=== PATIENT | male | born 1950 | race Caucasian/White ===

== ENCOUNTER 2018-08-03 10:10 | Outpatient (REF) | payer MEDICARE, BC, SELFPAY ==
[2018-08-03 20:44] LABS: Abs Immature Grans 0.01 k/cumm (0.0-0.09); Absolute Basophil Count 0.02 k/cumm (0.0-0.2); Absolute Eosinophil Count 0.08 k/cumm (0.0-0.7); Absolute Lymphocyte Count 1.01 k/cumm (1.2-3.4); Absolute Monocyte Count 0.48 k/cumm (0.11-0.7); Absolute Neutrophil Count 3.02 k/cumm (1.2-6.7); Basophils % 0.4; Eosinophils % 1.7; HCT 44.9 % (40.0-50.0); Immature Grans % 0.2; Lymphocytes % 21.9; Mean Corp. HGB Concentration 33.4 g/dL (32.0-36.0); Mean Corpuscular Hemoglobin 32.8 pg (27.0-33.0); Mean Platelet Volume 10.5 fL (8.0-11.0); Monocytes % 10.4; Neutrophils % 65.4; Platelet Count 160 x1000/uL (130-400); RBC 4.58 m/cumm (4.50-6.00); RBC Distribution Width 12.3 % (11.8-14.1); White Blood Cell Count 4.62 k/cumm (4.4-10.8)
[2018-08-03 21:10] LABS: Anion Gap 11.4 mmol/L (3-11); BUN 18 mg/dL (7-18); CO2 25.6 mmol/L (21.0-32.0); CREATININE 0.93 mg/dL (0.70-1.30); Calculated LDL 139; Chloride 103 mmol/L (98-107); Cholesterol 218 mg/dL (50-200); Glucose 82 mg/dL (70-100); HDL Cholesterol 62 mg/dL (40-60); Potassium 4.4 mmol/L (3.5-5.1); Sodium 140 mmol/L (136-145); TSH (W/Ref FT4) 1.84 uIU/mL (0.358-3.74); Triglyceride 88 mg/dL (30-150)
[2018-08-05 10:19] LABS: PSA, Screening 0.9 ng/ml (0-4.5)
== END 2018-08-03 10:30 ==
LOC: NCHCN 10:10
PROVIDERS: PCP Nurse Practitioner Family; Visit Provider Family Medicine
DX: I10 Essential (primary) hypertension (principal); N28.9 Disorder of kidney and ureter, unspecified; Z00.00 Encounter for general adult medical examination without abnormal findings; Z80.42 Family history of malignant neoplasm of prostate; Z80.8 Family history of malignant neoplasm of other organs or systems
CPT/HCPCS: 80048; 80061; 83721; 84153; 84443; 85025

== ENCOUNTER 2019-01-08 13:08 | Outpatient (REF) | payer MEDICARE, BC, SELFPAY ==
[2019-01-08 19:20] LABS: ALT 31 U/L (16-63); AST 23 U/L (15-37); Albumin 3.9 g/dL (3.4-5.0); Alkaline Phosphatase 61 U/L (46-116); Bilirubin, Total 0.8 mg/dL (0.2-1.0); Calculated LDL 105 mg/dL; Cholesterol 177 mg/dL (50-200); HDL Cholesterol 54 mg/dL (40-60); Triglyceride 90 mg/dL (30-150)
[2019-01-08 19:29] LABS: Bilirubin, Direct 0.22 mg/dL (0.00-0.20)
== END 2019-01-08 13:28 ==
LOC: NCHCN 13:08
PROVIDERS: PCP Family Medicine; Visit Provider Family Medicine
DX: E78.2 Mixed hyperlipidemia (principal)
CPT/HCPCS: 80061; 80076

== ENCOUNTER 2019-08-30 10:44 | Outpatient (REF) | payer MEDICARE, BC, SELFPAY ==
[2019-08-30 21:15] LABS: HCT 44.6 % (40.0-50.0); HGB 14.8 g/dL (13.5-17.5); Mean Corp. HGB Concentration 33.2 g/dL (32.0-36.0); Mean Corpuscular Hemoglobin 32.5 pg (27.0-33.0); Mean Corpuscular Volume 97.8 fL (80-95); Mean Platelet Volume 10.2 fL (8.0-11.0); Platelet Count 202 x1000/uL (130-400); RBC 4.56 m/cumm (4.50-6.00); RBC Distribution Width 12.4 % (11.8-14.1); White Blood Cell Count 4.08 k/cumm (4.4-10.8)
[2019-08-30 21:26] LABS: Calculated LDL 107 mg/dL (<100); Cholesterol 199 mg/dL (<200); HDL Cholesterol 57 mg/dL (40-60); Triglyceride 178 mg/dL (<150)
== END 2019-08-30 11:04 ==
LOC: NCHCN 10:44
PROVIDERS: PCP Family Medicine; Visit Provider Nurse Practitioner Community Health
DX: E78.2 Mixed hyperlipidemia (principal); Z91.89 Other specified personal risk factors, not elsewhere classified; J02.9 Acute pharyngitis, unspecified; K21.9 Gastro-esophageal reflux disease without esophagitis
CPT/HCPCS: 80061; 85027

== ENCOUNTER 2019-12-06 14:10 | Outpatient (REF) | payer MEDICARE, BC, SELFPAY ==
[2019-12-06 22:04] LABS: Abs Immature Grans 0.02 10^3/uL (0.0-0.06); Absolute Basophil Count 0.01 10^3/uL (0.0-0.2); Absolute Eosinophil Count 0.03 10^3/uL (0.0-0.7); Absolute Lymphocyte Count 0.91 10^3/uL (1.2-3.4); Absolute Monocyte Count 0.42 10^3/uL (0.1-0.8); Absolute Neutrophil Count 3.54 10^3/uL (1.2-6.7); Basophils % 0.2; Eosinophils % 0.6; HCT 43.6 % (40.0-50.0); HGB 14.5 g/dL (13.5-17.5); Immature Grans % 0.4; Lymphocytes % 18.5; MCHC 33.3 % (32.0-36.0); MCV 96.2 fL (80-95); MPV 10.3 fL (8.0-11.0); Monocytes % 8.5; Neutrophils % 71.8; Nucleated RBC 0 %; Platelet Count 225 10^3/uL (130-400); RBC 4.53 10^6/uL (4.36-5.78); RDW 12.2 % (11.8-14.1); RDW-SD 43.7 fL; WBC 4.93 10^3/uL (4.4-10.8)
[2019-12-06 22:37] LABS: ALT 31 U/L (16-63); AST 28 U/L (15-37); Albumin 3.8 g/dL (3.4-5.0); Alkaline Phosphatase 64 U/L (46-116); Anion Gap 7.6 mmol/L (3-11); BUN 14 mg/dL (7-18); Bilirubin, Total 0.7 mg/dL (0.2-1.0); CO2 30.4 mmol/L (21.0-32.0); CREATININE 1.08 mg/dL (0.70-1.30); Calcium 9.2 mg/dL (8.5-10.1); Chloride 103 mmol/L (98-107); Glucose 93 mg/dL (74-106); Potassium 4.2 mmol/L (3.5-5.1); Sodium 141 mmol/L (136-145); Total Protein 6.9 g/dL (6.4-8.2)
[2019-12-06 22:41] LABS: ESR 9 mm/hr (1-20)
[2019-12-08 10:06] LABS: Lyme Ab w Rflx to Lyme Confirm Negative (Negative)
[2019-12-09 23:47] LABS: Anaplasma phagocytophilum Negative (Negative); B. miyamotoi PCR Negative (Negative); Babesia divergens/MO-1 Negative (Negative); Babesia duncani Negative (Negative); Babesia microti Negative (Negative); Ehrlichia chaffeensis Negative (Negative); Ehrlichia ewingii/canis Negative (Negative); Ehrlichia muris eauclairensis Negative (Negative)
== END 2019-12-06 14:30 ==
LOC: NCHCN 14:10
PROVIDERS: PCP Family Medicine; Visit Provider Nurse Practitioner Community Health
DX: D72.819 Decreased white blood cell count, unspecified (principal); M79.10 Myalgia, unspecified site
CPT/HCPCS: 80053; 85652; 87798; 85025; 86618

== ENCOUNTER 2020-09-05 11:49 | Outpatient (REF) | payer MEDICARE, BC, SELFPAY ==
[2020-09-04 22:42] LABS: Hemoglobin A1C 5.1 % (<5.7)
[2020-09-04 23:10] LABS: ALT 23 U/L (16-63); AST 53 U/L (15-37); Alkaline Phosphatase 76 U/L (46-116); Anion Gap 9.3 mmol/L (3-11); BUN 12 mg/dL (7-18); Bilirubin, Total 0.6 mg/dL (0.2-1.0); CO2 30.7 mmol/L (21.0-32.0); CREATININE 1.3 mg/dL (0.70-1.30); Calculated LDL 93 mg/dL (<100); Chloride 102 mmol/L (98-107); Cholesterol 189 mg/dL (<200); Glucose 99 mg/dL (74-106); HDL Cholesterol 71 mg/dL (40-60); Magnesium 1.8 mg/dL (1.8-2.4); Potassium 4.2 mmol/L (3.5-5.1); Sodium 142 mmol/L (136-145); Triglyceride 128 mg/dL (<150); Vitamin B12 413 pg/mL (193-986)
== END 2020-09-05 11:50 | disposition home or self-care (01) ==
LOC: NCHCN 11:49
PROVIDERS: PCP Family Medicine; Visit Provider Nurse Practitioner Family
DX: Z00.00 Encounter for general adult medical examination without abnormal findings; Z51.81 Encounter for therapeutic drug level monitoring; K21.9 Gastro-esophageal reflux disease without esophagitis; E78.2 Mixed hyperlipidemia; R03.0 Elevated blood-pressure reading, without diagnosis of hypertension; N28.9 Disorder of kidney and ureter, unspecified
CPT/HCPCS: 80053; 80061; 82607; 83036; 83735

== ENCOUNTER 2021-08-07 16:13 | Outpatient (REF) | payer MEDICARE, BC, SELFPAY ==
[2021-08-07 21:05] LABS: ALT 33 U/L (16-63); AST 34 U/L (15-37); Alkaline Phosphatase 70 U/L (46-116); Anion Gap 9.4 mmol/L (3-11); BUN 18 mg/dL (7-18); Bilirubin, Total 0.5 mg/dL (0.2-1.0); CO2 27.6 mmol/L (21.0-32.0); CREATININE 1.1 mg/dL (0.70-1.30); Calcium 8.7 mg/dL (8.5-10.1); Calculated LDL 109 mg/dL (<100); Chloride 105 mmol/L (98-107); Cholesterol 202 mg/dL (<200); Glucose 84 mg/dL (74-106); HDL Cholesterol 72 mg/dL (40-60); Magnesium 1.9 mg/dL (1.8-2.4); Sodium 142 mmol/L (136-145); Triglyceride 105 mg/dL (<150)
== END 2021-08-07 16:14 | disposition home or self-care (01) ==
LOC: NCHCN 16:13
PROVIDERS: PCP Family Medicine; Visit Provider Nurse Practitioner Family
DX: I10 Essential (primary) hypertension (principal); E78.5 Hyperlipidemia, unspecified; K21.9 Gastro-esophageal reflux disease without esophagitis; Z51.81 Encounter for therapeutic drug level monitoring
CPT/HCPCS: 80053; 80061; 83735

== ENCOUNTER 2021-12-17 12:09 | Outpatient (REF) | payer MEDICARE, BC, SELFPAY ==
[2021-12-17 14:19] LABS: Abs Immature Grans 0.01 10^3/uL (0.0-0.06); Absolute Basophil Count 0.02 10^3/uL (0.0-0.2); Absolute Eosinophil Count 0.05 10^3/uL (0.0-0.7); Absolute Lymphocyte Count 1.01 10^3/uL (1.2-3.4); Absolute Monocyte Count 0.49 10^3/uL (0.1-0.8); Absolute Neutrophil Count 2.98 10^3/uL (1.2-6.7); Basophils % 0.4; Eosinophils % 1.1; HCT 42.1 % (40.0-50.0); HGB 14.3 g/dL (13.5-17.5); Immature Grans % 0.2; Lymphocytes % 22.1; MCH 32.4 pg (27.0-33.0); MCV 95 fL (80-95); MPV 9.8 fL (8.0-11.0); Monocytes % 10.7; Neutrophils % 65.5; Platelet Count 198 10^3/uL (130-400); RBC 4.42 10^6/uL (4.36-5.78); RDW 11.8 % (11.8-14.1); RDW-SD 41.5 fL; WBC 4.56 10^3/uL (4.4-10.8)
== END 2021-12-17 12:10 | disposition home or self-care (01) ==
LOC: NCHCN 12:09
PROVIDERS: PCP Family Medicine; Visit Provider Nurse Practitioner Family
DX: D72.819 Decreased white blood cell count, unspecified (principal)
CPT/HCPCS: 85025

== ENCOUNTER 2022-01-07 15:11 | Outpatient (REF) | payer MEDICARE, BC, SELFPAY ==
[2022-01-07 15:18] LABS: ESR 5 mm/hr (0-20)
[2022-01-07 15:50] LABS: ALT 27 U/L (16-63); AST 29 U/L (15-37); Albumin 3.9 g/dL (3.4-5.0); Alkaline Phosphatase 64 U/L (46-116); Anion Gap 6.2 mmol/L (3-11); BUN 14 mg/dL (7-18); Bilirubin, Total 0.6 mg/dL (0.2-1.0); CO2 29.8 mmol/L (21.0-32.0); Calcium 9.3 mg/dL (8.5-10.1); Calculated LDL 92 mg/dL (<100); Chloride 104 mmol/L (98-107); Cholesterol 195 mg/dL (<200); Estimated GFR 81.47 (mL/min/1.73m2); Glucose 93 mg/dL (74-106); HDL Cholesterol 72 mg/dL (40-60); Potassium 4.2 mmol/L (3.5-5.1); Sodium 140 mmol/L (136-145); Total Protein 7.5 g/dL (6.4-8.2); Triglyceride 156 mg/dL (<150)
[2022-01-07 21:44] LABS: CRP, High Sensitivity <0.34 mg/L (See Note)
[2022-01-08 10:27] LABS: Lyme Ab w Rflx to Lyme Confirm Negative (Negative)
[2022-01-09 20:27] LABS: Anaplasma phagocytophilum Negative (Negative); B. miyamotoi PCR Negative (Negative); Babesia divergens/MO-1 Negative (Negative); Babesia duncani Negative (Negative); Babesia microti Negative (Negative); Ehrlichia chaffeensis Negative (Negative); Ehrlichia ewingii/canis Negative (Negative); Ehrlichia muris eauclairensis Negative (Negative)
== END 2022-01-07 15:12 | disposition home or self-care (01) ==
LOC: NCHCN 15:11
PROVIDERS: PCP Family Medicine; Visit Provider Nurse Practitioner Family
DX: E78.2 Mixed hyperlipidemia (principal); M25.50 Pain in unspecified joint; Z11.8 Encounter for screening for other infectious and parasitic diseases
CPT/HCPCS: 80053; 80061; 85652; 86141; 87798; 86618

== ENCOUNTER 2022-01-31 11:31 | Outpatient (REF) | payer MEDICARE, BC, SELFPAY ==
[2022-01-31 15:27] LABS: Hemoglobin A1C 5.3 % (<5.7)
[2022-01-31 15:51] LABS: TSH (W/Ref FT4) 2.59 uIU/mL (0.36-3.74); Vitamin B12 358 pg/mL (193-986)
[2022-01-31 15:54] LABS: Folate > 20.0 ng/mL (8.6-20.0)
== END 2022-01-31 11:32 | disposition home or self-care (01) ==
LOC: NCHCN 11:31
PROVIDERS: PCP Family Medicine; Visit Provider Nurse Practitioner Family
DX: G62.9 Polyneuropathy, unspecified (principal); I10 Essential (primary) hypertension; E78.2 Mixed hyperlipidemia; R68.89 Other general symptoms and signs; R79.89 Other specified abnormal findings of blood chemistry
CPT/HCPCS: 82607; 82746; 83036; 84443

== ENCOUNTER 2022-02-28 08:55 | Outpatient (REF) | payer MEDICARE, BC, SELFPAY ==
--- OUTSIDE RECORDS SUMMARY | 2022-02-28 08:56 | XMS_ITS | CCD ---
:1950 Author Care Team Providers Name Role Phone REKHA MULTANI Attending Physician Unavailable Vital Signs Unknown or Not Available. Allergies Allergy Code Allergy Type Reaction Status SULFA (SULFONAMIDE ANTIBIOTICS) {Clinical 0 Drug allergy ABDOMINAL PAIN Active monitoring unavailable} Procedures Unknown or Not Available. History of Immunizations Unknown or Not Available. Problems Unknown or Not Available. Results Unknown or Not Available. Active Medications Medication Code Dose Units Frequency Route Modification Start Date/Time Xarelto 20MG [id number] 1 TABLET DAILY ORAL 01/18/2022 Oral Tablet 06:27 Prescription Detail TAKE 1 TABLET ORAL DAILY Xarelto 15MG Oral Tablet [id number] 1 TABLET TWICE A DAY ORAL 01/18/2022 06:26 Prescription Detail TAKE 1 TABLET ORAL TWICE A D AY Medications Administered During Visit Unknown or Not Available. Encounters Encounter Diagnosis Diagnosis Code Start Date Cough, unspecified R059 12/18/2021 Social History Smoking Status Code Start Date End Date Never smoker [id number] Patient Decision Aids Unknown or Not Available. Discharge Instructions You were admitted to [place] [facility] on 12/18/2021 08:21 with a principal diagnosis of Cough, unspecified You were discharged from [facility] on 12/18/2021 08:21 Should you have any questions prior to d ischarge, please contact a member of your healthcare team. If you have left the ho spital and have any questions, please contact your primary care physician. Chief Complaint and Reason For Visit Chief Complaint Date of Onset URI Function Status Unknown or Not Available. Plan of Care Unknown or Not Available. Referral/Transition of Care Unknown or Not Available.
--- OUTSIDE RECORDS SUMMARY | 2022-02-28 08:57 | XMS_ITS | CCD ---
[...] Frequency Route Modification Start Date/Time Xarelto 20MG 7385743 1 TABLET DAILY ORAL 01/18/2022 Oral Tablet 06:27 Prescription Detail TAKE 1 TABLET ORAL DAILY Xarelto 15MG Oral Tablet [id number] 1 TABLET TWICE A DAY ORAL 01/18/2022 06:26 Prescription Detail TAKE 1 TABLET ORAL TWICE A D AY Medications Administered During Visit Unknown or Not Available. Encounters Encounter Diagnosis Diagnosis Code Start Date Right upper quadrant pain R1011 02/07/2022 Social History Smoking Status Code Start Date End Date Never smoker [id number] Patient Decision Aids Unknown or Not Available. Discharge Instructions You were admitted to [facility] on 02/07/2022 09:11 with a principal diagnosis of Right upper quadrant pain You were discharged from [facility] on 02/07/2022 09:11 Should you have any questions prior to d ischarge, please contact a member of your healthcare team. If you have left the spital and have any questions, please contact your primary care physician. Chief Complaint and Reason For Visit Chief Complaint Date of Onset RUQ PAIN Function Status Unknown or Not Available. Plan of Care Unknown or Not Available. Referral/Transition of Care Unknown or Not Available.
--- OUTSIDE RECORDS SUMMARY | 2022-02-28 08:57 | XMS_ITS | CCD ---
[...] Frequency Route Modification Start Date/Time Xarelto 20MG [id number] 1 TABLET DAILY ORAL 01/18/2022 Oral Tablet 06:27 Prescription Detail TAKE 1 TABLET ORAL DAILY Xarelto 15MG Oral Tablet 4266783 1 TABLET TWICE A DAY ORAL 01/18/2022 06:26 Prescription Detail TAKE 1 TABLET ORAL TWICE A D AY Medications Administered During Visit Unknown or Not Available. Encounters Encounter Diagnosis Diagnosis Code Start Date Other pulmonary embolism without acute cor pulmonale I2699 01/25/2022 Social History Smoking Status Code Start Date End Date Never smoker [id number] Patient Decision Aids Unknown or Not Available. Discharge Instructions You were admitted to [facility] on 01/25/2022 13:12 with a principal diagnosis of Other pulmonary embolism without acut e cor pulmonale You were discharged from [facility] on 01/25/2022 13:12 Should you have any questions prior to d ischarge, please contact a member of your healthcare team. If you have left the [facility] and have any questions, please contact your primary care physician. Chief Complaint and Reason For Visit Chief Complaint Date of Onset PULMONARY EMBOLISM Function Status Unknown or Not Available. Plan of Care Unknown or Not Available. Referral/Transition of Care Unknown or Not Available.
[2022-02-28 14:54] LABS: ALT 38 U/L (16-63); AST 45 U/L (15-37); Alkaline Phosphatase 70 U/L (46-116); Anion Gap 6.4 mmol/L (3-11); BUN 13 mg/dL (7-18); Bilirubin, Total 0.7 mg/dL (0.2-1.0); CO2 31.6 mmol/L (21.0-32.0); CREATININE 1.1 mg/dL (0.70-1.30); Calcium 9.2 mg/dL (8.5-10.1); Calculated LDL 73 mg/dL (<100); Chloride 103 mmol/L (98-107); Cholesterol 165 mg/dL (<200); Estimated GFR 72.67 (mL/min/1.73m2); Glucose 96 mg/dL (74-106); HDL Cholesterol 61 mg/dL (40-60); Potassium 4.1 mmol/L (3.5-5.1); Sodium 141 mmol/L (136-145); Total Protein 7.3 g/dL (6.4-8.2); Triglyceride 159 mg/dL (<150)
== END 2022-02-28 08:56 | disposition home or self-care (01) ==
LOC: NCHCN 08:55
PROVIDERS: PCP Family Medicine; Visit Provider Nurse Practitioner Family
DX: E78.2 Mixed hyperlipidemia (principal); I10 Essential (primary) hypertension
CPT/HCPCS: 80053; 80061

== ENCOUNTER 2022-03-06 10:52 | Outpatient (REF) | payer MEDICARE, BC, SELFPAY ==
[2022-03-06 14:22] LABS: Abs Immature Grans 0.02 10^3/uL (0.0-0.06); Absolute Basophil Count 0.01 10^3/uL (0.0-0.2); Absolute Eosinophil Count 0.05 10^3/uL (0.0-0.7); Absolute Lymphocyte Count 1.19 10^3/uL (1.2-3.4); Absolute Monocyte Count 0.42 10^3/uL (0.1-0.8); Absolute Neutrophil Count 2.69 10^3/uL (1.2-6.7); Basophils % 0.2; Eosinophils % 1.1; HCT 42.8 % (40.0-50.0); HGB 14.3 g/dL (13.5-17.5); Immature Grans % 0.5; Lymphocytes % 27.2; MCH 31.8 pg (27.0-33.0); MCHC 33.4 % (32.0-36.0); MCV 95 fL (80-95); Monocytes % 9.6; Neutrophils % 61.4; Platelet Count 178 10^3/uL (130-400); RDW 11.6 % (11.8-14.1); RDW-SD 40.8 fL; WBC 4.38 10^3/uL (4.4-10.8)
== END 2022-03-06 10:53 | disposition home or self-care (01) ==
LOC: NCHCN 10:52
PROVIDERS: PCP Family Medicine; Visit Provider Nurse Practitioner Family
DX: M25.50 Pain in unspecified joint (principal); I10 Essential (primary) hypertension; G62.9 Polyneuropathy, unspecified
CPT/HCPCS: 85025

== ENCOUNTER 2023-07-22 16:22 | Outpatient (REF) | payer MEDICARE, BC, SELFPAY ==
[2023-07-22 21:52] LABS: ALT 27 U/L (16-63); AST 37 U/L (15-37); Alkaline Phosphatase 71 U/L (46-116); BUN 10 mg/dL (7-18); Bilirubin, Total 0.6 mg/dL (0.2-1.0); CREATININE 1.1 mg/dL (0.70-1.30); Calcium 9.6 mg/dL (8.5-10.1); Calculated LDL 88 mg/dL (<100); Chloride 105 mmol/L (98-107); Cholesterol 194 mg/dL (<200); Estimated GFR 71.77 (mL/min/1.73m2); Glucose 97 mg/dL (74-106); HDL Cholesterol 82 mg/dL (40-60); Potassium 3.8 mmol/L (3.5-5.1); Sodium 138 mmol/L (136-145); Total Protein 7.6 g/dL (6.4-8.2); Triglyceride 124 mg/dL (<150)
== END 2023-07-22 16:23 | disposition home or self-care (01) ==
LOC: NCHCN 16:22
PROVIDERS: Visit Provider Family Medicine
DX: E78.5 Hyperlipidemia, unspecified (principal)
CPT/HCPCS: 80053; 80061; 84153

== ENCOUNTER 2023-08-29 11:18 | Outpatient (REF) | payer MEDICARE, BC, SELFPAY ==
--- OUTSIDE RECORDS SUMMARY | 2023-08-29 11:21 | XMS_ITS ---
Author Name Unknown Address [address] [place] [phone] Phone Organization Unknown Address [address] [place] [address] [phone] Phone Care Team Providers Care Independent Film Maker Name Role Phone RANGEL DA SILVA Attending Unavailable Results CT ANGIOGRAPHY CHEST - Compl eted: 01/25/2022 13:54 LOINC: [place], [place] [address] PACS SOFTWARE ARCHITECT REPORT Patient Name: KIM MCKINLEY MRN: Sex: : Age: [id number] M 1950 71 Account: Accession: Admit: StayType: [id number] 01/25/2022 O/P Ordered: Order ID: Submitted: Ordering Provider: 01/25/2022 13:17 [id number] [facility] REKHA MULTANI Completed: Technologist: Resulted: 01/25/2022 13:54 MLL 04/16/2022 11:12 Study Description: CT ANGIOGRAPHY CHEST Study Reason: PULMONARY EMBOLISM TECHNIQUE: Imaging Protocol: CT angiography of the chest was performed using pulmonary embolus protocol. Multi planar reconstructions were performed. CONTRAST MATERIAL Intravenous: Omnipaque 350 Contrast volume: 100 cc COMPARISON: No exams were available for comparison FINDINGS: CHEST: PULMONARY ARTERIES: There are presently no intraluminal filling defects to suggest acute pulmonary emboli. The previously described intraluminal filling defect seen in the right lower lobe vessels is no longer seen. No new intraluminal filling defects. LUNGS: No infiltrates nor pleural effusions. No evidence of pulmonary infarct. MEDIASTINUM: There is no hilar nor mediastinal adenopathy. CARDIAC: Heart size is normal. There is no pericardial effusion.Caliber of the thoracic aorta is within normal limits. No evidence of aortic dissection. The left vertebral artery is noted to originate off the aortic arch instead of originating in conventional fashion off the left subclavian artery. There is no evidence of shift of the interventricular septum. PARTIALLY VISUALIZED UPPERMOST ABDOMEN: No obvious findings OSSEOUS: No significant osseous lesions and no fractures evident. IMPRESSION: 1. [No evidence of acute pulmonary emboli. Previously present intraluminal filling defects in right lower lobe vessels no longer seen. 2. No infiltrates nor evidence of pulmonary infarction. No pleural effusions. No intrathoracic adenopathy. Report Digitally Signed by Faheem Da Silva on 01/25/2022 02:06 PM EST Addendum ------ Addendum dictated 02-14 6:03 PM: This chest CT scan was compared to the prior chest CT scan performed 01/18/2022. Addendum Digitally Signed by Faheem Da Silva on 01/25/2022 06:04 PM EST Addendum ------ Addendum: Upon discussion with BASILIO Fried from [facility] [place] hematology, the images were reviewed from the 18 January and 25 January 2022 exams. The December study mentions thrombus extending into the a right lower lobe segmental and subsegmental branch. This appears artifactual due to mild streak artifact rather than true thrombus. Addendum Digitally Signed by Cira Lagunas on 04/16/2022 11:12 AM EST Social History Type Status Start Date End Date Code Code Syst em Smoking History Never smoker (Never Smoked) [id number] SNOMED CT Sex Male Medications Medication Start Date End Date Route Frequency Dose Code Code System Medication Instructions Home Meds Xarelto 15MG Oral Tablet 01/18/2022 Unknown ORAL TWICE A DAY 1 TABLET [id number] RxNorm TAKE 1 TABLET ORAL TWICE A DAY Xarelto 20MG Oral Tablet 01/18/2022 Unknown ORAL DAILY 1 TABLET [id number] RxNorm TAKE 1 TABLET ORAL DAILY Hospital Discharge Instructions Should you have any questions prior to discharge, please contact a member of your healthcare team. If you have left the hospital and have any questions, please contact your primary care physician. Reason For Referral No Data Found Allergies and Adverse Reactions Allergy Substance Reaction Severity Start Date Concern Status Co de Code System SULFA (SULFONAMIDE ANTIBIOTICS) Moderate Active Plan of Treatment US ABDOMEN LIMITED 1 ORGAN 02/07/2022 CT ANGIOGRAPHY PULMONARY PE 01/25/2022 PRE-OP COVID-19 TESTING 02/02/2022 X-RAY 12/18/2021 Encounters Encounter Diagnosis Start Date Code Code Sys tem Other pulmonary embolism without acute cor pulmonale 1 03/28/2021 SNOMED-CT Personal Care Team Section Performer Name Performer Role Active Date Inactive Da te
--- OUTSIDE RECORDS SUMMARY | 2023-08-29 11:21 | XMS_ITS ---
Author Name Unknown Address [address] [place] [address] [phone] Phone Organization Unknown Address [address] [place] [address] [phone] Phone Care Team Providers Care Public Speaking Teacher Name Role Phone RANGEL DA SILVA Attending Unavailable Results XR CHEST 2V PA AND LATERAL - Completed: 12/18/2021 08:41 [facility]: [place], [place] [address] PACS OPTICAL INSTRUMENT INSPECTOR REPORT Patient Name: KIM MCKINLEY MRN: Sex: : Age: [id number] M 1950 71 Account: Accession: Admit: StayType: [id number] 12/18/2021 E/R Ordered: Order ID: Entered Order: Ordering Provider: 12/18/2021 08:30 [id number] [facility] REKHA MULTANI Completed: Tech Completed: Resulted DTTM: 12/18/2021 08:41 MJP 12/18/2021 09:09 Study Description: XR CHEST 2V PA AND LATERAL Study Reason: URI Technique: 2D digital imaging was performed of the chest. 3 images were obtained. Comparison: None. FINDINGS: MEDIASTINUM: Normal. HEART: Normal. PULMONARY VASCULATURE: Normal. LUNGS: Clear. PLEURAL SPACE: No pleural effusion or pneumothorax. BONE:Within normal limits for the patient's age. OTHER FINDINGS:Normal. IMPRESSION: No acute pulmonary findings. Report Digitally Signed by Timo Cr on 12/18/2021 09:09 AM EDT Social History Type Status Start Date End Date Code Code Syst em Smoking History Never smoker (Never Smoked) [id number] SNOMED CT Sex Male Medications Medication Start Date End Date Route Frequency Dose Code Code System Medication Instructions Home Meds Xarelto 15MG Oral Tablet 01/18/2022 Unknown ORAL TWICE A DAY 1 TABLET 4462903 RxNorm TAKE 1 TABLET ORAL TWICE A DAY Xarelto 20MG Oral Tablet 01/18/2022 Unknown ORAL DAILY 1 TABLET 2086967 RxNorm TAKE 1 TABLET ORAL DAILY Hospital [...] Diagnosis Start Date Code Code Sys tem Cough, unspecified 12/18/2021 SNOMED-CT Personal Care Team Section Performer Name Performer Role Active Date Inactive Da te
--- OUTSIDE RECORDS SUMMARY | 2023-08-29 11:22 | XMS_ITS ---
Author Name Unknown Address [address] [place] [phone] Phone Organization Unknown Address [address] [place] [address] [phone] Phone Care Team Providers Care Stick Puller Name Role Phone RANGEL DA SILVA Attending Unavailable Results US ABD LIMITED ONE ORGAN - C ompleted: 02/07/2022 09:55 LOINC: [place], [place] [address] PACS PAN PULLER REPORT Patient Name: KIM MCKINLEY MRN: Sex: : Age: [id number] M 1950 71 Account: Accession: Admit: StayType: [id number] 02/07/2022 O/P Ordered: Order ID: Submitted: Ordering Provider: 02/07/2022 09:18 [id number] [facility] REKHA MULTANI Completed: Technologist: Resulted: 02/07/2022 09:55 GVS 02/07/2022 10:05 Study Description: US ABD LIMITED ONE ORGAN Study Reason: ABDOMINAL PAIN RUQ TECHNIQUE: Ultrasound abdomen performed using standard protocol. COMPARISON: Prior ultrasound 2012 FINDINGS: There is no ascites evident. LIVER: Liver is hyperechoic indicating steatosis. There are no discrete focal hepatic lesions identified. GALLBLADDER/BILIARY: There are no gallstones. No gallbladder wall edema nor pericholecystic fluid. The common hepatic duct isnot dilated, measuring 3-4mm at the level of emre hepatis. PANCREAS: There is no evidence of pancreatic mass nor dilatation of the pancreatic duct. RIGHT KIDNEY: There is a 2 x 1.6 cm parapelvic cyst. No solid masses. No calculi. No hydronephrosis. ABDOMINAL AORTA AND IVC: Visualized portions exhibit normal caliber. IMPRESSION: 1. No evidence of cholelithiasis nor dilatation of the biliary tree. 2. Hepatic steatosis. Correlation with appropriate hepatic blood work recommended. No discrete focal hepatic lesions identified. 3. 2 cm parapelvic cyst in the right kidney. No solid mass in the right kidney. There is no ascites. Report Digitally Signed by Faheem Da Silva on 02/07/2022 10:05 AM EST Social History Type Status Start Date End Date Code Code Syst em Smoking History Never smoker (Never Smoked) [id number] SNOMED CT Sex Male Medications Medication Start Date End Date Route Frequency Dose Code Code System Medication Instructions Home Meds Xarelto 15MG Oral Tablet 01/18/2022 Unknown ORAL TWICE A DAY 1 TABLET 2235028 RxNorm TAKE 1 TABLET ORAL TWICE A DAY Xarelto 20MG Oral Tablet 01/18/2022 Unknown ORAL DAILY 1 TABLET 5356927 RxNorm TAKE 1 TABLET ORAL DAILY Hospital [...] Diagnosis Start Date Code Code Sys tem Right upper quadrant pain 02/07/2022 SN OMED-CT Personal Care Team Section Performer Name Performer Role Active Date Inactive Da te
--- OUTSIDE RECORDS SUMMARY | 2023-08-29 11:22 | XMS_ITS ---
Author Name Unknown Address [address] [place], [place] [phone] Phone Organization Unknown Address [address] [place] [phone] Phone Care Team Providers Care Retail Product Demo Specialist Name Role Phone REMINGTON BRENDEN Attending Unavailable Results D-DIMER - Collect Date/Time: 08/02/2022 10:25 [facility] ID: [id number] [address] [place], [place], [address] LOINC: [address]-1 Test Value Unit Reference Range Code Code System Flag D-DIMER 0.48 mg/L L=0.19 H=0.50 16705-1 LOINC Social History Type Status Start Date End Date Code Code Syst em Smoking History Never smoker (Never Smoked) 795652610 SNOMED CT Sex Male Medications Medication Start Date End Date Route Frequency Dose Code Code System Medication Instructions Home Meds Xarelto 15MG Oral Tablet 01/18/2022 Unknown ORAL TWICE A DAY 1 TABLET 5470438 RxNorm TAKE 1 TABLET ORAL TWICE A DAY Xarelto 20MG Oral Tablet 01/18/2022 Unknown ORAL DAILY 1 TABLET 0848953 RxNorm TAKE 1 TABLET ORAL DAILY Hospital [...] Diagnosis Start Date Code Code Sys tem Localized edema 08/02/2022 049992273 SNOMED-CT Personal Care Team Section Performer Name Performer Role Active Date Inactive Da te
--- OUTSIDE RECORDS SUMMARY | 2023-08-29 11:23 | XMS_ITS ---
Author Name Unknown Address [address] [place], [place] [phone] Phone Organization Unknown Address [address] [place] [address] [phone] Phone Care Team Providers Care Heat Treat Puller Name Role Phone VINOD Barrera Attending Unavailable RANGEL DA SILVA Primary Unavailable Social History Type Status Start Date End Date Code Code Syst em Smoking History Never smoker (Never Smoked) 835760002 SNOMED CT Sex Male Medications Medication Start Date End Date Route Frequency Dose Code Code System Medication Instructions Home Meds Xarelto 15MG Oral Tablet 01/18/2022 Unknown ORAL TWICE A DAY 1 TABLET 2968707 RxNorm TAKE 1 TABLET ORAL TWICE A DAY Xarelto 20MG Oral Tablet 01/18/2022 Unknown ORAL DAILY 1 TABLET 2540774 RxNorm TAKE 1 TABLET ORAL DAILY Hospital Discharge Instructions Should you have any questions prior to discharge, please contact a member of your healthcare team. If you have left the hospital and have any questions, please contact your primary care physician. Reason For Referral No Data Found Procedures Procedure Name Date Status Code Code Syste m Colorectal Cancer Screening; Colonoscopy On Individual At High Risk 08/20/2022 completed G0105 CPT Allergies and Adverse Reactions Allergy Substance Reaction Severity Start Date Concern Status Co de Code System SULFA (SULFONAMIDE ANTIBIOTICS) Moderate Active Plan of Treatment US ABDOMEN LIMITED 1 ORGAN 02/07/2022 CT ANGIOGRAPHY PULMONARY PE 01/25/2022 PRE-OP COVID-19 TESTING 02/02/2022 X-RAY 12/18/2021 Encounters Encounter Diagnosis Start Date Code Code Sys tem Encounter for screening for malignant neoplasm of colo n 08/20/2022 SNOMED-CT Personal Care Team Section Performer Name Performer Role Active Date Inactive Da te
--- OUTSIDE RECORDS SUMMARY | 2023-08-29 11:23 | XMS_ITS | Continuity of Care Document ---
Author Name Unknown Organization [facility] Address [address] [place] [phone] Phone Care Team Providers Care Acidity Tester Name Role Phone Brant Green Joseph Unavailable Unavailable Allergies, Adverse Reactions, Alerts Substance Reaction Status Criticality No Known Allergies Active No Inform ation Medications Medication Instructions Dosage Effective Dates (start - stop) Status Comments omeprazole 40 mg capsule,delayed release take 1 capsule by oral route every day before a meal 40 MG - Active flonase NASAL - Active simvastatin 10 mg tablet take 1 tablet by oral route every day in the evening 10 MG - Active Procedures Procedure Date Bench Audio Copay Prepayment Office/Outpt New - Low [facility] - Time Bench Audio Advance Directives Directive Yes / No Effective Date File Name No Information Encounters Encounter Description Practice Location Reason(s) For Visit Diagnoses Date Provider Providers Copied on Encounter Office/Outpt New - Low [facility] - Time [facility], [address] [place], [place] [address]uite [address] [place] [address], [id number], [place] tel:[phone] [facility] abnormal response to sounds (chief complaint) dizziness (chief complaint) throat sensation (chief complaint) Sensorineural hearing loss (SNHL) of left ear with restricted hearing of right earDizzinessL aryngopharyng eal reflux (LPR) 2 [place]ant [place]. 1405 [facility], [address] [place], [id number], [place]. tel:[phone] Family History Family Member Type Diagnosis Age At Onset Problem (finding) Family history of malignant neoplasm of thyroid Problem (finding) Family history of Heari ng disorder Problem (finding) Family history of Renal disease Problem (finding) Family history of Thyro id disorder Payers Payer name Insurance type Covered green party ID Authoriza tion(s) Medicare - Part B [employer] [id number] [facility] [id number] Social History Type Description Quantity Date Captured Comments Alcohol Use Details beer 3 drinks weekly Caffeine Use Details Unknown Tobacco Use Status Current non-smoker Smoking Status Never smoker Non-Smoking Tobacco Use Details : No Details Available : No Details Available Sex Male Vital Signs Date / Time: Height Weight BMI Pulse Rate Blood Pressure Temperature Respiratory Rate Body Surface Area Head Circumference Head Circ. Percentile Wt./Nitin. Percentile BMI percentile Pulse Ox Inhaled Ox 3:35 PM 72.00 in 80.739 kg (178.00 lbs) 24.1 4 kg/m eter (2) 96.80 F Chief Complaint And Reason For Visit From encounter dated '03/06/2021 16:25'. abnormal response to sounds (chief complaint). Description: He reports only when he is lying down that certain sounds will cause a physical reaction with pain that may go down his neck. He has had injections into his neck for pain issues. His PCP in [place] ordered an MRI which he has had completed, but does not yet know results. dizziness (chief complaint). Description: The problem is improving. It occurs intermittently. The patient describes it as (an) imbalance, light-headed and spinning. It occurs while sitting. Symptom is aggravated by sitting up. Associated symptoms include tinnitus. Pertinent negatives include chest pain, diplopia, ear drainage, fever, hearing loss, otalgia, palpitations, vomiting and weakness. Additional information: He reports sudden movement of head and neck when he first sits up can cause hissymptoms which can last 30 minutes or so. Denies issues while lying in bed or when standing up. throat sensation (chief complaint). Description: The symptoms began 2 years ago. The symptoms occurrandomly. He states the symptoms are chronic. [facility] daily for past two years. Reason For Referral Reason For Referral No Information History Of Present Illness Encounter Date Complaint History Of Prese nt Illness throat sensation The symptoms be joesph 2 years ago. The symptoms occur randomly. He states the symptoms are chronic. He was diagnosed with laryngopharyngeal reflux in the past and has been taking omeprazole daily for past two years. abnormal response to sounds He r eports only when he is lying down that certain sounds will cause a physical reaction with pain that may go down his neck. He has had injections into his neck for pain issues. His PCP in [place] ordered an MRI which he has had completed, but does not yet know results. dizziness The problem is i mproving. It occurs intermittently. The patient describes it as (an) imbalance, light-headed and spinning. It occurs while sitting. Symptom is aggravated by sitting up. Associated symptoms include tinnitus. Pertinent negatives include chest pain, diplopia, ear drainage, fever, hearing loss, otalgia, palpitations, vomiting and weakness. Additional information: He reports sudden movement of head and neck when he first sits up can cause his symptoms which can last 30 minutes or so. Denies issues while lying in bed or when standing up. Functional Status Date Functional Assessmen t No Information Instructions Date Instruction Additional Infor mation No Information Assessments Type Assessment Date assessment Sensorineural hearin g loss (SNHL) of left ear with restricted hearing of right ear assessment Dizziness assessment Laryngopharyngeal reflux (LPR) J Mental Status Date Cognitive Assessment Normal Orientation Patient Care Teams Name Effective Dates (start - stop) Status Members No Information
[2023-08-29 23:16] LABS: PSA, Diagnostic 1.3 ng/mL (<=6.5)
== END 2023-08-29 11:19 | disposition home or self-care (01) ==
LOC: NCHCN 11:18
PROVIDERS: PCP Family Medicine; Visit Provider Family Medicine
DX: Z80.42 Family history of malignant neoplasm of prostate (principal)
CPT/HCPCS: 84153

== ENCOUNTER 2023-09-30 18:07 | Outpatient (REF) | payer MEDICARE, BC, SELFPAY ==
[2023-09-30 14:56] LABS: ESR 4 mm/hr (0-20)
[2023-09-30 15:33] LABS: C-Reactive Protein < 0.50 mg/dL (<or=0.5)
--- OUTSIDE RECORDS SUMMARY | 2023-09-30 18:12 | XMS_ITS ---
Author Organization Unknown Address [address] [place] [phone] Phone Care Team Providers Care Pier Hand Helper Name Role Phone RANGEL DA SILVA Attending Unavailable Results CT ANGIOGRAPHY CHEST - Compl eted: 01/25/2022 13:54 LOINC: [facility] [place], [place] [address] PACS TAX SPECIALIST REPORT Patient Name: KIM MCKINLEY MRN: Sex: : Age: [id number] M 1950 71 Account: Accession: Admit: StayType: [id number] 01/25/2022 O/P Ordered: Order ID: Submitted: Ordering Provider: 01/25/2022 13:17 [id number] [facility] REKHA MULTANI Completed: Technologist: Resulted: 01/25/2022 13:54 [...] Addendum: Upon discussion with BASILIO Fried from [facility] hematology, the images were reviewed from the [...] em Smoking History Never smoker (Never Smoked) [id number] SNOMED CT Sex Male Medications Medication Start Date End Date Route Frequency Dose Code Code System Medication Instructions Home Meds Xarelto 15MG Oral Tablet 01/18/2022 Unknown ORAL TWICE A DAY 1 TABLET 1507880 RxNorm TAKE 1 TABLET ORAL TWICE A DAY Xarelto 20MG Oral Tablet 01/18/2022 Unknown ORAL DAILY 1 TABLET 0146440 RxNorm TAKE 1 TABLET ORAL DAILY Hospital [...] Name Performer Role Active Date Inactive Da jaswant
--- OUTSIDE RECORDS SUMMARY | 2023-09-30 18:12 | XMS_ITS ---
Author Organization Unknown Address [address] [place] [address] [phone] Phone Care Team Providers Care Enlisted Advisor Name Role Phone RANGEL DA SILVA Attending Unavailable Results XR CHEST 2V PA AND LATERAL - Completed: 12/18/2021 08:41 [facility] [place], [place] [address] PACS NON LICENSED NUCLEAR EQUIPMENT OPERATOR REPORT Patient Name: KIM MCKINLEY MRN: Sex: : Age: [id number] M 1950 71 Account: Accession: Admit: StayType: [id number] 12/18/2021 E/R Ordered: Order ID: Entered Order: Ordering Provider: 12/18/2021 08:30 [id number] [facility] REKHA MULTANI Completed: Tech Completed: Resulted DTTM: [...] em Smoking History Never smoker (Never Smoked) [id number] SNOMED CT Sex Male Medications Medication Start Date End Date Route Frequency Dose Code Code System Medication Instructions Home Meds Xarelto 15MG Oral Tablet 01/18/2022 Unknown ORAL TWICE A DAY 1 TABLET 0657824 RxNorm TAKE 1 TABLET ORAL TWICE A DAY Xarelto 20MG Oral Tablet 01/18/2022 Unknown ORAL DAILY 1 TABLET [id number] RxNorm TAKE 1 TABLET ORAL DAILY Hospital [...]
--- OUTSIDE RECORDS SUMMARY | 2023-09-30 18:12 | XMS_ITS ---
Author Organization Unknown Address [address] [place] [address] [phone] Phone Care Team Providers Care Business Management Specialist Name Role Phone ALLISON LOPEZ Registered Nurse Unavailable LUIS CARLOS MAGAÑA Registered Nurse Unavailable DANITA Anderson Attending Unavailable UNLISTED PROVIDER - REQUESTED Xhandoff Un available Results TROPONIN HIGH SENSITIVITY* - Collect Date/Time: 01/18/2022 01:57 [facility] ID: [id number] [address] [place] [address], [address] LOINC: 04461-8 Test Value Unit Reference Range Code Code System Flag TROPONIN HS 8.2 pg/mL L=0.0 H=60.4 Specimen seq. ADM. PTT PARTIAL THROMBOPLASTIN T ALBERT* - Collect Date/Time: 01/18/2022 01:57 [facility] ID: [id number] [address] [place] [address], [id number] LOINC: 91988-9 Test Value Unit Reference Range Code Code System Flag PTT 23.9 seconds L=24.5 H=32.8 39826-6 LOINC L PT PROTHROMBIN TIME* - Colle ct Date/Time: 01/18/2022 01:57 [facility] ID: [id number] [address] [place] [address], [address] LOINC: 5902-2 Test Value Unit Reference Range Code Code System Flag PROTIME 10.1 seconds L=9.3 H=11.4 5902-2 LOINC INR 1.01 L=2.00 H=3.00 50387-2 LOINC L D-DIMER - Collect Date/Time: 01/18/2022 01:57 [facility] ID: [id number] [address] [place], [place], [address] LOINC: 43527-0 Test Value Unit Reference Range Code Code System Flag D-DIMER 0.32 mg/L L=0.19 H=0.50 33482-1 LOINC COMPREHENSIVE METABOLIC PANE L (CMP) - Collect Date/Time: 01/18/2022 01:57 [facility] ID: [id number] [address] [place], [place], [address] LOINC: 36848-6 Test Value Unit Reference Range Code Code System Flag GLUCOSE 95 mg/dL L=70 H=116 2345-7 LOINC BUN 17 mg/dL L=6 H=25 3094-0 LOINC CREATININE 1.20 mg/dL L=0.67 H=1.17 2160-0 LOINC H SODIUM SERUM 141 mmol/L L=136 H=145 2951-2 LOINC POTASSIUM SERUM 4.0 mmol/L L=3.4 H=5.2 2823-3 LOINC CHLORIDE SERUM 105 mmol/L L=96 H=110 2075-0 LOINC CARBON DIOXIDE (CO2) 32 mmol/L L=22 H=34 2028-9 LOINC ANION GAP 4.4 mmol/L 78351-1 LOINC CALCIUM SERUM 8.4 mg/dL L=8.2 H=10.2 53038-5 LOINC BILIRUBIN TOTAL 0.3 mg/dL L=0.0 H=1.3 1975-2 LOINC ALK. PHOS. 75 U/L L=46 H=116 6768-6 LOINC SGOT (AST) 26 U/L L=15 H=37 1920-8 LOINC SGPT (ALT) 27 U/L L=12 H=78 1742-6 LOINC TOTAL PROTEIN 7.3 gm/dL L=6.0 H=8.0 2885-2 LOINC ALBUMIN 3.7 gm/dL L=3.4 H=5.0 1751-7 LOINC AGE 71 years eGFR (non-Afr.Amer.) 60 mL/min 49382-0 LOINC eGFR (Afr-Tanzanian) 73 mL/min 55190-6 LOINC CBC W/ DIFFERENTIAL* - Colle ct Date/Time: 01/18/2022 01:57 [facility] ID: [id number] [address] [place], [place], [address] LOINC: 56915-2 Test Value Unit Reference Range Code Code System Flag WBC 5.06 th/cmm L=5.00 H=10.00 6690-2 LOINC NEUT % 43.9 % L=40.0 H=80.0 LYMPH % 38.5 % L=10.0 H=50.0 MONO % 13.4 % L=2.0 H=12.0 70503-2 LOINC H EOS % 3.2 % L=0.0 H=8.0 BASO % 0.6 % L=0.0 H=3.0 IG % 0.4 % L=0.0 H=1.1 2514-8 LOINC NRBC % 0.0 % L=0.0 H=0.0 00550-7 LOINC NEUT abs count 2.2 th/cmm L=1.6 H=8.4 751-8 LOINC LYMPH abs count 2.0 th/cmm L=1.5 H=4.0 731-0 LOINC MONO abs count 0.7 th/cmm L=0.2 H=1.0 742-7 LOINC EOS abs count 0.2 th/cmm L=0.0 H=0.5 711-2 LOINC BASO abs count 0.0 th/cmm L=0.0 H=0.2 704-7 LOINC IG abs count 0.0 th/cmm L=0.0 H=0.1 05249-9 LOINC NRBC abs count 0.0 mil/cmm L=0.0 H=0.0 22192-2 LOINC RBC 4.30 mil/cmm L=4.30 H=6.20 789-8 LOINC HEMOGLOBIN 13.9 gm/dL L=13.0 H=17.0 718-7 LOINC HEMATOCRIT 42 % L=45 H=52 4544-3 LOINC L MCV 98 fL L=82 H=92 787-2 LOINC H MCH 32.3 pg L=27.0 H=31.0 785-6 LOINC H MCHC 33.0 % L=32.0 H=36.0 786-4 LOINC RDW-SD 43.2 fL L=39.0 H=49.0 788-0 LOINC PLATELET COUNT 164 th/cmm L=150 H=450 777-[address] ANGIOGRAPHY CHEST - Compl eted: 01/18/2022 05:18 LOINC: [facility] RADIOLOGY [place], [place] [address] PACS VENTILATING EQUIPMENT INSTALLER REPORT Patient Name: KIM MCKINLEY MRN: Sex: : Age: [id number] M 1950 71 Account: Accession: Admit: StayType: [id number] 01/18/2022 E/R Ordered: Order ID: Submitted: Ordering Provider: 01/18/2022 02:52 [id number] PJ JOHNSON Completed: Technologist: Resulted: 01/18/2022 05:18 01/18/2022 10:06 Study Description: CT ANGIOGRAPHY CHEST Study Reason: chest pain Technique: Imaging Protocol: Axial computed tomography images with coronal and sagittal reformatted images were created and reviewed. Contrast Material: Intravenous: Omnipaque. Contrast volume: 100 mL Comparison: Comparison chest x-ray is 01/18/2022. FINDINGS: Tracheobronchial tree: Patent where visualized. Pulmonary parenchyma: No consolidation or dominant measurable mass. No architectural distortion. Pulmonary Arteries: There is a filling defect seen in the segmental branch of the the right lower lobe pulmonary artery extending into the subsegmental branch. Mediastinum and Amaris: No dominant adenopathy or fluid collection. Visualized thyroid gland: Unremarkable. Pleura: No effusion or pneumothorax. Heart: The heart is not dilated. No coronary artery calcifications are seen. No pericardial effusion. No evidence of right heart strain. Aorta: Thoracic aorta non-dilated. Mild atherosclerosis. Upper abdomen: Unremarkable. Tubes, Catheters, and Lines: None. Soft tissues: Unremarkable. Bones: Within normal limits for the patient's age. IMPRESSION: 1. Pulmonary artery embolus in a segmental branch of the right lower lobe. No evidence of right heart strain. 2. No evidence of aortic dissection or aneurysm. Radiation Optimization: All CT scans at this facility use at least one of these dose optimization techniques: automated exposure control; mA and/or kV adjustment per patient size (includes targeted exams where dose is matched to clinical indication); or iterative reconstruction. Report Digitally Signed by Timo Cr on 01/18/2022 10:[address] ANGIOGRAPHY NECK WWO CONT RAST - Completed: 01/18/2022 05:18 LOINC: [facility] [place], [place] [address] PACS VENTILATING EQUIPMENT INSTALLER REPORT Patient Name: KIM MCKINLEY MRN: Sex: : Age: [id number] M 1950 Account: Accession: Admit: StayType: [id number] 01/18/2022 E/R Ordered: Order ID: Submitted: Ordering Provider: 01/18/2022 02:52 [id number] PJ JOHNSON Completed: Technologist: Resulted: 01/18/2022 05:18 01/18/2022 10:18 Study Description: CT ANGIOGRAPHY NECK WWO CONTRAST Study Reason: Change in LOC FINDINGS: CTA Neck W: Common Carotid: Right: No aneurysm, occlusion or significant stenosis. Left: No aneurysm, occlusion or significant stenosis. Minimal atherosclerosis in the distal common carotid artery. External Carotid: Right: No aneurysm, occlusion or significant stenosis. Left: No aneurysm, occlusion or significant stenosis. Internal Carotid: Right: No aneurysm, occlusion or significant stenosis. Left: No aneurysm, occlusion or significant stenosis. Vertebral Artery: Right: No aneurysm, occlusion or significant stenosis. Left: No aneurysm, occlusion or significant stenosis. Lung Apices: Normal. Bones: Within normal limits for the patient's age. Soft Tissues: Normal. IMPRESSION: 1. No occlusion or significant stenosis on the CT angiography of the neck. Report Digitally Signed by Timo Cr on 01/18/2022 10:18 AM EST XR CHEST 2V PA AND LATERAL - Completed: 01/21/2022 14:10 LOINC: [facility] RAD[facility] [place], [place] [address] PACS VENTILATING EQUIPMENT INSTALLER REPORT Patient Name: KIM MCKINLEY MRN: Sex: : Age: [id number] M 1950 71 Account: Accession: Admit: StayType: [id number] 01/18/2022 E/R Ordered: Order ID: Submitted: Ordering Provider: 01/18/2022 14:09 [id number] PJ HUTCHINS Completed: Technologist: Resulted: 01/21/2022 14:09 01/18/2022 09:58 Study Description: XR CHEST 2V PA AND LATERAL Study Reason: Chest Pain Technique: 2D digital imaging was performed of the chest. 2 images were obtained. Comparison: Comparison is 12/18/2021. FINDINGS: MEDIASTINUM: Normal. HEART: Normal. PULMONARY VASCULATURE: Normal. LUNGS: Clear. PLEURAL SPACE: No pleural effusion or pneumothorax. BONE:Within normal limits for the patient's age. OTHER FINDINGS:Normal. IMPRESSION: No acute pulmonary findings. Report Digitally Signed by Timo Cr on 01/18/2022 09:58 AM EST Social History Type Status Start Date End Date Code Code Syst em Smoking History Never smoker (Never Smoked) [id number] SNOMED CT Sex Male Vital Signs Vital Sign Value Unit [place] Value [place] Unit Date/Time Recent/Initial? Code Code System Body Mass Index 24.68 kg/m2 01/18/2022 01:56 Initial 69300 -5 LOINC Systolic Blood Pressure 133 mm[Hg] 01/18/2022 07:34 Most Recent 8480- 6 LOINC Diastolic Blood Pressure 89 mm[Hg] 01/18/2022 07:34 Most Recent 8462- 4 LOINC Systolic Blood Pressure 171 mm[Hg] 01/18/2022 01:56 Initial 8480- 6 LOINC Diastolic Blood Pressure 94 mm[Hg] 01/18/2022 01:56 Initial 8462- 4 LOINC Body Surface Area 2.05 m2 01/18/2022 01:56 Initial 3140- 1 LOINC Height 182.880 0 cm 72.00 in 01/18/2022 01:56 Initial 8302- 2 LOINC O2 Saturation 98 % 2021 07:14 Most Recent 77521 -5 LOINC O2 Saturation 95 % 2021 01:56 Initial 81897 -5 LOINC Pulse 58.0 /min 01/18/2022 07:14 Most Recent 8867- 4 LOINC Pulse 68.0 /min 01/18/2022 01:56 Initial 8867- 4 LOINC Respiration 17 /min 01/19/20 05:15 Most Recent 9279- 1 LOINC Respiration 18 /min 01/19/20 01:56 Initial 9279- 1 LOINC Temperature 35.9 Christelle 96.6 F 01/19/20 01:56 Initial 8310- 5 LOINC Weight 82.55 kg 182.00 lbs 01/18/2022 01:56 Initial 85124 -7 [facility] Medications Medication Start Date End Date Route Frequency Dose Code Code System Medication Instructions Home Meds Xarelto 15MG Oral Tablet 01/18/2022 Unknown ORAL TWICE A DAY 1 TABLET [id number] RxNorm TAKE 1 TABLET ORAL TWICE A DAY Xarelto 20MG Oral Tablet 01/18/2022 Unknown ORAL DAILY 1 TABLET 8231727 RxNorm TAKE 1 TABLET ORAL DAILY Hospital [...] pulmonary embolism without acute cor pulmonale 1 03/20/2021 SNOMED-CT Personal Care Team Section Performer Name Performer Role Active Date Inactive Da jaswant
--- OUTSIDE RECORDS SUMMARY | 2023-09-30 18:13 | XMS_ITS | Referral Summary ---
Author Organization [facility] Address [address] [place] [address] Care Team Providers Care Bowling Ball Engraver Name Role Phone Alma Rosa Flor ACHARYA Primary Care Provider Encounters Date Type Department Care Team Description 09/30/2023 Lab Requisition [facility] Pathology & Laboratory [address] [address] Outr Resulting Lab, Provider 08/29/2023 Lab Requisition [facility] Pathology & Laboratory [facility] [address] [place] [address] Outr Resulting Lab, Provider from Last 3 Months Allergies Active Allergy Reactions Criticality Noted Date Comments Levofloxacin Other (See Comments) 09/16/2019 Caused liver problems Sulfa (Sulfonamide Antibiotics) Nausea Only 09/16/2019 Medications Medication Sig Dispensed Refills Start Date End Date Status omeprazole (PRILOSEC) 20 mg capsule Take 40 mg by mouth daily. Active Cetirizine 10 mg capsule Take 10 mg by mouth daily. Active ubidecarenone (COQ-10 ORAL) Take 200 mg by mouth daily. Active LORazepam (ATIVAN) 0.5 mg tablet Take 1 mg by mouth at bedtime as needed. Active ibuprofen (MOTRIN) 200 mg tablet Take 200 mg by mouth every 6 hours as needed for Pain. Active simvastatin (ZOCOR) 10 mg tablet Take 20 mg by mouth every evening. Active UNABLE TO FIND 1 Tablet 3 times daily. Med Name: Jenny Morris Active Social History Tobacco Use Types Packs/Day Years Used Date Smoking Tobacco: Never Passive Smoke Exposure: Current Smokeless Tobacco: Never Tobacco Cessation:Counseling Given: Not Answered Alcohol Use Standard Drinks/Week Comments Yes 3 (1 standard drink = 0.6 oz pur e alcohol) Interpersonal Safety Answer Date Record ed Physically Hurt Never 09/26/2019 Verbally Threaten Not on file 09/26/2019 Sex and Gender Information Value Date Recorded Sex Assigned at Not on file Gender Identity Male 09/13/2019 10:34 EDT Sexual Orientation Not on file Last Filed Vital Signs Vital Sign Reading Time Taken Comments Blood Pressure 168/80 04/15/2022926 EST Pulse 60 04/15/2022925 EST Temperature 36.9 ??C (98.4 ??F) 04/15/2022925 EST Respiratory Rate 16 04/15/2022925 EST Oxygen Saturation 99% 04/15/2022925 EST Inhaled Oxygen Concentration - - Weight 83.8 kg (184 lb 12.8 oz) 04/15/2022925 EST Height 180.8 cm (5' 11.18) 04/15/2022925 EST Body Mass Index 25.64 04/15/2022925 EST Functional Status Functional Status Response Date of Assess ment Because of a physical, menta l, or emotional condition, does this person have difficulty doing errands alone such as visiting a doctor's office or shopping? No 12/21/2020 Cognitive Status Response Date of Assessm ent Because of a physical, menta l, or emotional condition, does this person have serious difficulty concentrating, remembering, or making decisions? No 04/15/2022 Plan of Treatment Not on file Procedures Procedure Name Priority Date/Time Associated Diagnosis Comments PSA TOTAL, DIAGNOSTIC Routine 08/29/2023 10:40 EDT from Last 3 Months Results * PSA TOTAL, DIAGNOSTIC (08/29/2023 10:40 EDT) PSA 1.3 <=6.5 ng/mL 08/29/2023 23:12 EDT [facility] Blood VENOUS BLOOD / Unknown 08/29/2023 10:40 EDT 08/29/2023 21:41 EDT Narrative [facility] - 08/29/2023 23:12 EDT NOTE: Serum PSA concentration should not be interpreted as absolute evidence for the presence or absence of malignant disease. Assayed on Siemens ADVIA Centaur XPT using chemiluminescent technology.??Values obtained by using different assay methods cannot be used interchangeably. Provider Outr Resulting Lab CHEMISTRY & BLOOD GAS ORDERABLES [facility] [address] [place] [address] from Last 3 Months Care Teams Bowling Ball Engraver Relationship Specialty Start Date End Date Flor St FNP PCP - General 09/16/19
--- OUTSIDE RECORDS SUMMARY | 2023-09-30 18:13 | XMS_ITS | Encounter Summary ---
Author Organization [facility] Address [address] [place] [address] Care Team Providers Care Clay Maker Name Role Phone Flor St Primary Care Provider Reason for Visit * (Routine) - Receiving Office to Obtain Authorization Specialty Diagnoses / Procedures Referred By Sylvester saldana Referred To Contact Procedures XR OUTSIDE IMAGES NEURO Unknown, Provider, Referral ID Status Reason Start Date Expiration Date Visits Requested Visits Authorized [id number] Receiving Office to Obtain Authorization 07/25/2020 1 1 Encounter Details Date Type Department Care Team (Latest Contact Info) Description 12/20/2019 - 12/20/2019 23:59 EDT Hospital Encounter [facility] Secondary Reads [place] Discharge Disposition: Home or Self Care Social History Tobacco Use Types Packs/Day Years Used Date Smoking Tobacco: Never Smokeless Tobacco: Never Alcohol Use Standard Drinks/Week Comments Yes 3 (1 standard drink = 0.6 oz pur e alcohol) Interpersonal Safety Answer Date Record ed Physically Hurt Never 09/26/2019 Verbally Threaten Not on file 09/26/2019 Sex and Gender Information Value Date Recorded Sex Assigned at Not on file Gender Identity Male 09/13/2019 10:34 EDT Sexual Orientation Not on file documented as of this encounter Medications at Time of Discharge Medication Sig Dispensed Refills Start Date End Date Cetirizine 10 mg capsule Take 10 mg by mouth daily. omeprazole (PRILOSEC) 20 mg capsule Take 40 mg by mouth daily. ubidecarenone (COQ-10 ORAL) Take 200 mg by mouth daily. documented as of this encounter Discharge Disposition Disposition Code Departure Means Destination Home or Self Care documented in this encounter Plan of Treatment Not on file documented as of this encounter Procedures Procedure Name Priority Date/Time Associated Diagnosis Comments XR OUTSIDE IMAGES NEURO Routine 07/25/2020 16:13 EDT documented in this encounter Results * XR OUTSIDE IMAGES NEURO (07/25/2020 16:13 EDT) Narrative 07/25/2020 16:13 EDT This is a non-reportable exam. Provider Unknown MD [facility] OTHER IMAGING OR DERABLES documented in this encounter Visit Diagnoses Not on filedocumented in this encounter Care Teams Clay Maker Relationship Specialty Start Date End Date Flor St FNP PCP - General 09/16/19 documented as of this encounter
--- OUTSIDE RECORDS SUMMARY | 2023-09-30 18:13 | XMS_ITS | Clinical Summary ---
Author Organization [facility] Address [address] [place] [address] Care Team Providers Care Cork Insulation Setter Name Role Phone Flor St Primary Care Provider Allergies Active Allergy Reactions Criticality Noted Date [...] times daily. Med Name: Jenny Morris Active Encounters Date Type Department Care Team Description 09/30/2023 Lab Requisition [facility] Medicine [address] [address] Outr Resulting Lab, Provider 08/29/2023 Lab Requisition [facility] & Laboratory [address] [address] Outr Resulting Lab, Provider from Last 3 Months Surgical History Surgery Date Site/Laterality Comments KNEE SURGERY Right NASAL SINUS SURGERY salivary surgery Medical History Medical History Date Comments Heartburn Family History Medical History Relation Comments Cancer Father Cancer Mother Thyroid Disease Mother Relation Status Comments Father Mother Social History Tobacco Use Types Packs/Day Years [...] 10:34 EDT Sexual Orientation Not on file Obstetrics History Last Filed Vital Signs Vital Sign Reading Time Taken Comments Blood Pressure 168/80 04/15/2022 0927 EST Pulse 60 04/15/2022 0926 EST Temperature 36.9 ??C (98.4 ??F) 04/15/2022 0926 EST Respiratory Rate 16 04/15/2022 0926 EST Oxygen Saturation 99% 04/15/2022 0926 EST Inhaled Oxygen Concentration - - Weight 83.8 kg (184 lb 12.8 oz) 04/15/2022 0926 EST Height 180.8 cm (5' 11.18) 04/15/2022 0926 EST Body Mass Index 25.64 04/15/2022 0926 EST Plan of Treatment Health Maintenance Due Date Last Done Comments Hepatitis C Screen 1950 RSV Immunization ( o r 60+ Years) (1 - 1-dose 60+ series) 2012 Fall Risk Screening 2017 COVID-19 Vaccine ( season) 2022 Procedures Procedure Name Priority Date/Time Associated Diagnosis Comments PSA TOTAL, DIAGNOSTIC Routine 08/29/2023 10:40 EDT from Last 3 Months Results * PSA TOTAL, DIAGNOSTIC (08/29/2023 10:40 EDT) PSA 1.3 <=6.5 ng/mL 08/29/2023 23:[address] [facility] Blood VENOUS BLOOD / Unknown 08/29/2023 10:40 EDT 08/29/2023 21:[address] [facility] - 08/29/2023 23:12 EDT NOTE: Serum PSA concentration should not be interpreted as absolute evidence for the presence or absence of malignant disease. Assayed on Siemens ADVIA Centaur XPT using chemiluminescent technology.??Values obtained by using different assay methods cannot be used interchangeably. Provider Outr Resulting Lab CHEMISTRY & BLOOD GAS ORDERABLES [facility] [address] [place] [address] from Last 3 Months Care Teams Cork Insulation Setter Relationship Specialty Start Date End Date Flor St FNP PCP - General 09/16/19
--- OUTSIDE RECORDS SUMMARY | 2023-09-30 18:13 | XMS_ITS | Encounter Summary ---
Author Organization [facility] Address [address] [place] [address] Care Team Providers Care Rac Specialist Name Role Phone [address] Primary Care Provider [phone] Reason for Visit * Reason Comments Follow-up Encounter Details Date Type Department Care Team (Late st Contact Info) Description 04/25/2022 8:00 EST Telemedicine [facility] Hematology & Oncology - [facility] [address] [place] [address] Flory Fried PA-C [address] [facility], [address] [place] [address] Rib pain (Primary Dx); Family history of multiple myeloma Social History Tobacco Use Types Packs/Day Years Used Date Smoking Tobacco: Never Passive Smoke Exposure: Current Smokeless Tobacco: Never Alcohol Use Standard Drinks/Week [...] on file documented as of this encounter Functional Status Functional Status Response Date of [...] concentrating, remembering, or making decisions? No 04/15/2022 documented as of this encounter Patient Instructions * Patient Instructions* Flory Fried PA-C - 04/25/2022 8:00 EST Ayan Robbins, it was so nice to see you again. As discussed during our visit, my recommendations are as follows: - stop Xarelto - come to the [facility] lab for the monoclonal protein diagnostic panel (blood draw) - once results received, I will advise whether you should follow up with your PCP or need a referral to one of my hematology colleagues as well - follow up with your PCP as planned next week. I will send them my note Feel free to contact me via [employer] or call the office if you have any questions/concerns. Thanks, Flory Fried PA-C documented in this encounter Progress Notes * Flory Fried PA-C - 04/25/2022 0800 EST Thrombosis & Hemostasis Program ([facility]) Follow Up Visit Date of Service: 04/25/2022 Reason for Visit: follow up Problem List: There are no problems to display for this patient. Telemedicine visit information: The concept of ???Telemedicine?? has been described to the patient. Patient has been informed of the anticipated benefits and possible risks. Patient understands the information provided regarding telemedicine, has had the opportunity to ask questions about this information, and all questions havebeen answered to patient???s satisfaction. Patient consents for the use of telemedicine in his/her medical care and authorizes the transmission of any relevant medical information to providers and their staff involved in patient???s medical or mental health care. Today's visit was provided through telemedicine video conferencing: The location of the patient : home in [place] The location of the provider: private home office in [place] Participants: patient, provider Subjective: Jose Manuel presents to the [facility] clinic today for short term follow up. Since last visit, Tank Riveter al with updates- per discussion with Radiologist at [facility] his initial CTA Chest diagnosing the PEwas found to be artifact instead on second read last week. Tank Riveter advised him to stop Xarelto but he weaned himself off. Symptoms are unchanged from previous visit. Continues with bilateral rib pain. Denies SOB, CAT, LE edema/pain/warmth/redness. Reviewed discussion at the case conference yesterday re: multiple myeloma evaluation that Jose Manuel is requesting. Will order a monoclonal protein diagnostic panel and he will have this drawn at [facility]. Says he learned since last visit that a maternal cousin just from multiple myeloma as well which has contributed to some anxiety already due to his father's history. Says he sees his PCP next week in follow up. ROS: ROS - pertinent positives and negatives as above Social History: Patient reports that he has never smoked. He has been exposed to tobacco smoke. He has never used smokeless tobacco. He reports current alcohol use of about 3.0 - 6.0 standard drinks per week. He reports that he does not use drugs. Medications: Outpatient Encounter Medications as of 04/25/2022: ??? Cetirizine 10 mg capsule, 10 mg, oral, DAILY (Patient not taking: No sig reported) ??? ibuprofen (MOTRIN) 200 mg tablet, 200 mg, oral, Q6H PRN (Patient not taking: Reported on 04/15/2022) ??? LORazepam (ATIVAN) 0.5 mg tablet, 1 mg, oral, AT BEDTIME PRN ??? omeprazole (PRILOSEC) 20 mg capsule, 40 mg, oral, DAILY ??? [DISCONTINUED] rivaroxaban (XARELTO ORAL), 20 mg, oral, DAILY ??? simvastatin (ZOCOR) 10 mg tablet, 20 mg, oral, QPM ??? ubidecarenone (COQ-10 ORAL), 200 mg, oral, DAILY ??? UNABLE TO FIND, 1 Tablet, TID Allergies: Patient is allergic to levofloxacin and sulfa (sulfonamide antibiotics). Physical Exam: There were no vitals filed for this visit. Estimated body mass index is 25.64 kg/m?? as calculated from the following: Height as of 04/15/22: 180.8 cm (71.18). Weight as of 04/15/22: 83.8 kg (184 lb 12.8 oz). appears well, alert and oriented x 3, no cough, no respiratory distress, clear and fluent speech, no scleral icterus, no jaundice, no visible rashes. Labs: Basic Metabolic Panel No results found for: NA, K, CL, CO2, BUN, CREATININE, CALCGFR, CAION, CALCIUM, CALCCA, MG, PHOS, FLUOR Gastrointestinal No results found for: LDH, ALKPHOS, AST, ALT, GGT, AMMONIA, CONJBILI, UNCONJBILI, DELTABILI, BILIRUBIN, BILITOT, TBIL, TP, ALB, LABALBU, AGRATIO, GLOB, LIPASE, AMYLASE Complete Blood Count No results found for: ABO, ABORH, RH, WBC, RBC, HGB, HCT, MCV, MCH, MCHC, PLT,MPV, RDWCV Differential (Absolute) No results found for: DIFFTYPE, SEGSABS, NEUTROABS, ABSBAND, LYMPHSABS, MONOSABS, EOSABS, BASOSABS, METAABS, MYELOABS, PROMYELOABS, BLASTSABS, ABSOTHER, NRBC Anemia Lab Results Component Value Date [id number] 12/20/2019 Coagulation No results found for: PROTIME, INR, PTT, PATT50, DDIMER, ANTITHROM, TFQYUBSPYS1E, FACTVIIIFA8, PROTCCLOT, PROTSCLOT, CARDIOLIGGC, CARDIOLIGMC, DRVVT, PROTHRPROGMU Imaging: Pending receipt of Addended CTA Chest report from 01/18/22 (requested from [facility]) See CTA Chest report 01/25/23 from [facility] in [place] (unchanged) Assessment: Jose Manuel Robbins is a 71 year old male PMHx relevant for HLD and cervical instability who initially presented to the [facility] on 04/15/22 as referred by his PCP's office regarding shelter managementfor a PE diagnosed in Dec 2021. In reviewing Jose Manuel' symptoms, labs, imaging, and course of anticoagulation, I was skeptical about the accuracy of the PE diagnosis. His symptoms consist of bilateral rib pain since Oct 2021 which is largely unchanged despite almost 3 months of anticoagulation. During the ED visit at [facility] 01/18/22 when the PE was reported on his CTA Chest, he had a negative D dimer. A CTA Chest days later on 01/25/23 showed no PE. There was no infarct mentioned on the CT, and even if not documented, rib pain from PE typically improved over a couple of weeks and would not persist unchanged for several months. On 04/16/21, I discussed Jose Manuel' CTA Chest from 01/18/[address] Love Lagunas (Radioligist at [facility]) and asked for a secondary read. Per her verbal report, there appeared to be a linear artifact that mimicked the appearance of a PE but extends beyond the end/edge of the pulmonary artery so she would favor artifact over PE. She stated she would addend the report to reflect this- I have requested but to yet received this report. Based on our conversation, I contacted Jose Manuel and advised him to stop Xarelto and it appears he never had a PE in the first place. As an aside, Jose Manuel is quite anxious about his ongoing bilateral rib pain for which I do not have a specific explanation. He is requested further evaluation for multiple myeloma based on a history of this in his father (with similar symptoms). He also reports his maternal cousin just passed from multiple myeloma too. I have reviewed the CXR and CT scans which do not identify any bony lesions. His CBC from Dec 2021 shows findings consistent with alcohol consumption (macrocytosis). He has a Cr of 1.2. I do not have results of a UA performed by his PCP 01/24/23 but per notes it was WNL. I think there is a low likelihood of multiple myeloma but since this is not my specific area of expertise, I discussed his situation at the [facility] case conference held 04/24/22. The recommendation was to order a monoclonal protein diagnostic panel and if this is negative, there should be no concern for multiple myeloma. I will place this order today, and if the results are abnormal, I will refer him to one of the Hematologists who manages this diagnosis. Discussed Jose Manuel can follow up with his PCP and does not need ongoing [facility] management at this time. If panel ordered today is normal, defer additional work up for rib pain to his PCP. If abnormal, I will refer him to one of my Hematology colleagues. Plan: - Xarelto has been discontinued - monocolonal protein diagnostic panel ordered- if normal no Hematology follow up needed. If abnormal, will refer to Hematology colleagues - f/u with PCP re: other etiologies of bilateral rib pain as well - Follow-up: with PCP +/- Hematology pending results of above lab work Please contact my office with questions/concerns. I spent a total of 30 minutes on the date of this encounter meeting with the patient and reviewing documentation/coordinating care as described in the above note. Flory Fried PA-C 04/25/2022 8:36 Thrombosis and Hemostasis Program CC: [address] documented in this encounter Plan of Treatment Not on file documented as of this encounter Visit Diagnoses Diagnosis Rib pain- Primary Chest pain, unspecified Family history of multiple myeloma Family history of other lymphatic and hematopoietic neoplasms documented in this encounter Discontinued Medications Medication Sig Discontinue Reason Start Date End Da te rivaroxaban (XARELTO ORAL) Take 20 mg by mouth daily. 04/25/2022 documented as of this encounter Care Teams Rac Specialist Relationship Specialty Start Date End Date Flor St FNP PCP - General 09/16/19 documented as of this encounter
--- OUTSIDE RECORDS SUMMARY | 2023-09-30 18:13 | XMS_ITS | Encounter Summary ---
Author Organization [facility] Address [address] [place] [address] Care Team Providers Care City Driver Name Role Phone Neetujennieaniceto Flor ACHARYA Primary Care Provider [phone] Reason for Visit * Reason Comments New Patient Visit * Consult (Routine) - Authorization Not Required Specialty Diagnoses / Procedures Referred By Contlizzie t Referred To Contact Diagnoses Pulmonary embolism ([facility]) Jen Herman, DESK MANAGER [address] [place] [address] [facility] Ep2 Hem/Onc [address] [place] [address] Referral ID Status Reason Start Date Expiration Date Visits Requested Visits Authorized [id number] Authorization Not Required 1 1 Encounter Details Date Type Department Care Team (Late st Contact Info) Description 04/15/2022 9:20 EST Office Visit [facility] Hematology & Oncology - [facility] [address] [place] [address] Flory Fried PA-C [address] [facility], [address] [place] [address] Pulmonary embolism without acute cor pulmonale, unspecified chronicity, unspecified pulmonary embolism type (HCC-CMS) (Primary Dx) Social History Tobacco Use Types Packs/Day Years [...] on file documented as of this encounter Last Filed Vital Signs Vital Sign Reading Time Taken Comments Blood Pressure 168/80 04/15/2022926 EST Pulse 60 04/15/2022 09 EST Temperature 36.9 ??C (98.4 ??F) 04/15/2022 09 EST Respiratory Rate 16 04/15/2022925 EST Oxygen Saturation 99% 04/15/2022925 EST Inhaled Oxygen Concentration - - Weight 83.8 kg (184 lb 12.8 oz) 04/15/2022 09 EST Height 180.8 cm (5' 11.18) 04/15/2022 09 EST Body Mass Index 25.64 04/15/2022 09 EST documented in this encounter Functional Status Functional Status Response [...] No 04/15/2022 documented as of this encounter Progress Notes * Flory Fried PA-C - 04/15/2022 09 EST Thrombosis & Hemostasis Program (THP) Consult H&P Date of Service: 04/15/2022 PCP: Flor St Referring MD: Jen Herman Reason for Visit: possible PE HPI: Jose Manuel Robbins is a 71 year old male PMHx relevant for HLD and cervical instability who presents tot [facility]P clinic as referred by his PCP's office regarding extermination supervisor management for a PE diagnosed inNov 2021. He presents to clinic accompanied by his . Jose Manuel reports he began having bilateral rib pain beginning in Oct 2021. He first noticed these symptoms while golfing. Since October 2021, these symptoms ave waxed and waned without specific trigger. He has not found any specific palliative or provocative factors. The pain can resolve for 1-2 days but reliably recurs on its own. It is generally a 3 or 4 out of 10 in severity. He reports he hasbeen consistently exercising throughout this timeframe- going to the gym helps with neck pain and symptoms related to his cervical instability. He confirms that his rib pain does not worsen with activity/exercise. He thinks his endorphins from the workout may actually lessen his pain. He denies anySOB or CAT. He does experience dizziness at times which he attributes to his cervical issues- this is long standing and essentially unchanged. He knows the triggers for his dizziness and tries to avoid those. He denies cough, hemoptysis, B symptoms. Further denies LE edema/pain/wamrth/redness. Jose Manuel saw his PCP initially for this on 12/17/21. CXR and CBCd ordered and unremarkable. He states he went to [facility] ED on 01/18/23 due to the rib pain. ED note mentions 2 episodes of dizziness as well. ED work up included: - CBC WNL except Hct 42, monocytes 13.4%, MCV 98, MCH 32.3 - CMP WNL except Cr 1.2 - PT 23.9, INR 1.01 - D dimer 0.32 (WNL) - Troponin negative - EKG- sinus jaylin - CXR negative - CTA Neck: no occlusion or significant stenosis on the CT angiography of the neck - CTA Chest: pulmonary artery embolus in a segmental branch of the right lower lobe. No evidence of right heart strain. No evidence of aortic dissection or aneurysm - Started on Xarelto 15 mg BID and discharged. Possible provoking/contributing factors July-Oct 2021: - no hospitalizations overnight - no surgeries - when dealing with neck pain, more active to try to help symptoms as opposed to innactive - no immobility - has never had COVID-19, 1 cold/sinus issue in Nov - swollen R knee beginning of Oct 2021, no major injury/fracture. Resolved within days without intervention - no travel * platelet rich plasma injection into neck on 10/26/22 Jose Manuel reports good compliance with Xarelto 15 mg BID x 3 weeks, then 20 mg daily thereafter. He didmiss 3-4 days about 1 months ago due to an issue getting the medication from his mail order pharmacy. He denies any bleeding side effects. Reports his symptoms have not changed with Xarelto on board for almost 3 months. He did go to his PCP on 01/24/23 with continued rib pain. UA WNL. Repeat CTA Ches t 01/25/22 showed no PE. Jose Manuel expresses significant emotional stress and anxiety over his continued rib pain. He is concerned that he undiagnosed multiple myeloma. Reports his father's MM symptoms were similar to what he isexperiencing so he is very concerned about this. Would like additional testing to rule this out. Personal Hx of VTE or malignancy: - SCC of cheek- sees Dermatology annually in [place] (missed Feb 2022) - no prior Hx of VTE Family Hx: - father: multiple myeloma, kidney issues. Phlebitis after long stay in the hospital (before MM Dx,about 50 yrs old). No halfway issues- worse compression socks - mother: of thyroid cancer - 1 brother: has [employer]- effects his extremitites. WC bound. Prostate CA. Was tested for an MM marker and found to have it but not diagnosed with multiple myeloma. Jose Manuel adds my brother told me he wished he never found out about it - 1 sister: thyroid issues, on medication - MGM: ND - MGF: in sleep in his 90s - PGM: ND - PGF: emphysema work-related - Jose Manuel does not have children Age appropriate cancer screening: - colonoscopy was 5 yrs ago- found a couple of polyps. Recommended 5 yr follow up (pending)- on hold as he is on Xarelto - PSA WNL in 2019 (per PCP note 01/24/22) ROS: ROS pertinent positives and negatives as above Past Medical History: Patient has a past medical history of Heartburn. Past Surgical History: Patient has a past surgical history that includes knee surgery (Right) and Nasal sinus surgery. Family History: Patient's Family History Problem Relation Age of Onset ??? Cancer Mother ??? Thyroid Disease Mother ??? Cancer Father Social History: Patient reports that he has never smoked. He has been exposed to tobacco smoke. He has never used smokeless tobacco. He reports current alcohol use of about 3.0 - 6.0 standard drinks per week. He reports that he does not use drugs. Social History Social History Narrative ??? Not on file Medications: Outpatient Encounter Medications as of 04/15/2022: ??? Cetirizine 10 mg capsule, 10 mg, oral, DAILY (Patient not taking: No sig reported) ??? ibuprofen (MOTRIN) 200 mg tablet, 200 mg, oral, Q6H PRN (Patient not taking: Reported on 04/15/2022) ??? LORazepam (ATIVAN) 0.5 mg tablet, 1 mg, oral, AT BEDTIME PRN ??? omeprazole (PRILOSEC) 20 mg capsule, 40 mg, oral, DAILY ??? rivaroxaban (XARELTO ORAL), 20 mg, oral, DAILY ??? simvastatin (ZOCOR) 10 mg tablet, 20 mg, oral, QPM ??? ubidecarenone (COQ-10 ORAL), 200 mg, oral, DAILY ??? UNABLE TO FIND, 1 Tablet, TID Allergies: Patient is allergic to levofloxacin and sulfa (sulfonamide antibiotics). Objective: BP (!) 168/80 Pulse 60 Temp 36.9 ??C (98.4 ??F) (Skin) Resp 16 Ht 180.8 cm (71.18) Wt 83.8 kg (184 lb 12.8 oz) SpO2 99% BMI 25.64 kg/m?? Estimated body mass index is 25.64 kg/m?? as calculated from the following: Height as of this encounter: 180.8 cm (71.18). Weight as of this encounter: 83.8 kg (184 lb 12.8 oz). Physical Exam: General: No acute distress, alert and oriented times three; conversing appropriately Cardiovascular: Regular rate and rhythm, no murmurs Pulmonary: Clear to auscultation, No wheeze, good air movement throughout Extremities: No dependent edema on either lower extremity. No palpable cords, nodularities, venous hyperpigmentation changes, venous ectasias, or varicosities. No pain on calf compression. Labs: Basic Metabolic Panel No results found [...] NRBC Anemia Lab Results Component Value Date [id number] 490 12/20/2019 Coagulation No results found for: PROTIME, INR, PTT, PATT50, DDIMER, ANTITHROM, [id number], FACTVIIIFA8, PROTCCLOT, PROTSCLOT, CARDIOLIGGC, CARDIOLIGMC, DRVVT, PROTHRPROGMU Imaging: *Refer to scans for imaging from [facility]* Assessment: Jose Manuel Robbins is a 71 year old male PMHx relevant for HLD and cervical instability [facility]'s [facility] regarding extermination supervisor management for a PE diagnosed inNov 2021. He report bilateral rib pain since Oct 2021 and had an ED evaluation on 01/18/22 at [facility]. During this evaluation, he had a negative D Dimer, unremarkable CBCd, CMP, and a CTA Chest with a RLL segmental PE. He has been on therapeutic Xarelto (with load) since 01/18/22 (almost 3 months) without any change in his symptoms. He had a repeat CTA Chest at [facility] on 01/25/23 with no PE. I discussed with Jose Manuel and his that I am not sure if he truly had a PE in the first place. I doubt this diagnosis based on his clinic presentation, negative D dimer, and no effect from 3 months of Xarelto. Rib pain can occur with PE as a result of pulmonary infarct but there is no infarct described on the CT report and his pain has not evolved as expected. Typically this far out, infarcted tissue would not continue to cause pain. I did also explain that it is not impossible for patient to have incidentally found/asymptomatic PE and that it is not impossible (though unlikely) to have a negative D dimer at the time of PE finding. Also discussed it is a bit suspicious but not impossible that his PE had resolved by the time of his 01/25/22 CTA Chest. We know CT are not able to clarify chronicity of PE so perhaps the CT finding was an old/incidental PE.Ultimately, I asked him to continue Xarelto for the time being and I plan to call to discuss his scans directly with a Radiologist Negriat. If this is truly a PE, I agree it would likely be unprovoked as I do not identify a strong enough trigger within 3 months of symptom onset. I doubt hereditary thrombophilia as his father's phlebitis sounds provoked in the setting of a hospitalization. I do hesitate to commit him to extermination supervisor secondary prevention with anticoagulation (typically recommended to men > 50 with an unprovoked PE) with the current information I have at this time. Jose Manuel is UTD on age appropriate cancer screening aside from a colonoscopy which is due at this time but on hold while he is on Xarelto. He also states hewould like to pursue further neck injections but these are also on hold while on anticoagulation. Jose Manuel is quite anxious about his ongoing bilateral rib pain for which I do not have a specific explanation. He is requested further evaluation for multiple myeloma based on a history of this in his father (with similar symptoms). I have reviewed the CXR and CT scans which do not identify any bony lesions. I have also reviewed his CBCd which is not concerning for multiple myeloma. I do not have results of a UA performed by his PCP 01/24/23 but per notes it was WNL. I think there is a low likelihood of multiple myeloma but since this is not my specific area of expertise, I will discuss his case further with the Hematology team to see if there is additional action needed. I do wonder if there is a referred cervical component- he did have a platelet injection into his neck about 10 days beforesymptom onset. I will arrange a short term follow up with Jose Manuel to review next steps. I will keep him as updated as possible in the process of review his case with Radiology and the Hematology team. Plan: - continue Xarelto 20 mg once daily for now - will contact Radiology at [facility] to discuss 01/18/22 CTA Chest - will discuss bilateral rib pain and multiple myeloma work up with my Hematology colleagues - Reviewed the signs and symptoms of DVT and PE. - Reviewed the importance of staying active, hydrated. Avoid NSAIDs, ASA products while on AC. Any head trauma warrants medical eval. - Follow up: 2 weeks I appreciate the opportunity to participate in this patient's care. Please let me know if you have any questions or concerns. I can be reached at . Thank you. Flory Fried PA-C I spent a total of 65 minutes on the date of this encounter meeting with the patient and reviewing documentation/coordinating care as described in the above note. ADDENDUM 04/15/21: Paged Radiology at [facility]- no response. ADDENDUM 04/16/21: Paged Radiology at [facility] and reviewed case with Dr. Love Lagunas. She reviewed the 01/18/22 CTA Chest during our phone call. Upon her investigation, she stated there appeared to be linear artifact that mimicked the appearance of a PE but extends beyond the end/edge of the pulmonary artery so she would favor artifact over PE. Associate Professor Of Violin asked her to please addend the report with her input and she agrees to do so. Contacted Jose Manuel to provide update so far. He can discontinue Xarelto. Will discuss will discuss bilateral rib pain and multiple myeloma work up with my Hematology colleagues at our weekly conference. Flory Fried PA-C 04/16/2022 18:55 cc: Flor Herman documented in this encounter Plan of Treatment Not on file documented as of this encounter Visit Diagnoses Diagnosis Pulmonary embolism without acute cor pulmonale, unspecified chronicity, unspecified pulmonary embolism type ([facility])- Primary documented in this encounter Historical Medications * This list may reflect changes made after this encounter. Medication Sig Dispensed Refills Start Date End Date UNABLE TO FIND 1 Tablet 3 times daily. Med Name: Jenny Morris simvastatin (ZOCOR) 10 mg tablet Take 20 mg by mouth every evening. rivaroxaban (XARELTO ORAL) Take 20 mg by mouth daily. 04/25/2022 added in this encounter Care Teams City Driver Relationship Specialty Start Date End Date Flor St FNP PCP - General 09/16/19 documented as of this encounter
--- OUTSIDE RECORDS SUMMARY | 2023-09-30 18:13 | XMS_ITS | Encounter Summary ---
Author Organization [facility] Address [address] [place] [address] Care Team Providers Care Table And Desk Finisher Name Role Phone NeetujennieanicetoFlor PATRIZIA Primary Care Provider [phone] Encounter Details Date Type Department Care Team (Late st Contact Info) Description 12/20/2019 Lab Requisition [facility] Pathology & Laboratory Medicine - [address] [address] Outr Resulting Lab, Provider Social History Tobacco Use Types Packs/Day Years [...] on file documented as of this encounter Plan of Treatment Not on file documented as of this encounter Procedures Procedure Name Priority Date/Time Associated Diagnosis Comments RHEUMATOID FACTOR Routine 12/20/2019 11: 53 EDT documented in this encounter Results * RHEUMATOID FACTOR (12/20/2019 11:53 EDT) Rheumatoid Factor <8.6 <12.0 IU/mL 12/20/2019 22:14 EDT [facility] Blood VENOUS BLOOD / Unknown 12/20/2019 11:53 EDT 12/20/2019 22:00 EDT Provider Outr Resulting Lab CHEMISTRY & BLOOD GAS ORDERABLES [facility] [address] [place] [address] documented in this encounter Visit Diagnoses Not on filedocumented in this encounter Care Teams Table And Desk Finisher Relationship Specialty Start Date End Date Flor St FNP PCP - General 09/16/19 documented as of this encounter
--- OUTSIDE RECORDS SUMMARY | 2023-09-30 18:13 | XMS_ITS | Encounter Summary ---
Author Organization [facility] Address [address] [place] [address] Care Team Providers Care Molasses Feed Mixer Name Role Phone Flor St Primary Care Provider [phone] Reason for Visit * Reason Comments Sore Throat shooting throat and neck pain, ear pain, loss of voice, clears throat a lot, red eyes. has been going on since may 26 with a sore throat. then it progressed from there. no nasel discharge. seems more the right side. the cetirizine seems to help with the night time stuffiness. has been on the omeprazole since august 29, with some improvment. * Referral (Routine) - Closed Specialty Diagnoses / Procedures Referred By Sylvseter saldana Referred To Contact Otolaryngology Diagnoses Acute rhinitis Flor St FNP [address], [address] [place] [address] Jose Manuel Christine MD [address] [place] [id number] Referral ID Status Reason Start Date Expiration Date Visits Re quested Visits Authorized [id number] Closed 1 1 Encounter Details Date Type Department Care Team (Late st Contact Info) Description 09/16/2019 8:30 EDT Office Visit [facility] ENT [address] [address] Jose Manuel Christine MD [address] [place] [id number] LPRD (laryngopharyngeal reflux disease) (Primary Dx) Social History Tobacco Use Types Packs/Day Years Used Date Smoking Tobacco: Never Smokeless Tobacco: Never Alcohol Use Standard Drinks/Week Comments Yes 3 (1 standard drink = 0.6 oz pur e alcohol) Sex and Gender Information Value Date Recorded Sex Assigned at Not on file Gender Identity Male 09/13/2019 10:34 EDT Sexual Orientation Not on file COVID-19 Exposure Response Date Recorded In the last month, have you been in contact with someone who was confirmed or suspected to have Coronavirus / COVID-19? No / Unsure 09/13/2019 10:24 EDT documented as of this encounter Last Filed Vital Signs Vital Sign Reading Time Taken Comments Blood Pressure 114/73 09/16/2019826 EDT Pulse 75 09/16/2019826 EDT Temperature - - Respiratory Rate - - Oxygen Saturation - - Inhaled Oxygen Concentration - - Weight 83 kg (183 lb) 09/16/2019826 EDT Height 182.9 cm (6') 09/16/2019826 EDT Body Mass Index 24.82 09/16/2019826 EDT documented in this encounter Progress Notes * Jose Manuel Christine MD - 09/16/[address] This is a consult from Flor St for evaluation of sore throat. History of Present Illness: This is a 69-year-old male with a history of frequent throat clearing, hoarseness, and a foreign body sensation since May. Symptoms are more on the right side. He also had a history of allergy and rhinitis, improved with antihistamine and steroid nasal spray. He was recently started on omeprazole on August 29, and has noticed improvement of symptoms. Symptoms are currently of mild severity, intermittent. No known modifying factors or other associated signs or symptoms. Past Medical History: Current medications include cetirizine, omeprazole, and CoQ10. He has drug allergies to LEVOFLOXACIN and SULFA. His medical illness are significant for heartburn. Prior surgeries include salivary surgery and knee surgery. Family history is significant for cancer and thyroid disease. Social History: The patient is a nonsmoker. Review of Systems: Significant for hearing loss, tinnitus, hoarseness, sore throat, history of skincancer. Otherwise, negative for a complete review of all systems. Physical Examination: General: Well-developed, well-nourished, alert, oriented, cooperative adult male in no acute distress. Normal voice. Vital Signs: Height 72 inches, weight 183, blood pressure 114/73, pulse 75. Pain level of 2. The face is normal without lesions. Facial strength is symmetric. Eye exam is normal. Ears: External ears are normal, canals are clear, tympanic membranes are normal. Hearing is intact. Nose: Nasal dorsum is midline, the airway is patent. Oral cavity and posterior pharynx are clear. Neck: No pathologic lymphadenopathy. Trachea is midline. Thyroid is normal. Chest: Clear to auscultation. Heart: Regular rate and rhythm. Procedure: Fiberoptic laryngoscopy was performed with topical anesthesia. No evidence of nasal polyps or purulence. Both middle meati are clear. The nasopharynx is clear. The base of tongue, epiglottis, vallecula, piriform sinuses, false vocal cords, and true vocal cords were within normal limits. T here is mild posterior laryngeal edema mainly of the postcricoid area. No cysts, polyps, nodules, or tumor. Impression: Sore throat, foreign body sensation, throat clearing, posterior laryngeal edema consistent with laryngopharyngeal reflux disease. Plan: LPR instructions were given to the patient and discussed in detail. Treatment may include a proton-pump inhibitor and H2 angie therapy, as well as dietary and behavioral modifications. The patient understands and agrees with the current plan. cc: Flor St documented in this encounter Plan of Treatment Not on file documented as of this encounter Visit Diagnoses Diagnosis LPRD (laryngopharyngeal reflux disease)- Primary Other diseases of larynx documented in this encounter Historical Medications * This list may reflect changes made after this encounter. Medication Sig Dispensed Refills Start Date End Date ubidecarenone (COQ-10 ORAL) Take 200 mg by mouth daily. Cetirizine 10 mg capsule Take 10 mg by mouth daily. omeprazole (PRILOSEC) 20 mg capsule Take 40 mg by mouth daily. added in this encounter Care Teams Molasses Feed Mixer Relationship Specialty Start Date End Date Flor St FNP PCP - General 09/16/19 documented as of this encounter
--- OUTSIDE RECORDS SUMMARY | 2023-09-30 18:13 | XMS_ITS | Encounter Summary ---
Author Organization [facility] Address [address] [place] [address] Care Team Providers Care Metal Precision Machine Assembler Name Role Phone Alma Rosa Flor ACHARYA Primary Care Provider [phone] Encounter Details Date Type Department Care Team (Late st Contact Info) Description 01/07/2022 Lab Requisition [facility] Pathology & Laboratory Medicine - [address] [address] Outr Resulting Lab, Provider Social History Tobacco [...] serious difficulty concentrating, remembering, or making decisions? Yes 12/21/2020 documented as of this encounter Plan of Treatment Not on file documented as of this encounter Procedures Procedure Name Priority Date/Time Associated Diagnosis Comments LYME AB Routine 01/07/2022 11:35 EST HIGH SENSITIVITY C-REACTIVE PROTEIN (CARDIOVASCULAR DISEASE) Routine 01/07/2022 11:35 EST documented in this encounter Results * LYME AB (01/07/2022 11:35 EST) Lyme Ab Negative Negative 01/08/2022 10:22 EST [facility] Blood VENOUS BLOOD / Unknown 01/07/2022 11:35 EST 01/07/2022 21:15 EST Provider Outr Resulting Lab IMMUNOLOGY A ND SEROLOGY ORDERABLES Performing Organization Address [facility] de Phone Number [facility] [address] [place] [address] * HIGH SENSITIVITY C-REACTIVE PROTEIN (CARDIOVASCULAR DISEASE) (01/07/2022 11:35 EST) Pathologist [facility] High Sensitivity CRP <0.34 See Note mg/L 01/07/2022 21:39 EST [facility] Comment: Reference Range: ??Low Risk: ? <1.0 mg/L ??Average Risk: ?? 1.0 - 3.0 mg/L ??High Risk: ?>3.0 mg/L ??Indeterminate*: >10.0 mg/L ??*May be an indication of another source of inflammation or infection Blood VENOUS BLOOD / Unknown 01/07/2022 11:35 EST 01/07/2022 21:15 EST Provider Outr Resulting Lab CHEMISTRY & BLOOD GAS ORDERABLES Performing Organization Address [facility] Co de Phone Number [facility] [address] [place] [address] documented in this encounter Visit Diagnoses Not on filedocumented in this encounter Care Teams Metal Precision Machine Assembler Relationship Specialty Start Date End Date Flor St FNP PCP - General 09/16/19 documented as of this encounter
--- OUTSIDE RECORDS SUMMARY | 2023-09-30 18:13 | XMS_ITS | Encounter Summary ---
Author Organization [facility] Address [address] [place] [address] Care Team Providers Care Resident Service Coordinator Name Role Phone Alma Rosa Flor ACHARYA Primary Care Provider [phone] Reason for Visit * (Routine/Next Available) - Receiving Office to Obtain Authorization Specialty Diagnoses / Procedures Referred By Sylvester t Referred To Contact Procedures CT OUTSIDE IMAGES CHEST Imaging, External Referral ID Status Reason Start Date Expiration Date Visits Requested Visits Authorized [id number] Receiving Office to Obtain Authorization 01/28/2022 1 1 Encounter Details Date Type Department Care Team (Latest Contact Info) Description 01/25/2022 - 01/25/2022 23:59 EST Hospital Encounter [facility] Secondary Reads [place] Discharge Disposition: Home [...] Yes 12/21/2020 documented as of this encounter Medications at Time of Discharge Medication Sig Dispensed Refills Start Date End Date Cetirizine 10 mg capsule Take 10 mg by mouth daily. ibuprofen (MOTRIN) 200 mg tablet Take 200 mg by mouth every 6 hours as needed for Pain. LORazepam (ATIVAN) 0.5 mg tablet Take 1 mg by mouth at bedtime as needed. omeprazole (PRILOSEC) 20 mg capsule Take 40 mg by mouth daily. ubidecarenone (COQ-10 ORAL) Take 200 mg by mouth daily. documented as of this encounter Discharge Disposition Disposition Code Departure Means Destination Home or Self Care documented in this encounter Plan of Treatment Not on file documented as of this encounter Procedures Procedure Name Priority Date/Time Associated Diagnosis Comments CT OUTSIDE IMAGES CHEST Routine 01/25/2022 16:09 EST documented in this encounter Results * CT OUTSIDE IMAGES CHEST (01/25/2022 16:09 EST) Narrative 01/28/2022 16:09 EST This is a non-reportable exam. External Imaging IMG OTHER IMAGING OR DERABLES documented in this encounter Visit Diagnoses Not on filedocumented in this encounter Care Teams Resident Service Coordinator Relationship Specialty Start Date End Date Flor St FNP PCP - General 09/16/19 documented as of this encounter
--- OUTSIDE RECORDS SUMMARY | 2023-09-30 18:13 | XMS_ITS | Encounter Summary ---
Author Organization [facility] Address [address] [place] [address] Care Team Providers Care Lapel Baster Name Role Phone NeetujennieanicetoFlor PATRIZIA Primary Care Provider [phone] Encounter Details Date Type Department Care Team (Late st Contact Info) Description 12/20/2019 Lab Requisition [facility] Pathology & Laboratory Medicine - [address] [address] Outr Resulting Lab, Provider Social History Tobacco [...] Procedure Name Priority Date/Time Associated Diagnosis Comments VITAMIN B12 Routine 12/20/2019 11:53 EDT documented in this encounter Results * VITAMIN B12 (12/20/2019 11:53 EDT) Vitamin B12 490 211 - 911 pg/mL 12/20/2019 23:16 EDT [facility] Blood VENOUS BLOOD / Unknown 12/20/2019 11:53 EDT 12/20/2019 22:01 EDT Provider Outr Resulting Lab CHEMISTRY & BLOOD GAS ORDERABLES [facility] [address] [place] [address] documented in this encounter Visit Diagnoses Not on filedocumented in this encounter Care Teams Lapel Baster Relationship Specialty Start Date End Date Flor St FNP PCP - General 09/16/19 documented as of this encounter
--- OUTSIDE RECORDS SUMMARY | 2023-09-30 18:13 | XMS_ITS | Encounter Summary ---
Author Organization [facility] Address [address] [place] [address] Care Team Providers Care Configuration Technician Name Role Phone NeetujennieanicetoNancyangelica ACHARYA Primary Care Provider Encounter Details Date Type Department Care Team (Late st Contact Info) Description 04/26/2022 13:45 EST Phlebotomy Only [facility] 2 Phlebotomy [address] [place], [place] [id number] [place], Acc Phlebotomy Rib pain; Family history of multiple myeloma Social History [...] No 04/15/2022 documented as of this encounter Plan of Treatment Not on file documented as of this encounter Procedures Procedure Name Priority Date/Time Associated Diagnosis Comments SPEP WITH IMMUNOTYPING PERFORMABLE Routine 04/26/2022 14:00 EST Rib pain Family history of multiple myeloma MONOCLONAL PROTEIN DIAGNOSTIC PANEL, SERUM Routine 04/26/2022 14:00 EST Rib pain Family history of multiple myeloma SERUM FREE LIGHT CHAINS Routine 04/26/2022 14:00 EST Rib pain Family history of multiple myeloma PROTEIN, TOTAL Routine 04/26/2022 14:00 EST Rib pain Family history of multiple myeloma documented in this encounter Results * (ABNORMAL) SERUM FREE LIGHT CHAINS (04/26/2022 14:00 EST) [place] Free Lt Chain 1.99(H) 0.33 - 1.94 mg/dL 04/29/2022 10:53 [facility] [place] Free Lt Chain 1.50 0.57 - 2.63 mg/dL 04/29/2022 10:53 [facility] [place]/Lambda Ratio 1.33 0.26 - 1.65 04/29/2022 10:53 [facility] Blood VENOUS BLOOD / Unknown Venipuncture / Unknown 04/26/2022 14:00 EST 04/26/2022 15:04 EST Flory Fried PA-C CHEMISTRY & BLOO D GAS ORDERABLES Performing Organization Address City/State/[facility] Co de Phone Number [facility] [address] [place] [address] * SPEP WITH IMMUNOTYPING PERFORMABLE (04/26/2022 14:00 EST) Albumin % 62.4 55.8 - 66.1 % 04/29/2022 13:40 [facility] Albumin g/dL 4.3 3.6 - 5.2 g/dL 04/29/2022 13:40 [facility] Alpha-1 % 3.9 2.9 - 4.9 % 04/29/2022 13:40 [facility] Alpha-1 g/dL 0.30 0.15 - 0.40 g/dL 04/29/2022 13:40 [facility] Alpha-2 % 9.6 7.1 - 11.8 % 04/29/2022 13:40 [facility] Alpha-2 g/dL 0.70 0.50 - 1.00 g/dL 04/29/2022 13:40 [facility] Beta % 10.7 8.4 - 13.1 % 04/29/2022 13:40 [facility] Beta g/dL 0.70 0.60 - 1.20 g/dL 04/29/2022 13:40 [facility] Gamma % 13.4 11.1 - 18.8 % 04/29/2022 13:40 [facility] Gamma g/dL 0.90 0.60 - 1.60 g/dL 04/29/2022 13:40 [facility] SPEP Comment No apparent monoclonal protein seen on serum electrophoresis 04/29/2022 13:40 [facility] Comment:See scanned/suppleme ntary report. Immunotyping , Serum Current Interpretation: Negative for monoclonal immunoglobulins. Reviewed by: Jerry Albarran MD 04/29/2022 1223 04/29/2022 13:40 [facility] Total Protein 6.9 6.3 - 8.2 g/dL 04/29/2022 13:40 [facility] Blood VENOUS BLOOD / Unknown Venipuncture / Unknown 04/26/2022 14:00 EST 04/26/2022 15:04 EST Flory Fried PA-C CHEMISTRY & BLOO D GAS ORDERABLES [facility] [address] [place] [address] * PROTEIN, TOTAL (04/26/2022 14:00 EST) Blood VENOUS BLOOD / Unknown Venipuncture / Unknown 04/26/2022 14:00 EST 04/26/2022 15:04 EST Flory Fried PA-C CHEMISTRY & BLOO D GAS ORDERABLES [facility] [address] [place] [address] documented in this encounter Visit Diagnoses Diagnosis Rib pain Chest pain, unspecified Family history of multiple myeloma Family history of other lymphatic and hematopoietic neoplasms documented in this encounter Care Teams Configuration Technician Relationship Specialty Start Date End Date Flor tS FNP PCP - General 09/16/19 documented as of this encounter
--- OUTSIDE RECORDS SUMMARY | 2023-09-30 18:13 | XMS_ITS ---
Author Organization Unknown Address [address] [place] [phone] Phone Care Team Providers Care Curb Setter Helper Name Role Phone REMINGTON BRENDEN Attending Unavailable Results D-DIMER - Collect Date/Time: 08/02/2022 10:25 [facility] ID: [id number] - [id number] [address] [place], [place], [address] LOINC: 54604-4 Test Value Unit Reference Range Code Code System Flag D-DIMER 0.48 mg/L L=0.19 H=0.50 22466-8 LOINC Social History Type Status Start Date End Date Code Code Syst em Smoking History Never smoker (Never Smoked) 487796034 SNOMED CT Sex Male Medications Medication Start Date End Date Route Frequency Dose Code Code System Medication Instructions Home Meds Xarelto 15MG Oral Tablet 01/18/2022 Unknown ORAL TWICE A DAY 1 TABLET 0731586 RxNorm TAKE 1 TABLET ORAL TWICE A DAY Xarelto 20MG Oral Tablet 01/18/2022 Unknown ORAL DAILY 1 TABLET 1504860 RxNorm TAKE 1 TABLET ORAL DAILY Hospital [...] Code Code Sys tem Localized edema 08/02/2022 [id number] SNOMED-CT Personal Care Team Section Performer Name Performer Role Active Date Inactive Da te
--- OUTSIDE RECORDS SUMMARY | 2023-09-30 18:13 | XMS_ITS | Encounter Summary ---
Author Organization [facility] Address [address] [place] [address] Care Team Providers Care Esthetician Spa Name Role Phone Flor St Primary Care Provider [phone] Reason for Visit * Reason Comments Pain * Consult (Routine) - Closed Specialty Diagnoses / Procedures Referred By Sylvester saldana Referred To Contact Orthopedic Surgery Diagnoses Neck pain Flor St FNP [address], [address] [place] [address] [facility] Ortho Spine [address] [facility] [place] [address] Referral ID Status Reason Start Date Expiration Date Visits Re quested Visits Authorized [id number] Closed 1 1 Encounter Details Date Type Department Care Team (Late st Contact Info) Description 12/21/2020 11:00 EDT Office Visit [facility] Program - [address] [place] [address] Nata Monroe PA-C [address] [facility] [place] [address] Neck pain (Primary Dx) Social History Tobacco Use Types [...] Sign Reading Time Taken Comments Blood Pressure - - Pulse - - Temperature - - Respiratory Rate - - Oxygen Saturation - - Inhaled Oxygen Concentration - - Weight 80.7 kg (178 lb) 12/21/2020 1108 EDT Height 182.9 cm (6') 12/21/2020 1108 EDT Body Mass Index 24.14 12/21/2020 1108 EDT documented in this encounter Functional Status Functional [...] Yes 12/21/2020 documented as of this encounter Progress Notes * Nata Monroe PA-C - 12/21/2020 1100 EDT Mr. Robbins is a 70 y.o. pleasant male who presents to the clinic today, 12/21/2020, with 1. 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 ONSET: This is a chronic issue that has been present since early 80s. Initially, the symptoms started after a skiing accident. Several times after the accident symptoms went away and started again inlate 90s. Has worsened over the last year. Symptoms wax and wane, but they are present almost everyday. However, for the last 2 weeks he has been feeling much better. ALLEVIATING FACTORS: Alleviation is random. AGGRAVATING FACTORS: Lifting, extending his neck, laying down. PAIN: 08/03. CONSERVATIVE TX: 1. Physical Therapy: Yes, did not help. 2. CHIRO: Yes, minor relief. 3. Steroid injections: NONE. 4. Medications: Advil -minimal relief. SOCIAL: 1. SMOKING: Never. 2. 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 3. Patient lives with his . Review of Systems Constitutional: Positive for activity change. Negative for unexpected weight change. Eyes: Negative for visual disturbance. Respiratory: Negative for chest tightness. Gastrointestinal: Negative for constipation. Genitourinary: Negative for difficulty urinating. Musculoskeletal: Positive for neck pain. Negative for low back pain. Skin: Negative for rash. Neurological: negative for numbness. Psychiatric/Behavioral: Negative for agitation and behavioral problems. Physical Exam Constitutional: Patient is oriented to person, place, and time, and appears well-developed and well-nourished. Eyes: EOM are normal. Pupils are equal, round, and reactive to light. Cardiovascular: Normal rate. Pulmonary/Chest: Effort normal and breath sounds normal. Neurological: Patient is alert and oriented to person, place, and time. Skin: Skin is warm and dry. No rash noted. Psychiatric: Patient has a normal mood and affect, and behavior is normal. Family and Social History: Reviewed. Neck Exam from initial visit in 12/21/2020: RASHES AND DAMIAN: NEG. FROM: TENDERNESS ON PALPATION: NEG. STRENGTH: 5/5. REFLEXES: 2/4. SENSATION:Intact. SPURLING'S: NEG. MOORE: NEG. RADIAL PULSE: 2/2. TINNEL: NEG. PHALEN: NEG. ULNAR COMPRESSION: NEG. Today, 12/21/2020, I independently reviewed the following radiographs: Cervical Plain radiographs (AP/Lat/Obliques, odontoid): 1. Mild loss of cervical lordosis 2. Mild facet arthropathy of the cervical spine 3. Disc heights are relatively well-maintained 4. No fractures identified Assessment: 70 y.o. male with 1. ASSISTANT CONTROLLER most likely from degenerative disc and facet disease although myofascial pain secondary to loss of cervical lordosis is also plausible. Headaches could be secondary to her occipital neuralgia. He has agreed to the following plan. Plan: 1. Order C2-C5 B/L MBB. 2. Continue activity as tolerated. 3. Continue with in-home exercise program. 4. Return to clinic post MBB versus RFA. 5. If no relief from MBB, proceed with cervical MRI. CC: Dr. Sunny Cavazos was the attending physician available in the clinic today if needed. A consultation was not required. documented in this encounter Plan of Treatment Not on file documented as of this encounter Visit Diagnoses Diagnosis Neck pain- Primary Cervicalgia documented in this encounter Historical Medications * This list may reflect changes made after this encounter. Medication Sig Dispensed Refills Start Date End Date ibuprofen (MOTRIN) 200 mg tablet Take 200 mg by mouth every 6 hours as needed for Pain. LORazepam (ATIVAN) 0.5 mg tablet Take 1 mg by mouth at bedtime as needed. added in this encounter Care Teams Esthetician Spa Relationship Specialty Start Date End Date Flor St FNP PCP - General 09/16/19 documented as of this encounter
--- OUTSIDE RECORDS SUMMARY | 2023-09-30 18:13 | XMS_ITS | Encounter Summary ---
Author Organization [facility] Address [address] [place] [address] Care Team Providers Care County Attorney Name Role Phone KiarajenniferanicetoFlor PATRIZIA Primary Care Provider Encounter Details Date Type Department Care Team (Late st Contact Info) Description 12/07/[address] [facility] Pathology & Laboratory Medicine - [address] [address] Outr Resulting Lab, Provider Social History Tobacco [...] Date/Time Associated Diagnosis Comments LYME AB Routine 12/06/2019 10:35 EDT documented in this encounter Results * LYME AB (12/06/2019 10:35 EDT) Lyme Ab Negative Negative 12/08/2019 10:02 EDT [facility] Comment:New 3rd generation a ssay in use 08/04/2019 Blood VENOUS BLOOD / Unknown 12/06/2019 10:35 EDT 12/07/2019 16:46 EDT Provider Outr Resulting Lab IMMUNOLOGY A ND SEROLOGY ORDERABLES [facility] [address] [place] [address] documented in this encounter Visit Diagnoses Not on filedocumented in this encounter Care Teams County Attorney Relationship Specialty Start Date End Date Folr St FNP PCP - General 09/16/19 documented as of this encounter
--- OUTSIDE RECORDS SUMMARY | 2023-09-30 18:13 | XMS_ITS ---
Author Organization Unknown Address [address] [place] [phone] Phone Care Team Providers Care Fish Cutter Name Role Phone VINOD Barrera Attending Unavailable RANGEL DA SILVA Primary Unavailable Social History Type Status Start Date End Date Code Code Syst em Smoking History Never smoker (Never Smoked) [id number] SNOMED CT Sex Male Medications Medication Start Date End Date Route Frequency Dose Code Code System Medication Instructions Home Meds Xarelto 15MG Oral Tablet 01/18/2022 Unknown ORAL TWICE A DAY 1 TABLET 1304849 RxNorm TAKE 1 TABLET ORAL TWICE A DAY Xarelto 20MG Oral Tablet 01/18/2022 Unknown ORAL DAILY 1 TABLET 6771206 RxNorm TAKE 1 TABLET ORAL DAILY Hospital Discharge Instructions Should you have any questions prior to discharge, please contact a member of your healthcare team. If you have left the hospital and have any questions, please contact your primary care physician. Reason For Referral No Data Found Procedures Procedure Name Date Status Code Code Systangelica m Colorectal Cancer Screening; Colonoscopy On Individual [...]
--- OUTSIDE RECORDS SUMMARY | 2023-09-30 18:13 | XMS_ITS | Encounter Summary ---
Author Organization [facility] Address [address] [place] [address] Care Team Providers Care Meat Supervisor Name Role Phone NeetujennieanicetoFlor PATRIZIA Primary Care Provider [phone] Encounter Details Date Type Department Care Team (Late st Contact Info) Description 12/20/2019 Lab Requisition [facility] Pathology & Laboratory Medicine - [facility] [address] [place] [address] Outr Resulting Lab, Provider Social History Tobacco [...] Procedure Name Priority Date/Time Associated Diagnosis Comments ANTI NUCLEAR AB (ZAHIDA), IFA Routine 12/20/2019 11:53 EDT documented in this encounter Results * ANTI NUCLEAR AB (ZAHIDA), IFA (12/20/2019 11:53 EDT) ZAHIDA Interpretation Negative Negative 2019 16:55 EDT [facility] Blood VENOUS BLOOD / Unknown 12/20/2019 11:53 EDT 12/20/2019 22:01 EDT Narrative [facility] - 12/21/2019 16:55 EDT Results were obtained with the shenzhoufuVA NOVA Lite HEp-2 ZAHIDA Kit by indirect immunofluorescence. Provider Outr Resulting Lab IMMUNOLOGY A ND SEROLOGY ORDERABLES Performing Organization Address City/State/[facility] Co de Phone Number [facility] [address] [place] [address] documented in this encounter Visit Diagnoses Not on filedocumented in this encounter Care Teams Meat Supervisor Relationship Specialty Start Date End Date Flor St FNP PCP - General 09/16/19 documented as of this encounter
--- OUTSIDE RECORDS SUMMARY | 2023-09-30 18:13 | XMS_ITS | Encounter Summary ---
Author Organization [facility] Address [address] [place] [address] Care Team Providers Care Production Maintenance Technician Name Role Phone Alma Rosa Flro ACHARYA Primary Care Provider [phone] Encounter Details Date Type Department Care Team (Late st Contact Info) Description 08/29/[address] [facility] Pathology & Laboratory Medicine - [address] [address] Outr Resulting Lab, Provider Social History Tobacco [...] PSA TOTAL, DIAGNOSTIC Routine 08/29/2023 10:40 EDT documented in this encounter Results * PSA TOTAL, DIAGNOSTIC (08/29/2023 10:40 EDT) PSA 1.3 <=6.5 ng/mL 08/29/2023 23:12 EDT [facility] Blood VENOUS BLOOD / Unknown 08/29/2023 10:40 EDT 08/29/2023 21:41 EDT Narrative [facility] - 08/29/2023 23:12 EDT NOTE: Serum PSA concentration should not be interpreted as absolute evidence for the presence or absence of malignant disease. Assayed on Siemens AppSociallyaur XPT using chemiluminescent technology.??Values obtained by using different assay methods cannot be used interchangeably. Provider Outr Resulting Lab CHEMISTRY & BLOOD GAS ORDERABLES [facility] [address] [place] [phone] documented in this encounter Visit Diagnoses Not on filedocumented in this encounter Care Teams Production Maintenance Technician Relationship Specialty Start Date End Date Flor St FNP PCP - General 09/16/19 documented as of this encounter
--- OUTSIDE RECORDS SUMMARY | 2023-09-30 18:13 | XMS_ITS ---
Author Organization Unknown Address [address] [place] [phone] Phone Care Team Providers Care Farm Planner Name Role Phone RANGEL DA SILVA Attending Unavailable Results US ABD LIMITED ONE ORGAN - C ompleted: 02/07/2022 09:55 LOINC: [facility] [place], [place] [address] PACS PLATE PUT IN WORKER REPORT Patient Name: KIM MCKINLEY MRN: Sex: : Age: [id number] M [id number] Account: Accession: Admit: StayType: [id number] 02/07/2022 O/P Ordered: Order ID: Submitted: Ordering Provider: 02/07/2022 09:18 [id number] [employer] REKHA MULTANI Completed: Technologist: Resulted: 02/07/2022 09:55 [...] em Smoking History Never smoker (Never Smoked) [id number] SNOMED CT Sex Male Medications Medication Start Date End Date Route Frequency Dose Code Code System Medication Instructions Home Meds Xarelto 15MG Oral Tablet 01/18/2022 Unknown ORAL TWICE A DAY 1 TABLET 7424288 RxNorm TAKE 1 TABLET ORAL TWICE A DAY Xarelto 20MG Oral Tablet 01/18/2022 Unknown ORAL DAILY 1 TABLET 7887117 RxNorm TAKE 1 TABLET ORAL DAILY Hospital [...]
--- OUTSIDE RECORDS SUMMARY | 2023-09-30 18:13 | XMS_ITS | Encounter Summary ---
Author Organization [facility] Address [address] [place] [address] Care Team Providers Care Cardboard Cutter Name Role Phone Alma Rosa Flor ACHARYA Primary Care Provider [phone] Reason for Visit * (Routine/Next Available) - Receiving Office to Obtain Authorization Specialty Diagnoses / Procedures Referred By Sylvester t Referred To Contact Procedures XR OUTSIDE IMAGES CHEST Imaging, External Referral ID Status Reason Start Date Expiration Date Visits Requested Visits Authorized [id number] Receiving Office to Obtain Authorization 01/28/2022 1 1 Encounter Details Date Type Department Care Team (Latest Contact Info) Description 12/18/2021 - 12/18/2021 23:59 EDT Hospital Encounter [facility] Secondary Reads [place] Discharge Disposition: Home or [...] Date/Time Associated Diagnosis Comments XR OUTSIDE IMAGES CHEST Routine 12/18/2021 16:09 EDT documented in this encounter Results * XR OUTSIDE IMAGES CHEST (12/18/2021 16:09 EDT) Narrative 01/28/2022 16:09 EST This is a non-reportable exam. External Imaging IMG OTHER IMAGING OR DERABLES documented in this encounter Visit Diagnoses Not on filedocumented in this encounter Care Teams Cardboard Cutter Relationship Specialty Start Date End Date Flor St FNP PCP - General 09/16/19 documented as of this encounter
--- OUTSIDE RECORDS SUMMARY | 2023-09-30 18:13 | XMS_ITS | Encounter Summary ---
Author Organization [facility] Address [address] [place] [address] Care Team Providers Care Clinical Product Manager Name Role Phone Flor St Primary Care Provider Reason for Visit * (Routine) - Receiving Office to Obtain Authorization Specialty Diagnoses / Procedures Referred By Sylvester t Referred To Contact Procedures CT OUTSIDE IMAGES NEURO Unknown, Provider, Referral ID Status Reason Start Date Expiration Date Visits Requested Visits Authorized [id number] Receiving Office to Obtain Authorization 07/25/2020 1 1 Encounter Details Date Type Department Care Team (Latest Contact Info) Description 01/06/2020 - 01/06/2020 23:59 EST Hospital Encounter [facility] Secondary Reads [place] Discharge Disposition: Home [...] Date/Time Associated Diagnosis Comments CT OUTSIDE IMAGES NEURO Routine 07/25/2020 16:14 EDT documented in this encounter Results * CT OUTSIDE IMAGES NEURO (07/25/2020 16:14 EDT) Narrative 07/25/2020 16:14 EDT This is a non-reportable exam. Provider Unknown MD [facility] OTHER IMAGING OR DERABLES documented in this encounter Visit Diagnoses Not on filedocumented in this encounter Care Teams Clinical Product Manager Relationship Specialty Start Date End Date Flor St FNP PCP - General 09/16/19 documented as of this encounter
--- OUTSIDE RECORDS SUMMARY | 2023-09-30 18:13 | XMS_ITS | Continuity of Care Document ---
Author Organization [facility] Address [address] [place] [phone] Phone Care Team Providers Care Serging Machine Operator Automatic Name Role Phone [place] Joseph Unavailable [...] Audio Copay Prepayment Office/Outpt New - Low [facility] - Time Bench Audio Advance Directives Directive Yes / No Effective Date File Name No Information Encounters Encounter Description Practice Location Reason(s) For Visit Diagnoses Date Provider Providers Copied on Encounter Office/Outpt New - Low MDM - Time [facility], [address] [place], [place] [address]uite [address] [place] [address], [id number], [place] tel:[phone] [facility] abnormal response to sounds (chief complaint) dizziness (chief complaint) throat sensation (chief complaint) Sensorineural hearing loss (SNHL) of left ear with restricted hearing of right earDizzinessL aryngopharyng eal reflux (LPR) 2 [place]. [address] [facility], [address] [place] [address], [id number], [place]. tel:[phone] Family History Family Member Type Diagnosis Age At Onset Problem (finding) Family history of malignant neoplasm of thyroid Problem (finding) Family history of Heari ng disorder Problem (finding) Family history of Renal disease Problem (finding) Family history of Thyro id disorder Payers Payer name Insurance type Covered green party ID Authoriza tion(s) Medicare - Part B [employer] [id number] [facility] [id number] Social History Type Description Quantity Date Captured [...] neck for pain issues. His PCP in [place] ordered an MRI which he has had [...] He was diagnosed with laryngopharyngeal reflux in [facility] and has been taking omeprazole daily for [...] neck for pain issues. His PCP in [place] ordered an MRI which he has had [...]
--- OUTSIDE RECORDS SUMMARY | 2023-09-30 18:13 | XMS_ITS | Encounter Summary ---
Author Organization [facility] Address [address] [place] [address] Care Team Providers Care Dope Pourer Name Role Phone Alma Rosa Flor ACHARYA Primary Care Provider Encounter Details Date Type Department Care Team (Late st Contact Info) Description 09/30/2023 Lab Requisition [facility] Pathology & [place] [address] Outr Resulting Lab, Provider Social History Tobacco [...] as of this encounter Plan of Treatment Scheduled Orders Name Type Priority Associated Diagnoses Orde r Schedule LYME AB Lab Routine Ordered: 09/29 documented as of this encounter Visit Diagnoses Not on filedocumented in this encounter Care Teams Dope Pourer Relationship Specialty Start Date End Date Flor St FNP PCP - General 09/16/19 documented as of this encounter
--- OUTSIDE RECORDS SUMMARY | 2023-09-30 18:14 | XMS_ITS | Encounter Summary ---
Author Organization [facility] Address [address] [place] [address] Care Team Providers Care Crown Pouncer Name Role Phone Unknown, Provider Primary Care Provider [phone] Reason for Visit * Reason Comments Pre-procedure Encounter Details Date Type Department Care Team (Late st Contact Info) Description 09/13/2019 10:00 EDT Nurse Only [facility] - Mobile Testing Department [address] [place] [address] Nurse, [facility] Mobile Testing Encounter for screening for other viral diseases (Primary Dx) Social History Tobacco Use Types Packs/Day Years Used Date Smoking Tobacco: Never Assessed Sex and Gender Information Value Date Recorded [...] Taken Comments Blood Pressure - - Pulse 71 09/13/2019 0955 EDT Temperature - - Respiratory Rate - - Oxygen Saturation 99% 09/13/2019 0955 EDT Inhaled Oxygen Concentration - - Weight - - Height - - Body Mass Index - - documented in this encounter Progress Notes * Adriana Lawrence - 09/13/2019 1000 EDT PRE-OP/PRE-PROCEDURE documented in this encounter Plan of Treatment Not on file documented as of this encounter Procedures Procedure Name Priority Date/Time Associated Diagnosis Comments COVID-19 TESTING Routine 09/13/2019 9:51 EDT Encounter for screening for other viral diseases documented in this encounter Results * COVID-19 TESTING (09/13/2019 9:51 EDT) Performing Lab [facility] 09/15/2019 13:12 EDT [facility] Comment: Please indicate the Triage Tier2 Test performed [place] [address] COVID-19 rt-PCR Result Not Detected Negative 09/15/2019 13:12 EDT [facility] Comment: 2019-novel Coronavirus (2019-nCoV) not detected by the qRT-PCR assay. Consider testing for other respiratory viruses or re-collecting for 2019-nCoV testing. Note: Optimum timing for peak viral levels during infections caused by 2019-nCoV have not been determined. Collection of multiple specimens from the same patient may be necessary to detect the virus. Limitations Positive results are indicative of active infection with SARS-CoV-2 but do not rule out bacterial infection or co-infection with other viruses. The agent detected may not be the definite cause of disease. In addition, detection of viral RNA may not indicate the presence of infectious virus or that SARS-CoV-2 is the causative agent for clinical symptoms. Negative results do not preclude SARS-CoV-2 infection and should not be used as the sole basis for patient management decisions. Negative results must be combined with clinical observations, patient history, and epidemiological information. False negative results may also occur if amplification inhibitors are present in the specimen or if inadequate numbers of organisms are present in the specimen. Optimum specimen types and timing for peak viral levels during infections caused by SARS-CoV-2 have not been fully determined. Collection of multiple specimens (types and time points) from the same patient may be necessary to detect the virus. The test was validated for use with upper respiratory specimens obtained via nasopharyngeal or oropharyngeal swabs in VTM, UTM, M4, M5, M6, saline, and MTM media. The performance of this test has not been established for other specimens. Specimens collected using other FDA recommended Specimen Collection Materials listed in the FDA COVID-19 [employer] communication (May 20, 2019) are processed with the caveat that they were not all validated for use with this test and the result must be interpreted in this context. Furthermore, a false negative results may occur if a specimen is improperly collected, transported or handled. If the virus mutates in the RT-PCR target region, SARS-CoV-2 may not be detected or may be detected less predictably. Inhibitors or other types of interference may produce a false negative result. An interference study evaluating the effect of common cold medications was not performed. This test is not FDA-cleared but its performance characteristics were established by our CLIA-certified, CAP-accredited, high complexity laboratory in accordance with CLIA regulations, College of [employer] (CAP) guidelines (May 13, 2019), and FDA guidance (Apr 24, 2019). This test is only for use under the Food and Drug Administration's Emergency Use Authorization. 09/13/2019 9:51 EDT 09/13/2019 13:29 EDT Jose Manuel Christine MD MICROBIOLOGY - GENER AL ORDERABLES Performing Organization Address City/State/[facility] Co de Phone Number [facility] [address] [place] [phone] documented in this encounter Visit Diagnoses Diagnosis Encounter for screening for other viral diseases- Primary documented in this encounter Care Teams Crown Pouncer Relationship Specialty Start Date End Date Unknown, Provider, PCP - General 09/13/19 09/15/19 documented as of this encounter
--- OUTSIDE RECORDS SUMMARY | 2023-09-30 18:14 | XMS_ITS | Encounter Summary ---
Author Organization [facility] Address [address] [place] [address] Care Team Providers Care Planning Rn Name Role Phone Unknown, Provider Primary Care Provider Encounter Details Date Type Department Care Team (Latest Contact Info) Description 12/11/2015 11:28 EDT - 12/11/2015 23:59 EDT Hospital Encounter [address] [address] Unknown, Provider, Discharge Disposition: Home or Self Care Social History Tobacco Use Types Packs/Day Years Used Date Smoking Tobacco: Never Assessed Sex and Gender Information Value Date Recorded Sex Assigned at Not on file Gender Identity Male 09/13/2019 10:34 EDT Sexual Orientation Not on file documented as of this encounter Discharge Disposition Disposition Code Departure Means Destination Home or Self [place] documented in this encounter Plan of Treatment Not on file documented as of this encounter Visit Diagnoses Not on filedocumented in this encounter Care Teams Planning Rn Relationship Specialty Start Date End Date Unknown, Provider, PCP - General 11/09/09 12/14/15 documented as of this encounter
--- OUTSIDE RECORDS SUMMARY | 2023-09-30 18:14 | XMS_ITS | Encounter Summary ---
Author Organization [facility] Address [address] [place] [address] Care Team Providers Care District Adviser Name Role Phone Reynold Cheng MD Primary Care Provider + Reason for Visit * Reason Onset Date Comments COVID-19 08/26/2019 Referral Request 08/26/2019 Labs Only 08/26/2019 09/13/19 10:00am Encounter Details Date Type Department Care Team (Late st Contact Info) Description 08/26/2019 Telephone [facility] ENT - [place] [address] [place], [place] [address] Jose Manuel Christine MD [address] [place] [address] [address] [place] [phone] COVID-19; Referral Request; Labs Only (09/13/19 10:00am) Social History Tobacco Use Types Packs/Day Years Used Date Smoking Tobacco: Never Assessed Sex and Gender Information Value Date Recorded Sex Assigned at Not on file Gender Identity Male 09/13/2019 10:34 EDT Sexual Orientation Not on file documented as of this encounter Miscellaneous Notes * Telephone Encounter - Soledad Miguel - 09/08/2019 1139 EDT ..C-19 screening recommended by provider. Routed for testing ordering. Vehicle: [employer] Color: Dark Green Cell #: [phone] Spoke to patient and verbally gave instructions for Testing Facility. Patient is instructed to be there at 10:00am sharp on 09/13/19. * Telephone Encounter - Soledad Miguel - 09/07/2019 1218 EDT [email or web address] * Telephone Encounter - Gisselle Rivera - 08/26/2019 1249 EDT Pt is scheduled for in an office procedure with DR. Christine on 09/15 * Telephone Encounter - Chaya Stephens, DEBORAH - 08/26/2019 1117 EDT Sent to testing pool * Telephone Encounter - Maryuri Serna - 08/26/2019 1013 EDT Jose Manuel called and scheduled appt that requires covid testing. Please schedule this test Seeing Dr. Christine 09/16/19 @ 8:30 AM documented in this encounter Plan of Treatment Not on file documented as of this encounter Visit Diagnoses Diagnosis Preprocedural examination- Primary Preoperative examination, unspecified documented in this encounter Care Teams District Adviser Relationship Specialty Start Date End Date Reynold Cheng MD [address] [place] [address] [place] [phone] PCP - General 12/15/15 09/12/19 documented as of this encounter
--- OUTSIDE RECORDS SUMMARY | 2023-09-30 18:14 | XMS_ITS | Encounter Summary ---
Author Organization [facility] Address [address] [place] [address] Care Team Providers Care Building Construction Contractor Name Role Phone Unknown, Provider Primary Care Provider + [phone] Primary Care Provider [phone] Encounter Details Date Type Department Care Team (Late st Contact Info) Description 09/13/2019 Lab Requisition [facility] Pathology & Laboratory Medicine - [facility] [address] [place] [address] Outr Resulting Lab, Provider Social History Tobacco [...] 10:24 EDT documented as of this encounter Plan of Treatment Not on file documented as of this encounter Procedures Procedure Name Priority Date/Time Associated Diagnosis Comments DO NOT ORDER STANDALONE - BROAD COVID TEST Today 09/13/2019 9:51 EDT COVID-19 TESTING Routine 09/13/2019 9:51 EDT documented in this encounter Results * DO NOT ORDER STANDALONE - BROAD COVID TEST (09/13/2019 9:51 EDT) COVID-19 rt-PCR Result NEGATIVE Negative 09/15/2019 10:45 EDT [facility] Comment: 2019-novel Coronavirus (2019-nCoV) not detected by [...] in accordance with CLIA regulations, College of [place] [employer]ologists (CAP) guidelines (May 13, 2019), and FDA guidance (Apr 24, 2019). This test is only for use under the Food and Drug Administration's Emergency Use Authorization. Swab ENTIRE NASOPHARYNX / Unknown 09/13/2019 9:51 EDT 09/13/2019 20:52 EDT Provider Outr Resulting Lab MICROBIOLOGY - GENERAL ORDERABLES [facility] [place] * COVID-19 TESTING (09/13/2019 9:51 EDT) [facility] COVID-19 rt-PCR Result NEGATIVE Negative 09/15/2019 12:36 EDT [facility] Comment: 2019-novel Coronavirus (2019-nCoV) not detected by [...] in accordance with CLIA regulations, College of [employer]ologists (CAP) guidelines (May 13, 2019), and FDA guidance (Apr 24, 2019). This test is only for use under the Food and Drug Administration's Emergency Use Authorization. Performing Lab [facility] 09/15/2019 12:36 EDT [facility] Swab 09/13/2019 9:51 EDT 09/13/2019 20:52 EDT Provider Outr Resulting Lab MICROBIOLOGY - GENERAL ORDERABLES [facility] [address] [place], [place] [id number] [place] [address] LABORATORY [place], [place] documented in this encounter Visit Diagnoses Not on filedocumented in this encounter Care Teams Building Construction Contractor Relationship Specialty Start Date End Date Unknown, Provider, PCP - General 09/13/19 09/15/[address] FNP PCP - General 09/16/19 documented as of this encounter
--- OUTSIDE RECORDS SUMMARY | 2023-09-30 18:14 | XMS_ITS | Encounter Summary ---
Author Organization [facility] Address [address] [place] [address] Care Team Providers Care Admin Asst Name Role Phone Unknown, Provider Primary Care Provider [phone] Encounter Details Date Type Department Care Team (Late st Contact Info) Description 11/06/2009 Results Only [facility] [phone] Ruth Sousa MD [address] [facility] [address] [place], [place] [address] Social History Tobacco Use Types Packs/Day Years Used Date Smoking Tobacco: Never Assessed Sex and Gender Information Value Date Recorded Sex Assigned at Not on file Gender Identity Male 09/13/2019 10:34 EDT Sexual Orientation Not on file documented as of this encounter Plan of Treatment Not on file documented as of this encounter Procedures Procedure Name Priority Date/Time Associated Diagnosis Comments SURGICAL PATHOLOGY Routine 11/06/2009 0:00 EDT documented in this encounter Results * SURGICAL PATHOLOGY (11/06/2009 0:00 EDT) Pathology Report: SURGICAL PATHOLOGY REPORT ? Reports generated via electronic interface contain original data; ? however they are lacking the format of the original report. ? Caution should be taken when reading/interpreti ng unformatted reports. ? Name: ? ARLEN, KIM Rahman ? Accession #: ? [id number] ? : ? 1950 (Age: 59) ??M ? Collect Date: ? 11/06/2009 ? Location: ? [facility] ? Receive Date: ? 11/08/2009 ? Provider: RUTH SOUSA MD ? Copy to: MIKEL KAROLINA BOAT MASTER ? Final Pathologic Diagnosis: ? Skin of shoulder, left, punch biopsy: ? - Actinic keratosis, ulcerated. ??See microscopic and comment. ? Comment: ? Despite deeper levels, there is no evidence of a melanocytic proliferation. The biopsy is predominated by features of excoriation with associated reactive ?? changes. At the periphery of the biopsy specimen, the epidermis shows features ?? consistent with an actinic keratosis. Clinical correlation is recommended. ? (Dr. Head)/benny ? Microscopic Description: ? Sections consist of a punch biopsy of skin. ??Centrally, there is epidermal ulceration with underlying ulcer bed and reactive changes. ??The epidermis ? adjacent to this shows nuclear enlargement of the basal keratinocytes with ? associated dispolarity and overlap. There is overlying parakeratosis. ??Solar ? elastosis is evident. ??Deeper levels have been examined. ??(Dr. Houser/benny ? Document reviewed and electronically signed by: ? Deedee Head MD ? Report ??Date: 11/13/2009 13:58 ? By the signature above, the attending physician certifies that he/she has ? personally conducted a gross and/or microscopic examination of the described ? specimens and rendered or confirmed the above diagnosis. ? Specimen(s) Received: ? Punch biopsy lesion L shoulder ? Clinical History: ? Nevus; non-healing wound; strong FHx melanoma ? Gross Description: ? Received in formalin labelled Arlen, Kim and L shoulder is a punch biopsy of benedict, focally benedict-brown, and crusted skin measuring 0.8 cm in diameter and 0.6 cm in thickness. ??The specimen is trisected and submitted entirely in ?? one cassette. ??(Jimmie Umana)/vladimir ? End of Report ? [facility] 11/06/2009 11/08/2009 17: 30 EDT Ruth Sousa MD PATHOLOGY ORDERABLES [facility] [address] [place] [address] documented in this encounter Visit Diagnoses Not on filedocumented in this encounter Care Teams Admin Asst Relationship Specialty Start Date End Date Unknown, Provider, PCP - General 11/09/09 12/14/15 documented as of this encounter
--- OUTSIDE RECORDS SUMMARY | 2023-09-30 18:14 | XMS_ITS | Encounter Summary ---
Author Organization [facility] Address [address] [place] [address] Care Team Providers Care Professor Of Management Name Role Phone Unknown, Provider Primary Care Provider [phone] Encounter Details Date Type Department Care Team (Late st Contact Info) Description 12/11/2015 Results Only [facility] [phone] Ruth Sousa MD [address] [facility] [address] [place], [place] [address] Social History Tobacco Use Types Packs/Day Years [...] Date/Time Associated Diagnosis Comments SURGICAL PATHOLOGY Routine 12/11/2015 9:02 EDT documented in this encounter Results * SURGICAL PATHOLOGY (12/11/2015 9:02 EDT) Pathology Report: SURGICAL PATHOLOGY REPORT Reports generated via electronic interface contain original data; however they are lacking the format of the original report. Caution should be taken when reading/interpret ing unformatted reports. Name: ? KIM MCKINLEY ? Accession #: ? [id number] ? : ? 1950 (Age: 65) ??M ? Collect Date: ? 12/11/2015 ? Location: ? [facility] ? Receive Date: ? 12/11/2015 ? Provider: RUTH SOUSA MD Copy to: ? Final Pathologic Diagnosis: A. ??SKIN OF SCALP, LEFT, SHAVE BIOPSY: - Hyperkeratosis with parakeratosis. ??See comment. B. ??SKIN OF SCALP, RIGHT, SHAVE BIOPSY: - Actinic keratosis. - Lesion extends to biopsy edge and base. ?? Comment: In specimen A, the biopsy is composed of orthohyperparaker atosis. ??Despite multiple levels, there is no epidermis present for evaluation, precluding assessment. ??(Dr. Head)/n Document reviewed and electronically signed by: MASSIEL HEAD MD Report ??Date: 12/15/2015 15:14 By the signature above, the attending physician certifies that he/she has personally conducted a gross and/or microscopic examination of the described specimens and rendered or confirmed the above diagnosis. Specimen(s) Received: A. ??Left scalp B. ??Right scalp Clinical History: Two non-healing, less than 3.0 mm lesions, scalp Gross Description: A. ?Received in formalin labelled with proper patient identification (initials C, J) and left scalp is an irregular pale kulkarni skin shave, 0.3 x 0.3 x 0.1 cm. The surface is granular. Entirely submitted in A1. B. ?Received in formalin labelled with proper patient identification (initials C, J) and Rt scalp is an irregular delicate pale kulkarni skin shave, 0.3 x 0.25 x 0.1 cm. The surface is slightly granular. Entirely submitted in B1. BASILIO Zuniga (ASCP) 12/13/2015 10:03 AM End of Report [facility] 12/11/2015 9:02 EDT 12/11/2015 9:02 EDT Ruth Sousa MD PATHOLOGY ORDERABLES [facility] [address] [place] [address] documented in this encounter Visit Diagnoses Not on filedocumented in this encounter Care Teams Professor Of Management Relationship Specialty Start Date End Date Unknown, Provider, PCP - General 11/09/09 12/14/15 documented as of this encounter
--- OUTSIDE RECORDS SUMMARY | 2023-09-30 18:14 | XMS_ITS | Encounter Summary ---
Author Organization [facility] Address [address] [place] [address] Care Team Providers Care Fact Checker Name Role Phone Unknown, Provider Primary Care Provider Encounter Details Date Type Department Care Team (Latest Contact Info) Description 09/13/2019 Travel Social History Tobacco Use Types Packs/Day Years [...] on filedocumented in this encounter Care Teams Fact Checker Relationship Specialty Start Date End Date Unknown, Provider, PCP - General 09/13/19 09/15/19 documented as of this encounter
--- OUTSIDE RECORDS SUMMARY | 2023-09-30 18:14 | XMS_ITS | Encounter Summary ---
Author Organization [facility] Address [address] [place] [address] Care Team Providers Care Senior Lead Java Developer Name Role Phone Reynold Cheng MD Primary Care Provider + Unknown, Provider Primary Care Provider + [phone] Primary Care Provider + [phone] Encounter Details Date Type Department Care Team (Late st Contact Info) Description 06/30/2019 Lab Requisition [facility] Pathology & Laboratory Medicine - [facility] [address] [place] [address] Outr Resulting Lab, Provider Social History Tobacco [...] Procedure Name Priority Date/Time Associated Diagnosis Comments ZZCOVID-19 TEST [facility] PCR Today 06/30/2019 14:03 EDT COVID-19 TESTING Routine 06/30/2019 14:0 3 EDT documented in this encounter Results * COVID-19 TEST [facility] PCR (06/30/2019 14:03 EDT) Swab ENTIRE NASOPHARYNX / Unknown 06/30/2019 14:03 EDT 06/30/2019 21:57 EDT Provider Outr Resulting Lab MICROBIOLOGY - GENERAL ORDERABLES Performing Organization Address City/[facility]/ZIP Co de Phone Number [facility] [address] [place] [address] * COVID-19 TESTING (06/30/2019 14:03 EDT) COVID-19 rt-PCR Result Negative Negative 2019 20:46 EDT [facility] Comment: Negative results do not preclude 2019-nCoV infection and should not be used as the sole basis for treatment or other patient management decisions. Negative results must be combined with clinical observations, patient history, and epidemiological information. This test was developed and its performance characteristics determined by [facility]. It has not been cleared or approved by the US Food and Drug Administration. FDA does not require this test to go through premarket FDA review. This test is used for clinical purposes. It should not be regarded as investigational or for research. This laboratory is certified under the Clinical Laboratory Improvement Amendments (CLIA) as qualified to perform high complexity clinical laboratory testing. This test is based on the CDC COVID-19 Emergency Use Authorization (EUA) assay, with minor modification as defined by the FDA Performed on the [employer]. Performing Lab [facility] Lab 2019 20:46 EDT [facility] Swab ENTIRE NASOPHARYNX / Unknown 06/30/2019 14:03 EDT 06/30/2019 21:57 EDT Provider Outr Resulting Lab MICROBIOLOGY - GENERAL ORDERABLES Performing Organization Address [facility] Co de Phone Number [facility] [address] [place] [address] documented in this encounter Visit Diagnoses Not on filedocumented in this encounter Care Teams Senior Lead Java Developer Relationship Specialty Start Date End Date Reynold Cheng MD [address] [place] [id number] PCP - General 12/15/15 09/12/19 Unknown, MD Alycia PCP - General 09/13/19 09/15/[address] FNP PCP - General 09/16/19 documented as of this encounter
[2023-10-01 10:42] LABS: Lyme Ab w Rflx to Lyme Confirm Negative (Negative)
[2023-10-03 15:41] LABS: Anaplasma phagocytophilum Negative (Negative); B. miyamotoi PCR Negative (Negative); Babesia divergens/MO-1 Negative (Negative); Babesia duncani Negative (Negative); Babesia microti Negative (Negative); Ehrlichia chaffeensis Negative (Negative); Ehrlichia ewingii/canis Negative (Negative); Ehrlichia muris eauclairensis Negative (Negative)
== END 2023-09-30 18:08 | disposition home or self-care (01) ==
LOC: NCHCN 18:07
PROVIDERS: PCP Family Medicine; Visit Provider Family Medicine
DX: M13.0 Polyarthritis, unspecified (principal)
CPT/HCPCS: 85652; 87798; 86140; 86618

== ENCOUNTER 2024-01-19 15:40 | Outpatient (REF) | payer MEDICARE, BC, SELFPAY ==
--- OUTSIDE RECORDS SUMMARY | 2024-01-19 15:45 | XMS_ITS ---
Author Organization Unknown Address [address] [place] [phone] Phone Care Team Providers Care Billing And Quality Technician Name Role Phone ALLISON LOPEZ Registered Nurse Unavailable LUIS CARLOS MAGAÑA Registered Nurse Unavailable DANITA Anderson Attending Unavailable UNLISTED PROVIDER - REQUESTED Xhandoff Un available Results TROPONIN HIGH SENSITIVITY* - Collect Date/Time: 01/18/2022 01:57 [facility] ID: [id number] [address] [place] [address], [address] LOINC: 05267-0 Test Value Unit Reference Range Code Code System Flag TROPONIN HS 8.2 pg/mL L=0.0 H=60.4 Specimen seq. ADM. PTT PARTIAL THROMBOPLASTIN T ALBERT* - Collect Date/Time: 01/18/2022 01:57 [facility] ID: [id number] [address] [place] [address], [phone] LOINC: 54422-6 Test Value Unit Reference Range Code Code System Flag PTT 23.9 seconds L=24.5 H=32.8 17898-6 LOINC L PT PROTHROMBIN TIME* - Colle ct Date/Time: 01/18/2022 01:57 [facility] ID: [id number] [address] [place] [address], [address] LOINC: 5902-2 Test Value Unit Reference Range Code Code System Flag PROTIME 10.1 seconds L=9.3 H=11.4 5902-2 LOINC INR 1.01 L=2.00 H=3.00 49998-4 LOINC L D-DIMER - Collect Date/Time: 01/18/2022 01:57 [facility] ID: [id number] [address] [place], [place], [address] LOINC: 66046-4 Test Value Unit Reference Range Code Code System Flag D-DIMER 0.32 mg/L L=0.19 H=0.50 50025-8 LOINC COMPREHENSIVE METABOLIC PANE L (CMP) - Collect Date/Time: 01/18/2022 01:57 [facility] ID: [id number] [address] [place], [place], [address] LOINC: 29125-1 Test Value Unit Reference Range Code Code [...] H=34 2028-9 LOINC ANION GAP 4.4 mmol/L 70218-9 LOINC CALCIUM SERUM 8.4 mg/dL L=8.2 H=10.2 42631-3 LOINC BILIRUBIN TOTAL 0.3 mg/dL L=0.0 H=1.3 1975-2 LOINC ALK. PHOS. 75 U/L L=46 H=116 6768-6 LOINC SGOT (AST) 26 U/L L=15 H=37 1920-8 LOINC SGPT (ALT) 27 U/L L=12 H=78 1742-6 LOINC TOTAL PROTEIN 7.3 gm/dL L=6.0 H=8.0 2885-2 LOINC ALBUMIN 3.7 gm/dL L=3.4 H=5.0 1751-7 LOINC AGE 71 years eGFR (non-Afr.Amer.) 60 mL/min 48562-5 LOINC eGFR (Afr-Georgian) 73 mL/min 36546-4 LOINC CBC W/ DIFFERENTIAL* - Colle ct Date/Time: 01/18/2022 01:57 [facility] ID: [id number] [address] [place], [place], [address] LOINC: 59200-2 Test Value Unit Reference Range Code Code System Flag WBC 5.06 th/cmm L=5.00 H=10.00 6690-2 LOINC NEUT % 43.9 % L=40.0 H=80.0 LYMPH % 38.5 % L=10.0 H=50.0 MONO % 13.4 % L=2.0 H=12.0 75195-4 LOINC H EOS % 3.2 % L=0.0 H=8.0 BASO % 0.6 % L=0.0 H=3.0 IG % 0.4 % L=0.0 H=1.1 2514-8 LOINC NRBC % 0.0 % L=0.0 H=0.0 79237-5 LOINC NEUT abs count 2.2 th/cmm L=1.6 H=8.4 751-8 LOINC LYMPH abs count 2.0 th/cmm L=1.5 H=4.0 731-0 LOINC MONO abs count 0.7 th/cmm L=0.2 H=1.0 742-7 LOINC EOS abs count 0.2 th/cmm L=0.0 H=0.5 711-2 LOINC BASO abs count 0.0 th/cmm L=0.0 H=0.2 704-7 LOINC IG abs count 0.0 th/cmm L=0.0 H=0.1 20000-4 LOINC NRBC abs count 0.0 mil/cmm L=0.0 H=0.0 53251-3 LOINC RBC 4.30 mil/cmm L=4.30 H=6.20 789-8 [...] CHEST - Compl eted: 01/18/2022 05:18 LOINC: [facility] [place], [place] [address] PACS RIB MATCHER AND FITTER REPORT Patient Name: KIM MCKINLEY MRN: Sex: : Age: [id number] M 1950 71 Account: Accession: Admit: StayType: [id number] 01/18/2022 E/R Ordered: Order ID: Submitted: Ordering Provider: 01/18/2022 02:52 [id number] PJ JOHNSON Completed: Technologist: Resulted: 01/18/2022 05:18 [...] CONT RAST - Completed: 01/18/2022 05:18 LOINC: [facility] [place], [place] [address] PACS RIB MATCHER AND FITTER REPORT Patient Name: KIM MCKINLEY MRN: Sex: : Age: [id number] M 1950 Account: Accession: Admit: StayType: [id number] 01/18/2022 E/R Ordered: Order ID: Submitted: Ordering Provider: 01/18/2022 02:52 [id number] PJ JOHNSON Completed: Technologist: Resulted: 01/18/2022 05:18 [...] AND LATERAL - Completed: 01/21/2022 14:10 LOINC: [facility] [place], [place] [address] PACS RIB MATCHER AND FITTER REPORT Patient Name: KIM MCKINLEY MRN: Sex: : Age: [id number] M 1950 71 Account: Accession: Admit: StayType: [id number] 01/18/2022 E/R Ordered: Order ID: Submitted: Ordering Provider: 01/18/2022 14:09 [id number] PJ HUTCHINS Completed: Technologist: Resulted: 01/21/2022 14:09 [...] em Smoking History Never smoker (Never Smoked) 513176931 SNOMED CT Sex Male Vital Signs Vital Sign Value Unit Winn Value Winn Unit Date/Time Recent/Initial? Code Code System Body Mass Index 24.68 kg/m2 01/18/2022 01:56 Initial 74159 -5 LOINC Systolic Blood Pressure 133 mm[Hg] [...] Saturation 98 % 2021 07:14 Most Recent 94706 -5 LOINC O2 Saturation 95 % 2021 01:56 Initial 78110 -5 LOINC Pulse 58.0 /min 01/18/2022 07:14 Most Recent 8867- 4 LOINC Pulse 68.0 /min 01/18/2022 01:56 Initial 8867- 4 LOINC Respiration 17 /min 01/19/20 05:15 Most Recent 9279- 1 LOINC Respiration 18 /min 01/19/20 01:56 Initial 9279- 1 LOINC Temperature 35.9 Christelle 96.6 F 01/19/20 01:56 Initial 8310- 5 LOINC Weight 82.55 kg 182.00 lbs 01/18/2022 01:56 Initial 65265 -7 [facility] Medications Medication Start Date End Date Route Frequency Dose Code Code System Medication Instructions Home Meds Xarelto 15MG Oral Tablet 01/18/2022 Unknown ORAL TWICE A DAY 1 TABLET 2615920 RxNorm TAKE 1 TABLET ORAL TWICE A DAY Xarelto 20MG Oral Tablet 01/18/2022 Unknown ORAL DAILY 1 TABLET 9398020 RxNorm TAKE 1 TABLET ORAL DAILY Hospital [...] Co de Code System SULFA (SULFONAMIDE ANTIBIOTICS) ABDOMINAL PAIN (SNOMED-CT: null) Moderate Active Plan of Treatment US ABDOMEN LIMITED 1 ORGAN 02/07/2022 CT ANGIOGRAPHY PULMONARY PE 01/25/2022 PRE-OP COVID-19 TESTING 02/02/2022 X-RAY 12/18/2021 Encounters Encounter Diagnosis Start Date Code Code Sys tem Other pulmonary embolism without acute cor pulmonale 1 03/20/2021 SNOMED-CT Personal Care Team Section Performer Name Performer Role Active Date Inactive Da jaswant
--- OUTSIDE RECORDS SUMMARY | 2024-01-19 15:45 | XMS_ITS ---
Author Organization Unknown Address [address] [place] [phone] Phone Care Team Providers Care Chemical Equipment Sales Engineer Name Role Phone RANGEL DA SILVA Attending Unavailable Results XR CHEST 2V PA AND LATERAL - Completed: 12/18/2021 08:41 [facility] [place], [place] [address] PACS DRUPAL ARCHITECT REPORT Patient Name: KIM MCKINLEY MRN: Sex: : Age: [id number] M 1950 71 Account: Accession: Admit: StayType: [id number] 12/18/2021 E/R Ordered: Order ID: Entered Order: Ordering Provider: 12/18/2021 08:30 [id number] [facility] REKHA MULTANI Completed: Tech Completed: [...] em Smoking History Never smoker (Never Smoked) [id number] SNOMED CT Sex Male Medications Medication Start Date End Date Route Frequency Dose Code Code System Medication Instructions Home Meds Xarelto 15MG Oral Tablet 01/18/2022 Unknown ORAL TWICE A DAY 1 TABLET 4983886 RxNorm TAKE 1 TABLET ORAL TWICE A DAY Xarelto 20MG Oral Tablet 01/18/2022 Unknown ORAL DAILY 1 TABLET 3452470 RxNorm TAKE 1 TABLET ORAL DAILY Hospital [...]
--- OUTSIDE RECORDS SUMMARY | 2024-01-19 15:46 | XMS_ITS ---
Author Organization Unknown Address [address] [place] [phone] Phone Care Team Providers Care Metallurgist Process Name Role Phone RANGEL DA SILVA Attending Unavailable Results CT ANGIOGRAPHY CHEST - Compl eted: 01/25/2022 13:54 LOINC: [facility] [place], [place] [address] PACS SENIOR WINDOWS SYSTEMS ENGINEER REPORT Patient Name: KIM MCKINLEY MRN: Sex: : Age: [id number] M 1950 71 Account: Accession: Admit: StayType: [id number] 01/25/2022 O/P Ordered: Order ID: Submitted: Ordering Provider: 01/25/2022 13:17 [id number] [facility] REKHA MULTANI Completed: Technologist: Resulted: 01/25/2022 13:54 [...] Addendum: Upon discussion with BASILIO Fried from [facility] hematology, the images were reviewed from the [...] em Smoking History Never smoker (Never Smoked) 935735452 SNOMED CT Sex Male Medications Medication Start Date End Date Route Frequency Dose Code Code System Medication Instructions Home Meds Xarelto 15MG Oral Tablet 01/18/2022 Unknown ORAL TWICE A DAY 1 TABLET 6523776 RxNorm TAKE 1 TABLET ORAL TWICE A DAY Xarelto 20MG Oral Tablet 01/18/2022 Unknown ORAL DAILY 1 TABLET 2019458 RxNorm TAKE 1 TABLET ORAL DAILY Hospital [...]
--- OUTSIDE RECORDS SUMMARY | 2024-01-19 15:46 | XMS_ITS | Encounter Summary ---
Author Organization [facility] Address [address] [place] [address] Care Team Providers Care Electroplater Automatic Name Role Phone NeetujennieanicetoNancyangelica ACHARYA Primary Care Provider [phone] Reason for Visit * (Routine/Next Available) - Receiving Office to Obtain Authorization Specialty Diagnoses / Procedures Referred By Sylvester t Referred To Contact Procedures CT OUTSIDE IMAGES CHEST Imaging, External Referral ID Status Reason Start Date Expiration Date Visits Requested Visits Authorized [id number] Receiving Office to Obtain Authorization 01/28/2022 1 1 Encounter Details Date Type Department Care Team (Latest Contact Info) Description 01/25/2022 - 01/25/2022 23:59 EST Hospital Encounter [facility] Center Secondary Reads [place] Discharge Disposition: Home [...] Recorded Sex Assigned at Not on file Legal Sex Male 18:48 EST Gender Identity Male 09/13/2019 10:34 EDT Sexual Orientation Not on file documented as of this encounter Functional Status * Because of a physical, mental, or emotional condition, does this person have difficulty doing errands alone such as visiting a doctor's office or shopping? Answer Date of Assessment Author No 12/21/2020 11:12 EDT documented as of this encounter Mental Status * Because of a physical, mental, or emotional condition, does this person have serious difficulty concentrating, remembering, or making decisions? Answer Entry Date Author Yes 12/21/2020 11:12 EDT documented in this encounter Medications at Time of Discharge Cetirizine 10 mg capsule Take 10 mg [...] 16:09 EST This is a non-reportable exam. us External Imaging IMG OTHER IMAGING ORDERABLES Fi nal Result documented in this encounter Visit Diagnoses Not on filedocumented in this encounter Care Teams Electroplater Automatic Relationship Specialty Start Date End Date Flor St FNP PCP - General 09/16/19 documented as of this encounter
--- OUTSIDE RECORDS SUMMARY | 2024-01-19 15:46 | XMS_ITS | Encounter Summary ---
Author Organization [facility] Address [address] [place] [address] Care Team Providers Care Centrifugal Station Operator Name Role Phone NeetujennieanicetoFlor PATRIZIA Primary Care Provider Encounter Details Date Type Department Care Team (Late st Contact Info) Description 04/26/2022 13:45 EST Phlebotomy Only [facility] ED Center 2 Phlebotomy [address] [place] [address] Guitar Maker, Acc Phlebotomy Rib pain; Family history of [...] or making decisions? Answer Entry Date Author No 04/15/2022 9:22 EST documented in this encounter Plan of Treatment [...] SERUM FREE LIGHT CHAINS (04/26/2022 14:00 EST) Doffing Free Lt Chain 1.99(H) 0.33 - 1.94 mg/dL 04/29/2022 10:53 EST [facility] Lambda Free Lt Chain 1.50 0.57 - 2.63 mg/dL 04/29/2022 10:53 EST [facility] Doffing/Lambda Ratio 1.33 0.26 - 1.65 04/29/2022 10:53 EST [facility] Blood VENOUS BLOOD / Unknown Venipuncture / Unknown 04/26/2022 14:00 EST 04/26/2022 15:04 EST us Flory Fried PA-C CHEMISTRY & BLOOD GAS OR DERABLES Final Result [facility] [address] [place] [address] * SPEP WITH IMMUNOTYPING PERFORMABLE (04/26/2022 14:00 EST) Albumin % 62.4 55.8 - 66.1 % 04/29/2022 13:40 EST [facility] Albumin g/dL 4.3 3.6 - 5.2 g/dL 04/29/2022 13:40 EST [facility] Alpha-1 % 3.9 2.9 - 4.9 % 04/29/2022 13:40 EST [facility] Alpha-1 g/dL 0.30 0.15 - 0.40 g/dL 04/29/2022 13:40 [facility] Alpha-2 % 9.6 7.1 - 11.8 % 04/29/2022 13:40 [facility] Alpha-2 g/dL 0.70 0.50 - 1.00 g/dL 04/29/2022 13:40 [facility] Beta % 10.7 8.4 - 13.1 % 04/29/2022 13:40 [facility] Beta g/dL 0.70 0.60 - 1.20 g/dL 04/29/2022 13:40 [facility] Gamma % 13.4 11.1 - 18.8 % 04/29/2022 13:40 [facility] Gamma g/dL 0.90 0.60 - 1.60 g/dL 04/29/2022 13:40 [facility] SPEP Comment No apparent monoclonal protein seen on serum electrophoresis 04/29/2022 13:40 [facility] Comment:See scanned/suppleme ntary report. Immunotyping , Serum Current Interpretation: Negative for monoclonal immunoglobulins. Reviewed by: Jerry Albarran MD 04/29/2022 1223 04/29/2022 13:40 [facility] Total Protein 6.9 6.3 - 8.2 g/dL 04/29/2022 13:40 [facility] Blood VENOUS BLOOD / Unknown Venipuncture / Unknown 04/26/2022 14:00 EST 04/26/2022 15:04 EST us Flory Fried PA-C CHEMISTRY & BLOOD GAS OR DERABLES Final Result [facility] [address] [place] [address] * PROTEIN, TOTAL (04/26/2022 14:00 EST) Blood VENOUS BLOOD / Unknown Venipuncture / Unknown 04/26/2022 14:00 EST 04/26/2022 15:04 EST us Flory Fried PA-C CHEMISTRY & BLOOD GAS OR DERABLES Final Result [facility] [address] [place] [address] documented in this encounter Visit Diagnoses Diagnosis Rib pain Chest pain, unspecified Family history of multiple myeloma Family history of other lymphatic and hematopoietic neoplasms documented in this encounter Care Teams Centrifugal Station Operator Relationship Specialty Start Date End Date Flor St FNP PCP - General 09/16/19 documented as of this encounter
--- OUTSIDE RECORDS SUMMARY | 2024-01-19 15:46 | XMS_ITS | Encounter Summary ---
Author Organization [facility] Address [address] [place] [address] Care Team Providers Care Story Editor Name Role Phone Alma Rosa Flor ACHARYA Primary Care Provider [phone] Encounter Details Date Type Department Care Team (Late st Contact Info) Description 08/29/2023 Lab Requisition [facility] Pathology & Laboratory Medicine - [address] [address] Outr Resulting Lab, Provider Social History Tobacco [...] PSA 1.3 <=6.5 ng/mL 08/29/2023 23:12 EDT [facility] Blood VENOUS BLOOD / Unknown 08/29/2023 10:40 EDT 08/29/2023 21:41 EDT Narrative [facility] - 08/29/2023 23:12 EDT NOTE: Serum PSA concentration should not be interpreted as absolute evidence for the presence or absence of malignant disease. Assayed on [email or web address] XPT using chemiluminescent technology.??Values obtained by using different assay methods cannot be used interchangeably. us Provider Outr Resulting Lab CHEMISTRY & BLOOD GA S ORDERABLES Final Result [facility] [address] [place] [address] documented in this encounter Visit Diagnoses Not on filedocumented in this encounter Care Teams Story Editor Relationship Specialty Start Date End Date Flor St FNP PCP - General 09/16/19 documented as of this encounter
--- OUTSIDE RECORDS SUMMARY | 2024-01-19 15:46 | XMS_ITS | Encounter Summary ---
Author Organization [facility] Address [address] [place] [address] Care Team Providers Care Delicatessen Department Manager Name Role Phone Alma Rosa Flor ACHARYA Primary Care Provider Encounter Details Date Type Department Care Team (Late st Contact Info) Description 09/30/2023 Lab Requisition [facility] Pathology & Laboratory Medicine - [address] [address] Outr Resulting Lab, Provider Social History Tobacco [...] Date/Time Associated Diagnosis Comments LYME AB Routine 09/30/2023 10:50 EDT documented in this encounter Results * LYME AB (09/30/2023 10:50 EDT) Lyme Ab Negative Negative 10/01/2023 10:38 EDT [facility] Blood VENOUS BLOOD / Unknown 09/30/2023 10:50 EDT 09/30/2023 21:44 EDT us Provider Outr Resulting Lab IMMUNOLOGY AND SEROL OGY ORDERABLES Final Result [facility] [address] [place] [address] documented in this encounter Visit Diagnoses Not on filedocumented in this encounter Care Teams Delicatessen Department Manager Relationship Specialty Start Date End Date Flor St FNP PCP - General 09/16/19 documented as of this encounter
--- OUTSIDE RECORDS SUMMARY | 2024-01-19 15:46 | XMS_ITS | Clinical Summary ---
Author Organization [facility] Address [address] [place] [address] Care Team Providers Care Yard Pilot Name Role Phone NeetujennieanicetoFlor PATRIZIA Primary Care Provider [phone] Allergies Active Allergy Reactions Criticality Noted Date Comments Levofloxacin Other (See Comments) 09/16/2019 Caused liver problems Sulfa (Sulfonamide Antibiotics) Nausea Only 09/16/2019 Medications omeprazole (PRILOSEC) 20 mg capsule Take 40 [...] times daily. Med Name: Jenny Morris Active Surgical History Surgery Date Site/Laterality Comments KNEE [...] 168/80 04/15/2022 0927 EST Pulse 60 04/15/2022 09 EST Temperature 36.9 ??C (98.4 ??F) 04/15/2022 09 EST Respiratory Rate 16 04/15/2022 0926 EST Oxygen Saturation 99% 04/15/2022 09 EST Inhaled Oxygen Concentration - - Weight 83.8 kg (184 lb 12.8 oz) 04/15/2022 09 EST Height 180.8 cm (5' 11.18) 04/15/2022 09 EST Body Mass Index 25.64 04/15/2022 09 EST Plan of Treatment Health Maintenance Due Date Last Done Comments Hepatitis C Screen 1950 Fall Risk Screening 2017 COVID-19 Vaccine ( season) 2023 RSV Immunization ( o r 60+ Years) (1 - 1-dose 75+ series) 07/02/2027 Insurance [facility] Care Teams Yard Pilot Relationship Specialty Start Date End Date Flor St FNP PCP - General 09/16/19
--- OUTSIDE RECORDS SUMMARY | 2024-01-19 15:46 | XMS_ITS | Continuity of Care Document ---
Author Organization [facility] Address [address] [place] [phone] Phone Care Team Providers Care Packer Denture Name Role Phone [place] Joseph Unavailable [...] Audio Copay Prepayment Office/Outpt New - Low [facility] - Time Bench Audio Advance Directives Directive Yes / No Effective Date File Name No Information Encounters Encounter Description Practice Location Reason(s) For Visit Diagnoses Date Provider Providers Copied on Encounter Office/Outpt New - Low MDM - Time [facility], [address] [place], [place] [address]uite [address] [place] [address], [id number], [place] tel:[phone] [facility] abnormal response to sounds (chief complaint) dizziness (chief complaint) throat sensation (chief complaint) Sensorineural hearing loss (SNHL) of left ear with restricted hearing of right earDizzinessL aryngopharyng eal reflux (LPR) 2 [place]. [address] [facility], [address] [place] [address], [id number], [place]. tel:[phone] Family History Family Member Type Diagnosis Age At Onset Problem (finding) Family history of malignant neoplasm of thyroid Problem (finding) Family history of Heari ng disorder Problem (finding) Family history of Renal disease Problem (finding) Family history of Thyro id disorder Payers Payer name Insurance type Covered democrat ID Authoriza tion(s) Medicare - Part B Carriers [id number] [facility] [id number] Social History Type Description Quantity Date Captured [...] neck for pain issues. His PCP in [place] ordered an MRI which he has had [...] He was diagnosed with laryngopharyngeal reflux in [facility] and has been taking omeprazole daily [...] neck for pain issues. His PCP in [place] ordered an MRI which he has had [...]
--- OUTSIDE RECORDS SUMMARY | 2024-01-19 15:46 | XMS_ITS | Referral Summary ---
Author Organization [facility] Address [address] [place] [address] Care Team Providers Care Care Management Associate Name Role Phone NeetujennieanicetoFlor PATRIZIA Primary Care Provider Allergies Active Allergy Reactions [...] Mass Index 25.64 04/15/2022925 EST Functional Status * Because of a physical, mental, or emotional condition, does this person have difficulty doing errands alone such as visiting a doctor's office or shopping? Answer Date of Assessment Author No 12/21/2020 11:12 EDT Mental Status * Because of a physical, mental, or emotional condition, does this person have serious difficulty concentrating, remembering, or making decisions? Answer Entry Date Author No 04/15/2022 9:22 EST Plan of Treatment Not on file Insurance [facility] MEDICARE Care Teams Care Management Associate Relationship Specialty Start Date End Date Flor St FNP PCP - General 09/16/19
--- OUTSIDE RECORDS SUMMARY | 2024-01-19 15:46 | XMS_ITS | Encounter Summary ---
Author Organization [facility] Address [address] [place] [address] Care Team Providers Care Hhas Name Role Phone Flor St Primary Care Provider [phone] Reason for Visit * Reason Comments Follow-up Encounter Details Date Type Department Care Team (Late st Contact Info) Description 04/25/2022 8:00 EST Telemedicine [facility] Hematology & Oncology - [facility] [address] [place] [address] Flory Fried PA-C [address] [facility], [address] [place] [address] Rib pain (Primary Dx); Family [...] 04/15/2022 9:22 EST documented in this encounter Patient Instructions * Patient Instructions* Flory Fried PA-C - 04/25/2022 8:00 EST Ayan Robbins, it was so nice to see you again. As discussed during our visit, my recommendations are as follows: - stop Xarelto - come to the [facility] lab for the monoclonal protein diagnostic panel (blood draw) - once results received, I will advise whether you should follow up with your PCP or need a referral to one of my hematology colleagues as well - follow up with your PCP as planned next week. I will send them my note Feel free to contact me via [employer] or call the office if you have any questions/concerns. Thanks, Flory Fried PA-C documented in this encounter Progress Notes * Flory Fried PA-C - 04/25/2022 0800 EST Thrombosis & Hemostasis Program ([facility]) Follow Up Visit Date of Service: 04/25/2022 [...] location of the patient : home in [place] The location of the provider: private home office in [place] Participants: patient, provider Subjective: Jose Manuel presents to the [facility] clinic today for short term follow up. Since last visit, City Letter Carrier al with updates- per discussion with Radiologist at [facility] [place] [facility] his initial CTA Chest diagnosing the PEwas found to be artifact instead on second read last week. City Letter Carrier advised him to stop Xarelto but he weaned himself off. Symptoms are unchanged from previous visit. Continues with bilateral rib pain. Denies SOB, CAT, LE edema/pain/warmth/redness. Reviewed discussion at the case conference yesterday re: multiple myeloma evaluation that Jose Manuel is requesting. Will order a monoclonal protein diagnostic panel and he will have this drawn at [facility]. Says he learned since last visit that [...] NRBC Anemia Lab Results Component Value Date [id number] 490 12/20/2019 Coagulation No results found for: PROTIME, INR, PTT, PATT50, DDIMER, ANTITHROM, [id number], FACTVIIIFA8, PROTCCLOT, PROTSCLOT, CARDIOLIGGC, CARDIOLIGMC, DRVVT, PROTHRPROGMU Imaging: Pending receipt of Addended CTA Chest report from 01/18/22 (requested from [facility] [place] [facility]) See CTA Chest report 01/25/23 from [facility] [place] [facility] in Scans (unchanged) Assessment: Jose Manuel Robbins is a 71 year old male PMHx relevant for HLD and cervical instability who initially presented to the [facility] clinic on 04/15/22 as referred by his PCP's office regarding terminal manager managementfor a PE diagnosed in Dec 2021. In reviewing Jose Manuel' symptoms, labs, imaging, and course of anticoagulation, I was skeptical about the accuracy of the PE diagnosis. His symptoms consist of bilateral rib pain since Oct 2021 which is largely unchanged despite almost 3 months of anticoagulation. During the ED visit at [facility] [place] [facility] 01/18/22 when the PE was [...] 01/18/[address] Love Lagunas (Radioligist at [facility] [place] [facility]) and asked for a secondary [...] documented as of this encounter Care Teams Hhas Relationship Specialty Start Date End Date Flor St FNP PCP - General 09/16/19 documented as of this encounter
--- OUTSIDE RECORDS SUMMARY | 2024-01-19 15:46 | XMS_ITS ---
Author Organization Unknown Address [address] [place] [address] [phone] Phone Care Team Providers Care Insecticide Expert Name Role Phone RANGEL DA SILVA Attending Unavailable Results US ABD LIMITED ONE ORGAN - C ompleted: 02/07/2022 09:55 LOINC: [facility] [place], [place] [address] PACS TRACK LAYING EQUIPMENT OPERATOR REPORT Patient Name: KIM MCKINLEY MRN: Sex: : Age: [id number] M [id number] Account: Accession: Admit: StayType: [id number] 02/07/2022 O/P Ordered: Order ID: Submitted: Ordering Provider: 02/07/2022 09:18 [id number] [facility] REKHA MULTANI Completed: Technologist: Resulted: 02/07/2022 09:55 [...] em Smoking History Never smoker (Never Smoked) [id number] SNOMED CT Sex Male Medications Medication Start Date End Date Route Frequency Dose Code Code System Medication Instructions Home Meds Xarelto 15MG Oral Tablet 01/18/2022 Unknown ORAL TWICE A DAY 1 TABLET 9331477 RxNorm TAKE 1 TABLET ORAL TWICE A DAY Xarelto 20MG Oral Tablet 01/18/2022 Unknown ORAL DAILY 1 TABLET [id number] RxNorm TAKE 1 TABLET ORAL DAILY Hospital [...]
--- OUTSIDE RECORDS SUMMARY | 2024-01-19 15:46 | XMS_ITS | Encounter Summary ---
Author Organization [facility] Address [address] [place] [address] Care Team Providers Care Lawn Sprinkler Installer Name Role Phone Flor St Primary Care Provider [phone] Reason for Visit * Reason Comments New Patient Visit * Consult (Routine) - Authorization Not Required Specialty Diagnoses / Procedures Referred By Contlizzie t Referred To Contact Diagnoses Pulmonary embolism (HCC-CMS) Jen Herman, CEREAL POPPER [address] [place] [address] Phone: tel: fax: [facility] Hematology & Oncology [address] [address] Phone: tel: fax: Referral ID Status Reason Start Date Expiration Date Visits Requested Visits Authorized [id number] Authorization Not Required 1 1 Encounter Details Date Type Department Care Team (Late st Contact Info) Description 04/15/2022 9:20 EST Office Visit [facility] Hematology & Oncology [address] [phone] Flory Fried PA-C [address] [place] [address] [address] [place] [address] Pulmonary embolism without acute cor [...] Time Taken Comments Blood Pressure 168/80 04/15/2022 09 EST Pulse 60 04/15/2022 09 EST Temperature 36.9 ??C (98.4 ??F) 04/15/2022 09 EST Respiratory Rate 16 04/15/2022 09 EST Oxygen Saturation 99% 04/15/2022 09 EST Inhaled Oxygen Concentration - - Weight 83.8 kg (184 lb 12.8 oz) 04/15/2022 09 EST Height 180.8 cm (5' 11.18) 04/15/2022 09 EST Body Mass Index 25.64 04/15/2022 09 EST documented in this encounter Functional Status * Because of [...] 04/15/2022 9:22 EST documented in this encounter Progress Notes * Flory Fried PA-C - 04/15/2022 09 EST Thrombosis & Hemostasis Program ([facility]) Consult H&P Date of Service: 04/15/2022 PCP: Flor St Referring MD: Jen Herman Reason for Visit: possible PE HPI: Jose Manuel Robbins is a 71 year old male PMHx relevant for HLD and cervical instability who presents tothe [facility] as referred by his PCP's office 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 [...] and unremarkable. He states he went to [facility] ED on 01/18/23 due to the [...] SCC of cheek- sees Dermatology annually in [place] (missed Feb 2022) - no prior Hx of VTE Family Hx: - father: multiple myeloma, kidney issues. Phlebitis after long stay in the hospital (before MM Dx,about 50 yrs old). No snf issues- worse compression socks - mother: of thyroid cancer - 1 brother: has [employer]- effects his extremitites. WC bound. Prostate CA. Was tested for an MM marker and found to have it but not diagnosed with multiple myeloma. Jose Manuel adds my brother told me he wished he never found out about it - 1 sister: thyroid issues, on medication - MGM: [place] - MGF: in sleep in his 90s - PGM: [place] - PGF: emphysema work-related - Jose Manuel [...] NRBC Anemia Lab Results Component Value Date [id number] 490 12/20/2019 Coagulation No results found for: PROTIME, INR, PTT, PATT50, DDIMER, ANTITHROM, OMJPEFQOOK7R, FACTVIIIFA8, PROTCCLOT, PROTSCLOT, CARDIOLIGGC, CARDIOLIGMC, DRVVT, PROTHRPROGMU Imaging: *Refer to scans for imaging from [facility]* Assessment: Jose Manuel Robbins is a 71 year old male PMHx relevant for HLD and cervical instability [facility] regarding snf management for a PE diagnosed inNov 2021. He report bilateral rib pain since Oct 2021 and had an ED evaluation on 01/18/22 at [facility]. During this evaluation, he had a negative D Dimer, unremarkable CBCd, CMP, and a CTA Chest with a RLL segmental PE. He has been on therapeutic Xarelto (with load) since 01/18/22 (almost 3 months) without any change in his symptoms. He had a repeat CTA Chest at [facility] on 01/25/23 with no PE. I [...] discuss his scans directly with a Radiologist Negrita. If this is truly a PE, I agree it would likely be unprovoked as I do not identify a strong enough trigger within 3 months of symptom onset. I doubt hereditary thrombophilia as his father's phlebitis sounds provoked in the setting of a hospitalization. I do hesitate to commit him to snf secondary prevention with anticoagulation (typically recommended to [...] for now - will contact Radiology at [facility] to discuss 01/18/22 CTA Chest - [...] or concerns. I can be reached at [phone]. Thank you. Flory Fried PA-C I spent a total of 65 minutes on the date of this encounter meeting with the patient and reviewing documentation/coordinating care as described in the above note. ADDENDUM 04/15/21: Paged Radiology at [facility]- no response. ADDENDUM 04/16/21: Paged Radiology at [facility] and reviewed case with Dr. Love Lagunas. She reviewed the 01/18/22 CTA Chest during our phone call. Upon her investigation, she stated there appeared to be linear artifact that mimicked the appearance of a PE but extends beyond the end/edge of the pulmonary artery so she would favor artifact over PE. Clinical Rn Liaison asked her to please addend the report [...] pulmonale, unspecified chronicity, unspecified pulmonary embolism type ([facility])- Primary documented in this encounter Historical Medications * This list may reflect changes made after this encounter. UNABLE TO FIND 1 Tablet 3 times daily. Med Name: Jenny Morris simvastatin (ZOCOR) 10 mg tablet Take 20 mg by mouth every evening. rivaroxaban (XARELTO ORAL) Take 20 mg by mouth daily. 04/25/2022 added in this encounter Care Teams Lawn Sprinkler Installer Relationship Specialty Start Date End Date Flor St FNP PCP - General 09/16/19 documented as of this encounter
--- OUTSIDE RECORDS SUMMARY | 2024-01-19 15:46 | XMS_ITS ---
Author Organization Unknown Address [address] [place] [address] [phone] Phone Care Team Providers Care Ice Cream Scooper Name Role Phone VINOD Barrera Attending Unavailable RANGEL DA SILVA Primary Unavailable Social History Type Status Start Date End Date Code Code Syst em Smoking History Never smoker (Never Smoked) [id number] SNOMED CT Sex Male Medications Medication Start Date End Date Route Frequency Dose Code Code System Medication Instructions Home Meds Xarelto 15MG Oral Tablet 01/18/2022 Unknown ORAL TWICE A DAY 1 TABLET 7427675 RxNorm TAKE 1 TABLET ORAL TWICE A DAY Xarelto 20MG Oral Tablet 01/18/2022 Unknown ORAL DAILY 1 TABLET 1963818 RxNorm TAKE 1 TABLET ORAL DAILY Hospital Discharge Instructions Should you have any questions prior to discharge, please contact a member of your healthcare team. If you have left the hospital and have any questions, please contact your primary care physician. Reason For Referral No Data Found Procedures Procedure Name Date Status Code Code Systangelica millard Colorectal Cancer Screening; Colonoscopy On Individual At [...]
--- OUTSIDE RECORDS SUMMARY | 2024-01-19 15:46 | XMS_ITS ---
Author Organization Unknown Address [address] [place] [phone] Phone Care Team Providers Care Advertising Space Clerk Name Role Phone REMINGTON BRENDEN Attending Unavailable Results D-DIMER - Collect Date/Time: 08/02/2022 10:25 [facility] ID: [id number] - [id number] [address] [place], [place], [address] LOINC: 75363-5 Test Value Unit Reference Range Code Code System Flag D-DIMER 0.48 mg/L L=0.19 H=0.50 42604-8 LOINC Social History Type Status Start Date End Date Code Code Syst em Smoking History Never smoker (Never Smoked) 312170053 SNOMED CT Sex Male Medications Medication Start Date End Date Route Frequency Dose Code Code System Medication Instructions Home Meds Xarelto 15MG Oral Tablet 01/18/2022 Unknown ORAL TWICE A DAY 1 TABLET 2964089 RxNorm TAKE 1 TABLET ORAL TWICE A DAY Xarelto 20MG Oral Tablet 01/18/2022 Unknown ORAL DAILY 1 TABLET 4007663 RxNorm TAKE 1 TABLET ORAL DAILY Hospital [...] Code Code Sys tem Localized edema 08/02/2022 [id number] SNOMED-CT Personal Care Team Section Performer Name Performer Role Active Date Inactive Da te
--- OUTSIDE RECORDS SUMMARY | 2024-01-19 15:47 | XMS_ITS | Encounter Summary ---
Author Organization [facility] Address [address] [place] [address] Care Team Providers Care Stakes Player Name Role Phone Alma Rosa Flor ACHARYA Primary Care Provider [phone] Encounter Details Date Type Department Care Team (Late st Contact Info) Description 01/07/2022 Lab Requisition [facility] Pathology & Laboratory Medicine - [address] [address] Outr Resulting Lab, Provider Social History Tobacco [...] 12/21/2020 11:12 EDT documented in this encounter Plan of Treatment Not on file documented as of this encounter Procedures Procedure Name Priority Date/Time Associated Diagnosis Comments LYME AB Routine 01/07/2022 11:35 EST HIGH SENSITIVITY C-REACTIVE PROTEIN (CARDIOVASCULAR DISEASE) Routine 01/07/2022 11:35 EST documented in this encounter Results * LYME AB (01/07/2022 11:35 EST) Pathologist [facility] Lyme Ab Negative Negative 01/08/2022 10:22 EST [facility] Blood VENOUS BLOOD / Unknown 01/07/2022 11:35 EST 01/07/2022 21:15 EST us Provider Outr Resulting Lab IMMUNOLOGY AND SEROL OGY ORDERABLES Final Result Performing Organization Address [facility] de Phone Number [facility] [address] [place] [address] * HIGH SENSITIVITY C-REACTIVE PROTEIN (CARDIOVASCULAR DISEASE) (01/07/2022 11:35 EST) [facility] High Sensitivity CRP <0.34 See Note mg/L 01/07/2022 21:39 EST [facility] Comment: Reference Range: ??Low Risk: ? <1.0 mg/L ??Average Risk: ?? 1.0 - 3.0 mg/L ??High Risk: ?>3.0 mg/L ??Indeterminate*: >10.0 mg/L ??*May be an indication of another source of inflammation or infection Blood VENOUS BLOOD / Unknown 01/07/2022 11:35 EST 01/07/2022 21:15 EST us Provider Outr Resulting Lab CHEMISTRY & BLOOD GA S ORDERABLES Final Result Performing Organization Address [facility] Co de Phone Number [facility] [address] [place] [address] documented in this encounter Visit Diagnoses Not on filedocumented in this encounter Care Teams Stakes Player Relationship Specialty Start Date End Date Flor St FNP PCP - General 09/16/19 documented as of this encounter
--- OUTSIDE RECORDS SUMMARY | 2024-01-19 15:47 | XMS_ITS | Encounter Summary ---
Author Organization [facility] Address [address] [place] [address] Care Team Providers Care Rn Utilization Management Um Name Role Phone Unknown, Provider MD Primary Care Provider Unava ilable Reason for Visit * Reason Comments Pre-procedure Encounter Details Date Type Department Care Team (Late st Contact Info) Description 09/13/2019 10:00 EDT Nurse Only [facility] Testing Department [address] [place] [address] Nurse, [facility] Mobile Testing Encounter for screening for other [...] COVID-19 TESTING (09/13/2019 9:51 EDT) Performing Lab [facility] 09/15/2019 13:12 EDT [facility] Comment: Please indicate the Triage Tier2 Test performed or referred by The [address] [address] COVID-19 rt-PCR Result Not Detected Negative 09/15/2019 13:12 EDT [facility] Comment: 2019-novel Coronavirus (2019-nCoV) [...] in accordance with CLIA regulations, College [employer] [place] [employer] (CAP) guidelines (May 13, 2019), and FDA guidance (Apr 24, 2019). This test is only for use under the Food and Drug Administration's Emergency Use Authorization. 09/13/2019 9:51 EDT 09/13/2019 13:29 EDT Jose Manuel Christine MD MICROBIOLOGY - GENERAL JAMESON SONG Final Result [facility] [address] [place] [address] documented in this encounter Visit Diagnoses Diagnosis Encounter for screening for other viral diseases- Primary documented in this encounter Care Teams Rn Utilization Management Um Relationship Specialty Start Date End Date Unknown, Provider, PCP - General 09/13/19 09/15/19 documented as of this encounter
--- OUTSIDE RECORDS SUMMARY | 2024-01-19 15:47 | XMS_ITS | Encounter Summary ---
Author Organization [facility] Address [address] [place] [address] Care Team Providers Care Stable Hand Name Role Phone Reynold Cheng MD Primary Care Provider + Unknown, Provider Primary Care Provider Flor Bartlett Primary Care Provider [phone] Encounter Details Date Type Department Care Team (Late st Contact Info) Description 06/30/2019 Lab Requisition [facility] Pathology & Laboratory Medicine - [facility] [address] [place] [address] Outr Resulting Lab, Provider Social History Tobacco [...] Unknown 06/30/2019 14:03 EDT 06/30/2019 21:57 EDT us Provider Outr Resulting Lab MICROBIOLOGY - GENER AL ORDERABLES Final Result Performing Organization Address [facility] Co de Phone Number [facility] [address] [place] [address] * COVID-19 TESTING (06/30/2019 14:03 EDT) COVID-19 rt-PCR Result Negative Negative 2019 20:46 EDT [facility] Comment: Negative results do not preclude 2019-nCoV infection and should not be used as the sole basis for treatment or other patient management decisions. Negative results must be combined with clinical observations, patient history, and epidemiological information. This test was developed and its performance characteristics determined by [facility]. It has not been cleared or [...] by the FDA Performed on the [employer] Fast. Performing Lab [facility] Lab 2019 20:46 EDT [facility] Swab ENTIRE NASOPHARYNX / Unknown 06/30/2019 14:03 EDT 06/30/2019 21:57 EDT us Provider Outr Resulting Lab MICROBIOLOGY - GENER AL ORDERABLES Final Result Performing Organization Address City/[facility]/ZIP Co de Phone Number [facility] [address] [place] [address] documented in this encounter Visit Diagnoses Not on filedocumented in this encounter Care Teams Stable Hand Relationship Specialty Start Date End Date Reynold Cheng MD [address] [facility] [place] [address] PCP - General 12/15/15 09/12/19 Unknown, Provider, [address] [facility] [place] [address] PCP - General 09/13/19 09/15/[address] FNP [address] [facility] [place] [place] [address] PCP - General 09/16/19 documented as of this encounter
--- OUTSIDE RECORDS SUMMARY | 2024-01-19 15:47 | XMS_ITS | Encounter Summary ---
Author Organization [facility] Address [address] [place] [address] Care Team Providers Care Secondary English Teacher Name Role Phone Unknown, Provider Primary Care Provider Unava ilable Encounter Details Date Type Department Care Team (Late st Contact Info) Description 12/11/2015 Results Only [facility] [phone] Ruth Sousa MD [address] [facility] [address] [place] [address] Social History Tobacco Use Types Packs/Day Years [...] ? KIM MCKINLEY ? Accession #: ? [id number] ? : ? 1950 (Age: 65) ??M [...] epidermis present for evaluation, precluding assessment. ??(Dr. Head)/community health Document reviewed and electronically signed by: MASSIEL [...] (ASCP) 12/13/2015 10:03 AM End of Report [facility] 12/11/2015 9:02 EDT 12/11/2015 9:02 EDT us Ruth Sousa MD PATHOLOGY ORDERABLES Final Resul t [facility] [address] [place] [address] documented in this encounter Visit Diagnoses Not on filedocumented in this encounter Care Teams Secondary English Teacher Relationship Specialty Start Date End Date Unknown, Provider, PCP - General 11/09/09 12/14/15 documented as of this encounter
--- OUTSIDE RECORDS SUMMARY | 2024-01-19 15:47 | XMS_ITS | Encounter Summary ---
Author Organization [facility] Address [address] [place] [address] Care Team Providers Care Haircutter Name Role Phone NeetujennieaniectoFlor PATRIZIA Primary Care Provider Encounter Details Date Type Department Care Team (Late st Contact Info) Description 12/20/2019 Lab Requisition [facility] Pathology & Laboratory Medicine - [address] [address] Outr Resulting Lab, Provider Social History Tobacco [...] 211 - 911 pg/mL 12/20/2019 23:16 EDT [facility] Blood VENOUS BLOOD / Unknown 12/20/2019 11:53 EDT 12/20/2019 22:01 EDT us Provider Outr Resulting Lab CHEMISTRY & BLOOD GA S ORDERABLES Final Result [facility] [address] [place] [address] documented in this encounter Visit Diagnoses Not on filedocumented in this encounter Care Teams Haircutter Relationship Specialty Start Date End Date Flor St FNP PCP - General 09/16/19 documented as of this encounter
--- OUTSIDE RECORDS SUMMARY | 2024-01-19 15:47 | XMS_ITS | Encounter Summary ---
Author Organization [facility] Address [address] [place] [address] Care Team Providers Care Bulldozer Engineer Name Role Phone KiarajenniferanicetoFlor PATRIZIA Primary Care Provider Encounter Details Date Type Department Care Team (Late st Contact Info) Description 12/07/2019 Lab Requisition [facility] Pathology & Laboratory Medicine - [address] [address] Outr Resulting Lab, Provider Social History Tobacco [...] Lyme Ab Negative Negative 12/08/2019 10:02 EDT [facility] Comment:New 3rd generation a ssay in use 08/04/2019 Blood VENOUS BLOOD / Unknown 12/06/2019 10:35 EDT 12/07/2019 16:46 EDT us Provider Outr Resulting Lab IMMUNOLOGY AND SEROL OGY ORDERABLES Final Result [facility] [address] [place] [address] documented in this encounter Visit Diagnoses Not on filedocumented in this encounter Care Teams Bulldozer Engineer Relationship Specialty Start Date End Date Flor St FNP PCP - General 09/16/19 documented as of this encounter
--- OUTSIDE RECORDS SUMMARY | 2024-01-19 15:47 | XMS_ITS | Encounter Summary ---
Author Organization [facility] Address [address] [place] [address] Care Team Providers Care Gem Expert Name Role Phone NeetujennieanicetoNancyangelica ACHARYA Primary Care Provider [phone] Reason for Visit * (Routine/Next Available) - Receiving Office to Obtain Authorization Specialty Diagnoses / Procedures Referred By Sylvester t Referred To Contact Procedures XR OUTSIDE IMAGES CHEST Imaging, External Referral ID Status Reason Start Date Expiration Date Visits Requested Visits Authorized [id number] Receiving Office to Obtain Authorization 01/28/2022 1 1 Encounter Details Date Type Department Care Team (Latest Contact Info) Description 12/18/2021 - 12/18/2021 23:59 EDT Hospital Encounter [facility] Secondary Reads [place] Discharge Disposition: Home [...] on filedocumented in this encounter Care Teams Gem Expert Relationship Specialty Start Date End Date Flor St FNP PCP - General 09/16/19 documented as of this encounter
--- OUTSIDE RECORDS SUMMARY | 2024-01-19 15:47 | XMS_ITS | Encounter Summary ---
Author Organization [facility] Address [address] [place] [address] Care Team Providers Care Parish Visitor Name Role Phone Unknown, Provider Primary Care Provider Unava ilable Encounter Details Date Type Department Care Team (Late st Contact Info) Description 11/06/2009 Results Only [facility] [phone] Ruth Sousa MD [address] [facility] [address] [place] [address] Social History Tobacco Use Types Packs/Day Years [...] ARLEN, KIM Rahman ? Accession #: ? [id number] ? : ? 1950 (Age: 59) ??M ? Collect Date: ? 11/06/2009 ? Location: ? [facility] ? Receive Date: ? 11/08/2009 ? Provider: RUTH SOUSA MD ? Copy to: MIKEL KAROLINA TUCK POINTER ? Final Pathologic Diagnosis: ? Skin of [...] reviewed and electronically signed by: ? Deedee Head, MD ? Report ??Date: 11/13/2009 13:58 ? [...] [facility] 11/06/2009 11/08/2009 17: 30 EDT us Ruth Sousa MD PATHOLOGY ORDERABLES Final Resul t [facility] [address] [place] [address] documented in this encounter Visit Diagnoses Not on filedocumented in this encounter Care Teams Parish Visitor Relationship Specialty Start Date End Date Unknown, Provider, PCP - General 11/09/09 12/14/15 documented as of this encounter
--- OUTSIDE RECORDS SUMMARY | 2024-01-19 15:47 | XMS_ITS | Encounter Summary ---
Author Organization [facility] Address [address] [place] [address] Care Team Providers Care Supervisor Meter Shop Name Role Phone KiarajenniferanicetoFlor PATRIZIA Primary Care Provider Encounter Details Date Type Department Care Team (Late st Contact Info) Description 12/20/2019 Lab Requisition [facility] Pathology & Laboratory Medicine - [address] [address] Outr Resulting Lab, Provider Social History Tobacco [...] ZAHIDA Interpretation Negative Negative 2019 16:55 EDT [facility] Blood VENOUS BLOOD / Unknown 12/20/2019 11:53 EDT 12/20/2019 22:01 EDT Narrative [facility] - 12/21/2019 16:55 EDT Results were obtained with the INOVA NOVA Lite HEp-2 ZAHIDA Kit by indirect immunofluorescence. us Provider Outr Resulting Lab IMMUNOLOGY AND SEROL OGY ORDERABLES Final Result [facility] [address] [place] [address] documented in this encounter Visit Diagnoses Not on filedocumented in this encounter Care Teams Supervisor Meter Shop Relationship Specialty Start Date End Date Flor St FNP PCP - General 09/16/19 documented as of this encounter
--- OUTSIDE RECORDS SUMMARY | 2024-01-19 15:47 | XMS_ITS | Encounter Summary ---
Author Organization [facility] Address [address] [place] [address] Care Team Providers Care Kick Press Setter Name Role Phone Unknown, Provider Primary Care Provider Unava ilable Encounter Details Date Type Department Care Team (Latest Contact Info) Description 12/11/2015 11:28 EDT - 12/11/2015 23:59 EDT Hospital Encounter [address] [address] Unknown, Provider, Discharge Disposition: Home or Self [...] Code Departure Means Destination Home or Self Assisted documented in this encounter Plan of Treatment Not on file documented as of this encounter Visit Diagnoses Not on filedocumented in this encounter Care Teams Kick Press Setter Relationship Specialty Start Date End Date Unknown, Provider, PCP - General 11/09/09 12/14/15 documented as of this encounter
--- OUTSIDE RECORDS SUMMARY | 2024-01-19 15:47 | XMS_ITS | Encounter Summary ---
Author Organization [facility] Address [address] [place] [address] Care Team Providers Care Ems Director Name Role Phone Flor St Primary Care Provider Reason for Visit * Reason Comments Pain * Consult (Routine) - Closed Specialty Diagnoses / Procedures Referred By Sylvester saldana Referred To Contact Orthopedic Surgery Diagnoses Neck pain Flor St FNP Phone: tel: fax: [facility] [place] [address] [address] [place] [address] Phone: tel: fax: Referral ID Status Reason Start Date Expiration Date Visits Re quested Visits Authorized [id number] Closed 1 1 Encounter Details Date Type Department Care Team (Late st Contact Info) Description 12/21/2020 11:00 EDT Office Visit [facility] [place] [address] [place] [address] Nata Monroe PA-C [address] [facility] [place] [address] Neck pain (Primary Dx) Social [...] EDT documented in this encounter Functional Status * [...] 12/21/2020 11:12 EDT documented in this encounter Progress Notes * Nata Monroe PA-C - 12/21/2020 1100 EDT Mr. Robbins is a 70 y.o. 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 [...] identified Assessment: 70 y.o. male with 1. INCINERATOR OPERATOR most likely from degenerative disc and facet [...] may reflect changes made after this encounter. ibuprofen (MOTRIN) 200 mg tablet Take 200 mg by mouth every 6 hours as needed for Pain. LORazepam (ATIVAN) 0.5 mg tablet Take 1 mg by mouth at bedtime as needed. added in this encounter Care Teams Ems Director Relationship Specialty Start Date End Date Flor St FNP PCP - General 09/16/19 documented as of this encounter
--- OUTSIDE RECORDS SUMMARY | 2024-01-19 15:47 | XMS_ITS | Encounter Summary ---
Author Organization [facility] Address [address] [place] [address] Care Team Providers Care Business Management Manager Name Role Phone Flor St Primary Care Provider [phone] Reason for Visit * (Routine) - Receiving Office to Obtain Authorization Specialty Diagnoses / Procedures Referred By Sylvester t Referred To Contact Procedures XR OUTSIDE IMAGES NEURO Unknown, Provider, MD Referral ID Status Reason Start Date Expiration Date Visits Requested Visits Authorized [id number] Receiving Office to Obtain Authorization 07/25/2020 1 1 Encounter Details Date Type Department Care Team (Latest Contact Info) Description 12/20/2019 - 12/20/2019 23:[address] [facility] Secondary Reads [place] Discharge Disposition: Home [...] 16:13 EDT This is a non-reportable exam. us Provider Unknown IMRemy OTHER IMAGING ORDERABLES Final Result documented in this encounter Visit Diagnoses Not on filedocumented in this encounter Care Teams Business Management Manager Relationship Specialty Start Date End Date Flor St FNP PCP - General 09/16/19 documented as of this encounter
--- OUTSIDE RECORDS SUMMARY | 2024-01-19 15:47 | XMS_ITS | Encounter Summary ---
Author Organization [facility] Address [address] [place] [address] Care Team Providers Care Maintenance Director Name Role Phone Unknown, Provider MD Primary Care Provider Unava ilable Encounter Details [...] on filedocumented in this encounter Care Teams Maintenance Director Relationship Specialty Start Date End Date Unknown, Provider, PCP - General 09/13/19 09/15/19 documented as of this encounter
--- OUTSIDE RECORDS SUMMARY | 2024-01-19 15:47 | XMS_ITS | Encounter Summary ---
Author Organization [facility] Address [address] [place] [address] Care Team Providers Care Polymerization Kettle Operator Name Role Phone Flor St Primary Care Provider [phone] Reason for Visit * Reason Comments Sore [...] Referred By Sylvester saldana Referred To Contact Otolaryngology Diagnoses Acute rhinitis Flor St FNP Phone: tel: fax: Jose Manuel Christine MD Phone: tel: fax: Referral ID Status Reason Start Date Expiration Date Visits Re quested Visits Authorized [id number] Closed 1 1 Encounter Details Date Type Department Care Team (Late st Contact Info) Description 09/16/2019 8:30 EDT Office Visit [facility] ENT - [place] [address] [place] [address] Jose Manuel Christine MD [address] [place] [address] [address] [place] [address] LPRD (laryngopharyngeal reflux disease) (Primary Dx) [...] Notes * Jose Manuel Christine MD - 09/16/201930 EDT [address] This is a consult [...] may reflect changes made after this encounter. ubidecarenone (COQ-10 ORAL) Take 200 mg by mouth daily. Cetirizine 10 mg capsule Take 10 mg by mouth daily. omeprazole (PRILOSEC) 20 mg capsule Take 40 mg by mouth daily. added in this encounter Care Teams Polymerization Kettle Operator Relationship Specialty Start Date End Date Flor St FNP PCP - General 09/16/19 documented as of this encounter
--- OUTSIDE RECORDS SUMMARY | 2024-01-19 15:47 | XMS_ITS | Encounter Summary ---
Author Organization [facility] Address [address] [place] [address] Care Team Providers Care Personal Care Service Provider Name Role Phone Unknown, Provider Primary Care Provider Flor Bartlett Primary Care Provider Encounter Details Date Type Department Care Team (Late st Contact Info) Description 09/13/2019 Lab Requisition [facility] Pathology & Laboratory Medicine - [address] [address] Outr Resulting Lab, Provider Social History Tobacco [...] Result NEGATIVE Negative 09/15/2019 10:45 EDT [facility] Comment: 2019-novel Coronavirus (2019-nCoV) not detected [...] in accordance with CLIA regulations, [employer] (CAP) guidelines (May 13, 2019), and FDA guidance (Apr 24, 2019). This test is only for use under the Food and Drug Administration's Emergency Use Authorization. Swab ENTIRE NASOPHARYNX / Unknown 09/13/2019 9:51 EDT 09/13/2019 20:52 EDT us Provider Outr Resulting Lab MICROBIOLOGY - GENER AL ORDERABLES Final Result [place], [place] * COVID-19 TESTING (09/13/2019 9:51 EDT) COVID-19 rt-PCR Result NEGATIVE Negative 09/15/2019 12:36 EDT [facility] Comment: 2019-novel Coronavirus (2019-nCoV) not detected [...] in accordance with CLIA regulations, [employer] (CAP) guidelines (May 13, 2019), and FDA guidance (Apr 24, 2019). This test is only for use under the Food and Drug Administration's Emergency Use Authorization. Performing Lab [facility] 09/15/2019 12:36 EDT [facility] Swab 09/13/2019 9:51 EDT 09/13/2019 20:52 EDT us Provider Outr Resulting Lab MICROBIOLOGY - GENER AL ORDERABLES Final Result [facility] [address] [place], [place] [id number] [place] [address] LABORATORY [place], [place] documented in this encounter Visit Diagnoses Not on filedocumented in this encounter Care Teams Personal Care Service Provider Relationship Specialty Start Date End Date Unknown, Provider, PCP - General 09/13/19 09/15/[address] FNP PCP - General 09/16/19 documented as of this encounter
--- OUTSIDE RECORDS SUMMARY | 2024-01-19 15:47 | XMS_ITS | Encounter Summary ---
Author Organization [facility] Address [address] [place] [address] Care Team Providers Care Urologic Surgeon Name Role Phone Reynold Cheng MD Primary Care Provider + Reason for Visit * Reason Onset Date Comments COVID-19 08/26/2019 Referral Request 08/26/2019 Labs Only 08/26/2019 09/13/19 10:00am Encounter Details Date Type Department Care Team (Late st Contact Info) Description 08/26/2019 Telephone [facility] ENT - [place] [address] [place], [place] [phone] Jose Manuel Christine MD [address] [place] [address] [address] [place] [address] COVID-19; Referral Request; Labs Only (09/13/19 [...] by provider. Routed for testing ordering. Vehicle: [employer] Color: Dark Green Cell #: [phone] Spoke to patient and verbally gave instructions [...] unspecified documented in this encounter Care Teams Urologic Surgeon Relationship Specialty Start Date End Date Reynold Cheng MD [address] [place] [address] BANDAR GUARDADO [id number] PCP - General 12/15/15 09/12/19 documented as of this encounter
--- OUTSIDE RECORDS SUMMARY | 2024-01-19 15:47 | XMS_ITS | Encounter Summary ---
Author Organization [facility] Address [address] [place] [address] Care Team Providers Care Medical Liaison Name Role Phone NeetujennieanicetoFlor PATRIZIA Primary Care Provider [phone] Encounter Details Date Type Department Care Team (Late st Contact Info) Description 12/20/2019 Lab Requisition [facility] Pathology & Laboratory Medicine - [address] [address] Outr Resulting Lab, Provider Social History Tobacco [...] Factor <8.6 <12.0 IU/mL 12/20/2019 22:14 EDT [facility] Blood VENOUS BLOOD / Unknown 12/20/2019 11:53 EDT 12/20/2019 22:00 EDT us Provider Outr Resulting Lab CHEMISTRY & BLOOD GA S ORDERABLES Final Result [facility] [address] [place] [address] documented in this encounter Visit Diagnoses Not on filedocumented in this encounter Care Teams Medical Liaison Relationship Specialty Start Date End Date Flor St FNP PCP - General 09/16/19 documented as of this encounter
--- OUTSIDE RECORDS SUMMARY | 2024-01-19 15:47 | XMS_ITS | Encounter Summary ---
Author Organization [facility] Address [address] [place] [address] Care Team Providers Care Draw In Hand Name Role Phone Flor St Primary Care Provider [phone] Reason for Visit * (Routine) - Receiving Office to Obtain Authorization Specialty Diagnoses / Procedures Referred By Sylvester t Referred To Contact Procedures CT OUTSIDE IMAGES NEURO Unknown, Provider, MD Referral ID Status Reason Start Date Expiration Date Visits Requested Visits Authorized [id number] Receiving Office to Obtain Authorization 07/25/2020 1 1 Encounter Details Date Type Department Care Team (Latest Contact Info) Description 01/06/2020 - 01/06/2020 23:59 EST Hospital Encounter [facility] Secondary Reads [place] Discharge Disposition: [...] 16:14 EDT This is a non-reportable exam. us Provider Unknown IMRemy OTHER IMAGING ORDERABLES Final Result documented in this encounter Visit Diagnoses Not on filedocumented in this encounter Care Teams Draw In Hand Relationship Specialty Start Date End Date Flor St FNP PCP - General 09/16/19 documented as of this encounter
[2024-01-19 21:25] LABS: Creatine Kinase 98 U/L (39-308)
== END 2024-01-19 15:41 | disposition home or self-care (01) ==
LOC: NCHCN 15:40
PROVIDERS: PCP Family Medicine; Visit Provider Family Medicine
DX: M79.18 Myalgia, other site (principal)
CPT/HCPCS: 82550

== ENCOUNTER 2024-02-17 12:12 | Outpatient (REF) | payer MEDICARE, BC, SELFPAY ==
--- OUTSIDE RECORDS SUMMARY | 2024-02-17 12:15 | XMS_ITS ---
Author Organization Unknown Address [address] [place] [phone] Phone Care Team Providers Care Automotive Service Management Teacher Name Role Phone RANGEL DA SILVA Attending Unavailable Results XR CHEST 2V PA AND LATERAL - Completed: 12/18/2021 08:41 [facility]: [facility] RADIOLOGY [place], [place] [address] PACS SQUAD LEADER REPORT Patient Name: KIM MCKINLEY MRN: Sex: : Age: [id number] M 1950 71 Account: Accession: Admit: StayType: [id number] 12/18/2021 E/R Ordered: Order ID: Entered Order: Ordering Provider: 12/18/2021 08:30 [id number] [facility] REKHA MULTANI Completed: Tech Completed: [...] em Smoking History Never smoker (Never Smoked) [id number] SNOMED CT Sex Male Medications Medication Start Date End Date Route Frequency Dose Code Code System Medication Instructions Home Meds Xarelto 15MG Oral Tablet 01/18/2022 Unknown ORAL TWICE A DAY 1 TABLET 6948834 RxNorm TAKE 1 TABLET ORAL TWICE A DAY Xarelto 20MG Oral Tablet 01/18/2022 Unknown ORAL DAILY 1 TABLET [id number] RxNorm TAKE 1 TABLET ORAL DAILY Hospital [...]
--- OUTSIDE RECORDS SUMMARY | 2024-02-17 12:15 | XMS_ITS ---
Author Organization Unknown Address [address] [place] [phone] Phone Care Team Providers Care Basket Operator Name Role Phone ALLISON LOPEZ Registered Nurse Unavailable LUIS CARLOS MAGAÑA Registered Nurse Unavailable DANITA Andreson Attending Unavailable UNLISTED PROVIDER - REQUESTED Xhandoff Un available Results TROPONIN HIGH SENSITIVITY* - Collect Date/Time: 01/18/2022 01:57 [facility] ID: [id number] [address] [place] [address], [address] LOINC: 45203-1 Test Value Unit Reference Range Code Code System Flag TROPONIN HS 8.2 pg/mL L=0.0 H=60.4 Specimen seq. ADM. PTT PARTIAL THROMBOPLASTIN T ALBERT* - Collect Date/Time: 01/18/2022 01:57 [facility] ID: [id number] [address] [place] [address], [id number] LOINC: 49811-0 Test Value Unit Reference Range Code Code System Flag PTT 23.9 seconds L=24.5 H=32.8 56817-5 LOINC L PT PROTHROMBIN TIME* - Colle ct Date/Time: 01/18/2022 01:57 [facility] ID: [id number] [address] [place] [address], [address] LOINC: 5902-2 Test Value Unit Reference Range Code Code System Flag PROTIME 10.1 seconds L=9.3 H=11.4 5902-2 LOINC INR 1.01 L=2.00 H=3.00 97355-7 LOINC L D-DIMER - Collect Date/Time: 01/18/2022 01:57 [facility] ID: [id number] [address] [place], [place], [address] LOINC: 69559-8 Test Value Unit Reference Range Code Code System Flag D-DIMER 0.32 mg/L L=0.19 H=0.50 82398-2 LOINC COMPREHENSIVE METABOLIC PANE L (CMP) - Collect Date/Time: 01/18/2022 01:57 [facility] ID: [id number] [address] [place], [place], [address] LOINC: 92204-8 Test Value Unit Reference Range Code Code [...] H=34 2028-9 LOINC ANION GAP 4.4 mmol/L 48702-4 LOINC CALCIUM SERUM 8.4 mg/dL L=8.2 H=10.2 53385-7 LOINC BILIRUBIN TOTAL 0.3 mg/dL L=0.0 H=1.3 1975-2 LOINC ALK. PHOS. 75 U/L L=46 H=116 6768-6 LOINC SGOT (AST) 26 U/L L=15 H=37 1920-8 LOINC SGPT (ALT) 27 U/L L=12 H=78 1742-6 LOINC TOTAL PROTEIN 7.3 gm/dL L=6.0 H=8.0 2885-2 LOINC ALBUMIN 3.7 gm/dL L=3.4 H=5.0 1751-7 LOINC AGE 71 years eGFR (non-Afr.Amer.) 60 mL/min 25235-2 LOINC eGFR (Afr-Tongan) 73 mL/min 86397-7 LOINC CBC W/ DIFFERENTIAL* - Colle ct Date/Time: 01/18/2022 01:57 [facility] ID: [id number] [address] [place], [place], [address] LOINC: 40511-5 Test Value Unit Reference Range Code Code System Flag WBC 5.06 th/cmm L=5.00 H=10.00 6690-2 LOINC NEUT % 43.9 % L=40.0 H=80.0 LYMPH % 38.5 % L=10.0 H=50.0 MONO % 13.4 % L=2.0 H=12.0 84258-6 LOINC H EOS % 3.2 % L=0.0 H=8.0 BASO % 0.6 % L=0.0 H=3.0 IG % 0.4 % L=0.0 H=1.1 2514-8 LOINC NRBC % 0.0 % L=0.0 H=0.0 47210-1 LOINC NEUT abs count 2.2 th/cmm L=1.6 H=8.4 751-8 LOINC LYMPH abs count 2.0 th/cmm L=1.5 H=4.0 731-0 LOINC MONO abs count 0.7 th/cmm L=0.2 H=1.0 742-7 LOINC EOS abs count 0.2 th/cmm L=0.0 H=0.5 711-2 LOINC BASO abs count 0.0 th/cmm L=0.0 H=0.2 704-7 LOINC IG abs count 0.0 th/cmm L=0.0 H=0.1 31539-6 LOINC NRBC abs count 0.0 mil/cmm L=0.0 H=0.0 39043-6 LOINC RBC 4.30 mil/cmm L=4.30 H=6.20 789-8 [...] CHEST - Compl eted: 01/18/2022 05:18 LOINC: [facility] RADIOLOGY [place], [place] [address] PACS WO[employer] M[employer] UTILITY WORKER REPORT Patient Name: KIM MCKINLEY MRN: Sex: : Age: [id number] M 1950 71 Account: Accession: Admit: StayType: [id number] 01/18/2022 E/R Ordered: Order ID: Submitted: Ordering Provider: 01/18/2022 02:52 [id number] PJ JOHNSON Completed: Technologist: Resulted: 01/18/2022 05:18 [...] CONT RAST - Completed: 01/18/2022 05:18 LOINC: [facility] RADIOLOGY [place], [place] [address] PACS [employer] UTILITY WORKER REPORT Patient Name: KIM MCKINLEY MRN: Sex: : Age: [id number] M 1950 Account: Accession: Admit: StayType: [id number] 01/18/2022 E/R Ordered: Order ID: Submitted: Ordering Provider: 01/18/2022 02:52 [id number] PJ JOHNSON Completed: Technologist: Resulted: 01/18/2022 05:18 [...] AND LATERAL - Completed: 01/21/2022 14:10 LOINC: [facility] RADIOLOGY [place], [place] [address] PACS [employer] UTILITY WORKER REPORT Patient Name: KIM MCKINLEY MRN: Sex: : Age: [id number] M 1950 71 Account: Accession: Admit: StayType: [id number] 01/18/2022 E/R Ordered: Order ID: Submitted: Ordering Provider: 01/18/2022 14:09 [id number] PJ HUTCHINS Completed: Technologist: Resulted: 01/21/2022 14:09 [...] em Smoking History Never smoker (Never Smoked) [id number] SNOMED CT Sex Male Vital Signs Vital Sign Value Unit Lander Value Lander Unit Date/Time Recent/Initial? Code Code System Body Mass Index 24.68 kg/m2 01/18/2022 01:56 Initial 02900 -5 LOINC Systolic Blood Pressure 133 mm[Hg] [...] Saturation 98 % 2021 07:14 Most Recent 23923 -5 LOINC O2 Saturation 95 % 2021 01:56 Initial 25900 -5 LOINC Pulse 58.0 /min 01/18/2022 07:14 Most Recent 8867- 4 LOINC Pulse 68.0 /min 01/18/2022 01:56 Initial 8867- 4 LOINC Respiration 17 /min 01/19/20 05:15 Most Recent 9279- 1 LOINC Respiration 18 /min 01/19/20 01:56 Initial 9279- 1 LOINC Temperature 35.9 Christelle 96.6 F 01/19/20 01:56 Initial 8310- 5 LOINC Weight 82.55 kg 182.00 lbs 01/18/2022 01:56 Initial 91780 -7 [facility] Medications Medication Start Date End Date Route Frequency Dose Code Code System Medication Instructions Home Meds Xarelto 15MG Oral Tablet 01/18/2022 Unknown ORAL TWICE A DAY 1 TABLET 5219873 RxNorm TAKE 1 TABLET ORAL TWICE A DAY Xarelto 20MG Oral Tablet 01/18/2022 Unknown ORAL DAILY 1 TABLET [id number] RxNorm TAKE 1 TABLET ORAL DAILY Hospital [...]
--- OUTSIDE RECORDS SUMMARY | 2024-02-17 12:15 | XMS_ITS ---
Author Organization Unknown Address [address] [place] [phone] Phone Care Team Providers Care Assembly Loader Name Role Phone RANGEL DA SILVA Attending Unavailable Results CT ANGIOGRAPHY CHEST - Compl eted: 01/25/2022 13:54 LOINC: RADIOLOGY [place], [place] [address] PACS ELECTRIC TRUCK OPERATOR REPORT Patient Name: KIM MCKINLEY MRN: Sex: : Age: [id number] M 1950 71 Account: Accession: Admit: StayType: [id number] 01/25/2022 O/P Ordered: Order ID: Submitted: Ordering Provider: 01/25/2022 13:[id number] [facility] ERKHA MULTANI Completed: Technologist: Resulted: 01/25/2022 13:54 MLL [...] Addendum: Upon discussion with BASILIO Fried from [facility] hematology, the images were [...] em Smoking History Never smoker (Never Smoked) [id number] SNOMED CT Sex Male Medications Medication Start Date End Date Route Frequency Dose Code Code System Medication Instructions Home Meds Xarelto 15MG Oral Tablet 01/18/2022 Unknown ORAL TWICE A DAY 1 TABLET 3119815 RxNorm TAKE 1 TABLET ORAL TWICE A DAY Xarelto 20MG Oral Tablet 01/18/2022 Unknown ORAL DAILY 1 TABLET 5856624 RxNorm TAKE 1 TABLET ORAL DAILY Hospital [...]
--- OUTSIDE RECORDS SUMMARY | 2024-02-17 12:15 | XMS_ITS ---
Author Organization Unknown Address [address] [place] [address] [phone] Phone Care Team Providers Care Nail Sticker Name Role Phone RANGEL DA SILVA Attending Unavailable Results US ABD LIMITED ONE ORGAN - C ompleted: 02/07/2022 09:55 LOINC: [facility] [place], [place] [address] PACS GROUND CREWMAN MISSION SUPPORT REPORT Patient Name: KIM MCKINLEY MRN: Sex: : Age: [id number] M [id number] Account: Accession: Admit: StayType: [id number] 02/07/2022 O/P Ordered: Order ID: Submitted: Ordering Provider: 02/07/2022 09:[id number] [facility] REKHA MULTANI Completed: Technologist: Resulted: 02/07/2022 09:55 [...] em Smoking History Never smoker (Never Smoked) 463892046 SNOMED CT Sex Male Medications Medication Start Date End Date Route Frequency Dose Code Code System Medication Instructions Home Meds Xarelto 15MG Oral Tablet 01/18/2022 Unknown ORAL TWICE A DAY 1 TABLET 4413184 RxNorm TAKE 1 TABLET ORAL TWICE A DAY Xarelto 20MG Oral Tablet 01/18/2022 Unknown ORAL DAILY 1 TABLET [id number] RxNorm TAKE 1 TABLET ORAL DAILY Hospital [...]
--- OUTSIDE RECORDS SUMMARY | 2024-02-17 12:16 | XMS_ITS ---
Author Organization Unknown Address [address] [place] [address] [phone] Phone Care Team Providers Care Bull Gang Worker Name Role Phone REMINGTON BRENDEN Attending Unavailable Results D-DIMER - Collect Date/Time: 08/02/2022 10:25 [facility] ID: [id number] - [id number] [address] [place], [place], [address] LOINC: 85132-4 Test Value Unit Reference Range Code Code System Flag D-DIMER 0.48 mg/L L=0.19 H=0.50 81423-4 LOINC Social History Type Status Start Date End Date Code Code Syst em Smoking History Never smoker (Never Smoked) 885921276 SNOMED CT Sex Male Medications Medication Start Date End Date Route Frequency Dose Code Code System Medication Instructions Home Meds Xarelto 15MG Oral Tablet 01/18/2022 Unknown ORAL TWICE A DAY 1 TABLET 2775247 RxNorm TAKE 1 TABLET ORAL TWICE A DAY Xarelto 20MG Oral Tablet 01/18/2022 Unknown ORAL DAILY 1 TABLET 7280163 RxNorm TAKE 1 TABLET ORAL DAILY Hospital [...] Code Code Sys tem Localized edema 08/02/2022 485251998 SNOMED-CT Personal Care Team Section Performer Name Performer Role Active Date Inactive Da te
--- OUTSIDE RECORDS SUMMARY | 2024-02-17 12:16 | XMS_ITS | Encounter Summary ---
Author Organization [facility] Address [address] [place] [address] Care Team Providers Care Raw Sampler Name Role Phone KiarajenniferanicetoFlor PATRIZIA Primary Care Provider Encounter Details Date Type Department Care Team (Late st Contact Info) Description 12/20/2019 Lab Requisition [facility] Pathology & Laboratory Medicine - [address] [address] Outr Resulting Lab, Provider Social History Tobacco [...] ZAHIDA Interpretation Negative Negative 2019 16:55 EDT [facility] Blood VENOUS BLOOD / Unknown 12/20/2019 11:53 EDT 12/20/2019 22:01 EDT Narrative [facility] - 12/21/2019 16:55 EDT Results were obtained with the INOVA NOVA Lite HEp-2 ZAHIDA Kit by indirect immunofluorescence. us Provider Outr Resulting Lab IMMUNOLOGY AND SEROL OGY ORDERABLES Final Result [facility] [address] [place] [address] documented in this encounter Visit Diagnoses Not on filedocumented in this encounter Care Teams Raw Sampler Relationship Specialty Start Date End Date Flor St FNP PCP - General 09/16/19 documented as of this encounter
--- OUTSIDE RECORDS SUMMARY | 2024-02-17 12:16 | XMS_ITS | Encounter Summary ---
Author Organization [facility] Address [address] [place] [address] Care Team Providers Care Blending Operator Name Role Phone Flor St Primary Care Provider [phone] Reason for Visit * Reason Comments New Patient Visit * Consult (Routine) - Authorization Not Required Specialty Diagnoses / Procedures Referred By Contlizzie t Referred To Contact Diagnoses Pulmonary embolism (HCC-CMS) Jen Herman, OFFICIAL GREETER [address] [place] [address] Phone: tel: fax: [facility] Hematology & Oncology [address] [address] Phone: tel: fax: Referral ID Status Reason Start Date Expiration Date Visits Requested Visits Authorized [id number] Authorization Not Required 1 1 Encounter Details Date Type Department Care Team (Late st Contact Info) Description 04/15/2022 9:20 EST Office Visit [facility] Hematology & Oncology [address] [phone] Flory Fried PA-C [address] [place] [address] [address] [place] [address] Pulmonary embolism without acute cor [...] H&P Date of Service: 04/15/2022 PCP: Flor tS Referring MD: Jen Herman Reason for Visit: possible PE HPI: Jose Manuel Robbins is a 71 year old male PMHx relevant for HLD and cervical instability who [facility] as referred by his PCP's office regarding 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 He states he went to [facility] ED on 01/18/23 due to the [...] SCC of cheek- sees Dermatology annually in [place] (missed Feb 2022) - no prior Hx of VTE Family Hx: - father: multiple myeloma, kidney issues. Phlebitis after long stay in the hospital (before MM Dx,about 52 yrs old). No half-way issues- worse compression socks - mother: of [...] NRBC Anemia Lab Results Component Value Date [id number] 12/20/2019 Coagulation No results found for: PROTIME, INR, PTT, PATT50, DDIMER, ANTITHROM, XRGDATIUGX3R, FACTVIIIFA8, PROTCCLOT, PROTSCLOT, CARDIOLIGGC, CARDIOLIGMC, DRVVT, PROTHRPROGMU Imaging: *Refer to scans for imaging from [facility]* Assessment: Jose Manuel Robbins is a 71 year old male PMHx relevant for HLD and [facility] regarding half-way management for a PE diagnosed inNov 2021. He report bilateral rib pain since Oct 2021 and had an ED evaluation on 01/18/22 at [facility]. During this evaluation, he had a negative D Dimer, unremarkable CBCd, CMP, and a CTA Chest with a RLL segmental PE. He has been on therapeutic Xarelto (with load) since 01/18/22 (almost 3 months) without any change in his symptoms. He had a repeat CTA Chest at [facility] on 01/25/23 with no PE. I [...] I do hesitate to commit him to half-way secondary prevention with anticoagulation (typically recommended to [...] for now - will contact Radiology at [facility] to discuss 01/18/22 CTA Chest - [...] above note. ADDENDUM 04/15/21: Paged Radiology at [facility]- no response. ADDENDUM 04/16/21: Paged Radiology at [facility] and reviewed case with Dr. Love Lagunas. She reviewed the 01/18/22 CTA Chest during our phone call. Upon her investigation, she stated there appeared to be linear artifact that mimicked the appearance of a PE but extends beyond the end/edge of the pulmonary artery so she would favor artifact over PE. Ornament Setter asked her to please addend the report [...] pulmonale, unspecified chronicity, unspecified pulmonary embolism type ([facility])- Primary documented in this encounter Historical Medications * This list may reflect changes made after this encounter. UNABLE TO FIND 1 Tablet 3 times daily. Med Name: Jenny Morris simvastatin (ZOCOR) 10 mg tablet Take 20 mg by mouth every evening. rivaroxaban (XARELTO ORAL) Take 20 mg by mouth daily. 04/25/2022 added in this encounter Care Teams Blending Operator Relationship Specialty Start Date End Date Flor St FNP PCP - General 09/16/19 documented as of this encounter
--- OUTSIDE RECORDS SUMMARY | 2024-02-17 12:16 | XMS_ITS | Encounter Summary ---
Author Organization [facility] Address [address] [place] [address] Care Team Providers Care Plunket Nurse Name Role Phone Unknown, Provider Primary Care Provider Unava ilable Encounter Details Date Type Department Care Team (Latest Contact Info) Description 12/11/2015 11:28 EDT - 12/11/2015 23:59 EDT Hospital Encounter [address] [address] Unknown, Provider, Discharge Disposition: Home or Self [...] Code Departure Means Destination Home or Self Shelter documented in this encounter Plan of Treatment Not on file documented as of this encounter Visit Diagnoses Not on filedocumented in this encounter Care Teams Plunket Nurse Relationship Specialty Start Date End Date Unknown, Provider, PCP - General 11/09/09 12/14/15 documented as of this encounter
--- OUTSIDE RECORDS SUMMARY | 2024-02-17 12:16 | XMS_ITS | Encounter Summary ---
Author Organization [facility] Address [address] [place] [address] Care Team Providers Care Nuclear Design Engineer Name Role Phone Flor St Primary Care Provider [phone] Reason for Visit * Reason Comments Sore [...] Expiration Date Visits Re quested Visits Authorized [id number] Closed 1 1 Encounter Details Date Type Department Care Team (Late st Contact Info) Description 09/16/2019 8:30 EDT Office Visit [facility] ENT - [place] [address] [place] [address] Jose Manuel Christine MD [address] [place] [address] [address] [place] [address] LPRD (laryngopharyngeal reflux disease) (Primary [...] daily. added in this encounter Care Teams Nuclear Design Engineer Relationship Specialty Start Date End Date Flor St FNP PCP - General 09/16/19 documented as of this encounter
--- OUTSIDE RECORDS SUMMARY | 2024-02-17 12:16 | XMS_ITS | Encounter Summary ---
Author Organization [facility] Address [address] [place] [address] Care Team Providers Care Blacksmith Apprentice Name Role Phone NeetujennieanicetoFlor PATRIZIA Primary Care Provider Encounter Details Date Type Department Care Team (Late st Contact Info) Description 12/20/2019 Lab Requisition [facility] Pathology & Laboratory Medicine - [address] [address] Outr Resulting Lab, Provider Social History Tobacco [...] Factor <8.6 <12.0 IU/mL 12/20/2019 22:14 EDT [facility] Blood VENOUS BLOOD / Unknown 12/20/2019 11:53 EDT 12/20/2019 22:00 EDT us Provider Outr Resulting Lab CHEMISTRY & BLOOD GA S ORDERABLES Final Result [facility] [address] [place] [address] documented in this encounter Visit Diagnoses Not on filedocumented in this encounter Care Teams Blacksmith Apprentice Relationship Specialty Start Date End Date Flor St FNP PCP - General 09/16/19 documented as of this encounter
--- OUTSIDE RECORDS SUMMARY | 2024-02-17 12:16 | XMS_ITS | Encounter Summary ---
Author Organization [facility] Address [address] [place] [address] Care Team Providers Care Communication Technician Name Role Phone Alma Rosa Flor ACHARYA Primary Care Provider Encounter Details Date Type Department Care Team (Late st Contact Info) Description 08/29/2023 Lab Requisition [facility] Pathology & Laboratory Medicine - [address] [address] Outr Resulting Lab, Provider Social History Tobacco [...] PSA 1.3 <=6.5 ng/mL 08/29/2023 23:12 EDT [facility] Blood VENOUS BLOOD / Unknown 08/29/2023 10:40 EDT 08/29/2023 21:41 EDT Narrative [facility] - 08/29/2023 23:12 EDT NOTE: Serum PSA concentration should not be interpreted as absolute evidence for the presence or absence of malignant disease. Assayed on [employer] XPT using chemiluminescent technology.??Values obtained by using different assay methods cannot be used interchangeably. us Provider Outr Resulting Lab CHEMISTRY & BLOOD GA S ORDERABLES Final Result [facility] [address] [place] [address] documented in this encounter Visit Diagnoses Not on filedocumented in this encounter Care Teams Communication Technician Relationship Specialty Start Date End Date Flor St FNP PCP - General 09/16/19 documented as of this encounter
--- OUTSIDE RECORDS SUMMARY | 2024-02-17 12:16 | XMS_ITS | Encounter Summary ---
Author Organization [facility] Address [address] [place] [address] Care Team Providers Care Family Service Center Director Name Role Phone Flor St Primary Care Provider Reason for Visit * Reason Comments Follow-up Encounter Details Date Type Department Care Team (Late st Contact Info) Description 04/25/2022 8:00 EST Telemedicine [facility] Hematology & Oncology - [facility] [address] [place] [address] Flory Fried PA-C [address] [facility] [place] [address] Rib pain (Primary Dx); Family [...] - stop Xarelto - come to the [facility] lab for the monoclonal protein diagnostic panel (blood draw) - once results received, I will advise whether you should follow up with your PCP or need a referral to one of my hematology colleagues as well - follow up with your PCP as planned next week. I will send them my note Feel free to contact me via [employer] or call the office if you have any questions/concerns. Thanks, Flory Fried PA-C documented in this encounter Progress Notes * Flory Fried PA-C - 04/25/2022 0800 EST Thrombosis & Hemostasis Program ([facility]) Follow Up Visit Date of Service: [...] location of the patient : [place] The location of the provider: private [place] Participants: patient, provider Subjective: Jose Manuel presents to the [facility] clinic today for short term follow up. Since last visit, Buyer al with updates- per discussion with Radiologist at [facility] his initial CTA Chest diagnosing the PEwas found to be artifact instead on second read last week. Buyer advised him to stop Xarelto but he weaned himself off. Symptoms are unchanged from previous visit. Continues with bilateral rib pain. Denies SOB, CAT, LE edema/pain/warmth/redness. Reviewed discussion at the case conference yesterday re: multiple myeloma evaluation that Jose Manuel is requesting. Will order a monoclonal protein diagnostic panel and he will have this drawn at [facility]. Says he learned since last visit that [...] NRBC Anemia Lab Results Component Value Date [id number] 12/20/2019 Coagulation No results found for: PROTIME, INR, PTT, PATT50, DDIMER, ANTITHROM, SOOACSXEZT7L, FACTVIIIFA8, PROTCCLOT, PROTSCLOT, CARDIOLIGGC, CARDIOLIGMC, DRVVT, PROTHRPROGMU Imaging: Pending receipt of Addended CTA Chest report from 01/18/22 (requested from [facility]) See CTA Chest report 01/25/23 from [facility] in Scans (unchanged) Assessment: Jose Manuel Robbins is a 71 year old male PMHx relevant for HLD and cervical instability who initially presented to the [facility] clinic on 04/15/22 as referred by his PCP's office regarding continuing education instructor managementfor a PE diagnosed in Dec 2021. In reviewing Jose Manuel' symptoms, labs, imaging, and course of anticoagulation, I was skeptical about the accuracy of the PE diagnosis. His symptoms consist of bilateral rib pain since Oct 2021 which is largely unchanged despite almost 3 months of anticoagulation. During the ED visit at [facility] 01/18/22 when the PE was reported on [...] 01/18/[address] Love Lagunas (Radioligist at [facility]) and asked for a secondary read. Per [...] documented as of this encounter Care Teams Family Service Center Director Relationship Specialty Start Date End Date Flor St FNP PCP - General 09/16/19 documented as of this encounter
--- OUTSIDE RECORDS SUMMARY | 2024-02-17 12:16 | XMS_ITS | Clinical Summary ---
Author Organization [facility] Address [address] [place] [address] Care Team Providers Care Pipeline Executive Name Role Phone NeetujennieanicetoFlor PATRIZIA Primary Care [...] (1 - 1-dose 75+ series) 07/02/2027 Insurance [facility] Address: [address] [phone] MEDICARE Care Teams Pipeline Executive Relationship Specialty Start Date End Date Flor St FNP PCP - General 09/16/19
--- OUTSIDE RECORDS SUMMARY | 2024-02-17 12:16 | XMS_ITS | Encounter Summary ---
Author Organization [facility] Address [address] [place] [address] Care Team Providers Care Card Tape Converter Operator Name Role Phone KiarajenniferanicetoFlor PATRIZIA Primary Care Provider [phone] Encounter Details Date Type Department Care Team (Late st Contact Info) Description 12/07/2019 Lab Requisition [facility] Pathology & Laboratory Medicine - [address] [address] Outr Resulting Lab, Provider Social History Tobacco [...] Lyme Ab Negative Negative 12/08/2019 10:02 EDT [facility] Comment:New 3rd generation a ssay in use 08/04/2019 Blood VENOUS BLOOD / Unknown 12/06/2019 10:35 EDT 12/07/2019 16:46 EDT us Provider Outr Resulting Lab IMMUNOLOGY AND SEROL OGY ORDERABLES Final Result [facility] [address] [place] [address] documented in this encounter Visit Diagnoses Not on filedocumented in this encounter Care Teams Card Tape Converter Operator Relationship Specialty Start Date End Date Flor St FNP PCP - General 09/16/19 documented as of this encounter
--- OUTSIDE RECORDS SUMMARY | 2024-02-17 12:16 | XMS_ITS | Encounter Summary ---
Author Organization [facility] Address [address] [place] [address] Care Team Providers Care Manager It Security Name Role Phone NeetujennieanicetoNancyangelica ACHARYA Primary Care Provider [phone] Reason for Visit * (Routine/Next Available) - Receiving Office to Obtain Authorization Specialty Diagnoses / Procedures Referred By Sylvester t Referred To Contact Procedures XR OUTSIDE IMAGES CHEST Imaging, External Referral ID Status Reason Start Date Expiration Date Visits Requested Visits Authorized [id number] Receiving Office to Obtain Authorization 01/28/2022 1 1 Encounter Details Date Type Department Care Team (Latest Contact Info) Description 12/18/2021 - 12/18/2021 23:59 EDT Hospital Encounter [facility] Center Secondary Reads [place] Discharge [...] on filedocumented in this encounter Care Teams Manager It Security Relationship Specialty Start Date End Date Flor St FNP PCP - General 09/16/19 documented as of this encounter
--- OUTSIDE RECORDS SUMMARY | 2024-02-17 12:16 | XMS_ITS | Encounter Summary ---
Author Organization [facility] Address [address] [place] [address] Care Team Providers Care Optometric Technologist Name Role Phone Unknown, Provider Primary Care Provider Flor Bartlett Primary Care Provider Encounter Details Date Type Department Care Team (Late st Contact Info) Description 09/13/2019 Lab Requisition [facility] Pathology & Laboratory Medicine - [address] [address] Outr Resulting Lab, Provider Social History Tobacco [...] rt-PCR Result NEGATIVE Negative 09/15/2019 10:45 EDT [facility] Comment: 2019-novel Coronavirus (2019-nCoV) not detected [...] in accordance with CLIA regulations, College of [employer] (CAP) guidelines (May 13, 2019), and FDA guidance (Apr 24, 2019). This test is only for use under the Food and Drug Administration's Emergency Use Authorization. Swab ENTIRE NASOPHARYNX / Unknown 09/13/2019 9:51 EDT 09/13/2019 20:52 EDT us Provider Outr Resulting Lab MICROBIOLOGY - GENER AL ORDERABLES Final Result [place] * COVID-19 TESTING (09/13/2019 9:51 EDT) COVID-19 rt-PCR Result NEGATIVE Negative 09/15/2019 12:36 EDT [facility] Comment: 2019-novel Coronavirus (2019-nCoV) not detected [...] in accordance with CLIA regulations, College of [employer]ologists (CAP) guidelines (May 13, 2019), and FDA guidance (Apr 24, 2019). This test is only for use under the Food and Drug Administration's Emergency Use Authorization. Performing Lab [facility] 09/15/2019 12:36 EDT [facility] Swab 09/13/2019 9:51 EDT 09/13/2019 20:52 EDT us Provider Outr Resulting Lab MICROBIOLOGY - GENER AL ORDERABLES Final Result [facility] [address] [place], [place] [id number] [place] [address] LABORATORY [place], [place] documented in this encounter Visit Diagnoses Not on filedocumented in this encounter Care Teams Optometric Technologist Relationship Specialty Start Date End Date Unknown, Provider, PCP - General 09/13/19 09/15/[address] FNP PCP - General 09/16/19 documented as of this encounter
--- OUTSIDE RECORDS SUMMARY | 2024-02-17 12:16 | XMS_ITS | Encounter Summary ---
Author Organization [facility] Address [address] [place] [address] Care Team Providers Care Navy Material Inspector Name Role Phone Reynold Cheng MD Primary Care Provider + Reason for Visit * Reason Onset Date Comments COVID-19 08/26/2019 Referral Request 08/26/2019 Labs Only 08/26/2019 09/13/19 10:00am Encounter Details Date Type Department Care Team (Late st Contact Info) Description 08/26/2019 Telephone [facility] ENT - [place] [address] [place], [place] [id number] Jose Manuel Christine MD [address] [place] [address] [address] [place] [phone] COVID-19; Referral Request; Labs Only (09/13/19 [...] by provider. Routed for testing ordering. Vehicle: [employer] Color: Dark Green Cell #: [phone] Spoke to patient and verbally gave instructions [...] unspecified documented in this encounter Care Teams Navy Material Inspector Relationship Specialty Start Date End Date Reynold Cheng MD [address] [place] [address] BANDAR GUARDADO [phone] PCP - General 12/15/15 09/12/19 documented as of this encounter
--- OUTSIDE RECORDS SUMMARY | 2024-02-17 12:16 | XMS_ITS | Encounter Summary ---
Author Organization [facility] Address [address] [place] [address] Care Team Providers Care Town Clerk Name Role Phone Unknown, Provider Primary Care Provider Unava ilable Encounter Details Date Type Department Care Team (Late st Contact Info) Description 12/11/2015 Results Only [facility] [phone] Ruth Sousa MD [address] [facility] [address] [place] [address] Social History Tobacco Use Types Packs/Day Years [...] ? KIM MCKINLEY ? Accession #: ? [id number] ? : ? 1950 (Age: 65) ??M [...] epidermis present for evaluation, precluding assessment. ??(Dr. Head)/[facility] Document reviewed and electronically signed by: MASSIEL [...] (ASCP) 12/13/2015 10:03 AM End of Report [facility] 12/11/2015 9:02 EDT 12/11/2015 9:02 EDT us Ruth Sousa MD PATHOLOGY ORDERABLES Final Resul t [facility] [address] [place] [address] documented in this encounter Visit Diagnoses Not on filedocumented in this encounter Care Teams Town Clerk Relationship Specialty Start Date End Date Unknown, Provider, PCP - General 11/09/09 12/14/15 documented as of this encounter
--- OUTSIDE RECORDS SUMMARY | 2024-02-17 12:16 | XMS_ITS | Encounter Summary ---
Author Organization [facility] Address [address] [place] [address] Care Team Providers Care River Boat Captain Name Role Phone Reynold Cheng MD Primary Care Provider + Unknown, Provider Primary Care Provider Flor Bartlett Primary Care Provider [phone] Encounter Details Date Type Department Care Team (Late st Contact Info) Description 06/30/2019 Lab Requisition [facility] Pathology & Laboratory Medicine - [facility] [address] [place] [address] Outr Resulting Lab, Provider Social History Tobacco [...] AL ORDERABLES Final Result Performing Organization Address [facility] Co de Phone Number [facility] [address] [place] [address] * COVID-19 TESTING (06/30/2019 14:03 EDT) COVID-19 rt-PCR Result Negative Negative 2019 20:46 EDT [facility] Comment: Negative results do not preclude 2019-nCoV infection and should not be used as the sole basis for treatment or other patient management decisions. Negative results must be combined with clinical observations, patient history, and epidemiological information. This test was developed and its performance characteristics determined by [facility]. It has not been cleared or approved [...] by the FDA Performed on the [employer]. Performing Lab [facility] Hospital Lab 2019 20:46 EDT [facility] Swab ENTIRE NASOPHARYNX / Unknown 06/30/2019 14:03 EDT 06/30/2019 21:57 EDT us Provider Outr Resulting Lab MICROBIOLOGY - GENER AL ORDERABLES Final Result Performing Organization Address City/[facility]/ZIP Co de Phone Number [facility] [address] [place] [address] documented in this encounter Visit Diagnoses Not on filedocumented in this encounter Care Teams River Boat Captain Relationship Specialty Start Date End Date Reynold Cheng MD [address] [facility] [place] [address] PCP - General 12/15/15 09/12/19 Unknown, Provider, [address] [facility] [place] [address] PCP - General 09/13/19 09/15/[address] FNP [address] [facility] [place] [address] PCP - General 09/16/19 documented as of this encounter
--- OUTSIDE RECORDS SUMMARY | 2024-02-17 12:16 | XMS_ITS | Encounter Summary ---
Author Organization [facility] Address [address] [place] [address] Care Team Providers Care Engineering Intern Name Role Phone Flor St Primary Care Provider [phone] Reason for Visit * (Routine) - Receiving Office to Obtain Authorization Specialty Diagnoses / Procedures Referred By Sylvester t Referred To Contact Procedures XR OUTSIDE IMAGES NEURO Unknown, Provider, MD Referral ID Status Reason Start Date Expiration Date Visits Requested Visits Authorized [id number] Receiving Office to Obtain Authorization 07/25/2020 1 1 Encounter Details Date Type Department Care Team (Latest Contact Info) Description 12/20/2019 - 12/20/2019 23:59 EDT Hospital Encounter [facility] Secondary Reads [place] Discharge Disposition: Home [...] on filedocumented in this encounter Care Teams Engineering Intern Relationship Specialty Start Date End Date Flor St FNP PCP - General 09/16/19 documented as of this encounter
--- OUTSIDE RECORDS SUMMARY | 2024-02-17 12:16 | XMS_ITS | Encounter Summary ---
Author Organization [facility] Address [address] [place] [address] Care Team Providers Care Weir Fisher Name Role Phone Flor St Primary Care Provider [phone] Reason for Visit * (Routine) - Receiving Office to Obtain Authorization Specialty Diagnoses / Procedures Referred By Sylvester t Referred To Contact Procedures CT OUTSIDE IMAGES NEURO Unknown, Provider, MD Referral ID Status Reason Start Date Expiration Date Visits Requested Visits Authorized [id number] Receiving Office to Obtain Authorization 07/25/2020 1 1 Encounter Details Date Type Department Care Team (Latest Contact Info) Description 01/06/2020 - 01/06/2020 23:59 EST Hospital Encounter [facility] Secondary Reads [place] Discharge Disposition: [...] on filedocumented in this encounter Care Teams Weir Fisher Relationship Specialty Start Date End Date Flor St FNP PCP - General 09/16/19 documented as of this encounter
--- OUTSIDE RECORDS SUMMARY | 2024-02-17 12:16 | XMS_ITS | Encounter Summary ---
Author Organization [facility] Address [address] [place] [address] Care Team Providers Care Reading Teacher Name Role Phone Alma Rosa Flor ACHARYA Primary Care Provider Encounter Details Date Type Department Care Team (Late st Contact Info) Description 09/30/2023 Lab Requisition [facility] Pathology & Laboratory Medicine - [address] [address] Outr Resulting Lab, Provider Social History Tobacco [...] Lyme Ab Negative Negative 10/01/2023 10:38 EDT [facility] Blood VENOUS BLOOD / Unknown 09/30/2023 10:50 EDT 09/30/2023 21:44 EDT us Provider Outr Resulting Lab IMMUNOLOGY AND SEROL OGY ORDERABLES Final Result [facility] [address] [place] [address] documented in this encounter Visit Diagnoses Not on filedocumented in this encounter Care Teams Reading Teacher Relationship Specialty Start Date End Date Flor St FNP PCP - General 09/16/19 documented as of this encounter
--- OUTSIDE RECORDS SUMMARY | 2024-02-17 12:16 | XMS_ITS | Referral Summary ---
Author Organization [facility] Address [address] [place] [address] Care Team Providers Care Pathology Supervisor Name Role Phone NeetujennieanicetoFlor PATRIZIA Primary [...] Plan of Treatment Not on file Insurance [facility] MEDICARE Care Teams Pathology Supervisor Relationship Specialty Start Date End Date Flor St FNP PCP - General 09/16/19
--- OUTSIDE RECORDS SUMMARY | 2024-02-17 12:16 | XMS_ITS | Encounter Summary ---
Author Organization [facility] Address [address] [place] [address] Care Team Providers Care Toucher Up Name Role Phone Unknown, Provider MD Primary Care Provider Unava ilable Reason for Visit * Reason Comments Pre-procedure Encounter Details Date Type Department Care Team (Late st Contact Info) Description 09/13/2019 10:00 EDT Nurse Only [facility] Testing Department [address] [place] [address] Nurse, [facility] Testing Encounter for screening for other [...] COVID-19 TESTING (09/13/2019 9:51 EDT) Performing Lab [facility] 09/15/2019 13:[address] [facility] Comment: Please indicate the Triage Tier2 Test performed or referred by The [address] [address] COVID-19 rt-PCR Result Not Detected Negative 09/15/2019 13:[address] [facility] Comment: 2019-novel Coronavirus (2019-nCoV) not detected [...] in accordance with CLIA regulations, College of [employer] Pathologists (CAP) guidelines (May 13, 2019), and FDA guidance (Apr 24, 2019). This test is only for use under the Food and Drug Administration's Emergency Use Authorization. 09/13/2019 9:51 EDT 09/13/2019 13:29 EDT Jose Manuel Christine MD MICROBIOLOGY - GENERAL JAMESON SONG Final Result [facility] [address] [place] [address] documented in this encounter Visit Diagnoses Diagnosis Encounter for screening for other viral diseases- Primary documented in this encounter Care Teams Toucher Up Relationship Specialty Start Date End Date Unknown, Provider, PCP - General 09/13/19 09/15/19 documented as of this encounter
--- OUTSIDE RECORDS SUMMARY | 2024-02-17 12:16 | XMS_ITS | Encounter Summary ---
Author Organization [facility] Address [address] [place] [address] Care Team Providers Care Patient Care Secretary Name Role Phone NeetujennieanicetoNancyangelica ACHAYRA Primary Care Provider [phone] Reason for Visit * (Routine/Next Available) - Receiving Office to Obtain Authorization Specialty Diagnoses / Procedures Referred By Sylvester t Referred To Contact Procedures CT OUTSIDE IMAGES CHEST Imaging, External Referral ID Status Reason Start Date Expiration Date Visits Requested Visits Authorized [id number] Receiving Office to Obtain Authorization 01/28/2022 1 1 Encounter Details Date Type Department Care Team (Latest Contact Info) Description 01/25/2022 - 01/25/2022 23:59 EST Hospital Encounter [facility] Secondary Reads [place] Discharge [...] on filedocumented in this encounter Care Teams Patient Care Secretary Relationship Specialty Start Date End Date Flor St FNP PCP - General 09/16/19 documented as of this encounter
--- OUTSIDE RECORDS SUMMARY | 2024-02-17 12:16 | XMS_ITS | Continuity of Care Document ---
Author Organization [facility] Address [address] [place] [phone] Phone Care Team Providers Care Buccaro Name Role Phone [place]ant [place] Joseph Unavailable [...] Office/Outpt New - Low MDM - Time [facility], [address] [place], [place] [address]uite [address] [place] [address], [id number], [place] tel:[phone] [facility] abnormal response to sounds (chief complaint) dizziness (chief complaint) throat sensation (chief complaint) Sensorineural hearing loss (SNHL) of left ear with restricted hearing of right earDizzinessL aryngopharyng eal reflux (LPR) 2 [place]. [address] [facility], [address] [place] [address], [id number], [place]. tel:[phone] Family History Family Member Type Diagnosis Age At Onset Problem (finding) Family history of malignant neoplasm of thyroid Problem (finding) Family history of Heari ng disorder Problem (finding) Family history of Renal disease Problem (finding) Family history of Thyro id disorder Payers Payer name Insurance type Covered libertarian ID Authoriza tion(s) Medicare - Part B Carriers [id number] [facility] [id number] Social History Type Description Quantity Date Captured [...] neck for pain issues. His PCP in [place] ordered an MRI which he has had [...] He was diagnosed with laryngopharyngeal reflux in [facility] and has been taking omeprazole daily [...] neck for pain issues. His PCP in [place] ordered an MRI which he has had [...]
--- OUTSIDE RECORDS SUMMARY | 2024-02-17 12:16 | XMS_ITS | Encounter Summary ---
Author Organization [facility] Address [address] [place] [address] Care Team Providers Care Vp Ad Products And Planning Name Role Phone Unknown, Provider MD Primary [...] on filedocumented in this encounter Care Teams Vp Ad Products And Planning Relationship Specialty Start Date End Date Unknown, Provider, PCP - General 09/13/19 09/15/19 documented as of this encounter
--- OUTSIDE RECORDS SUMMARY | 2024-02-17 12:16 | XMS_ITS ---
Author Organization Unknown Address [address] [place] [phone] Phone Care Team Providers Care Waste Removalist Name Role Phone VINOD Barrera Attending Unavailable RANGEL DA SILVA Primary Unavailable Social History Type Status Start Date End Date Code Code Syst em Smoking History Never smoker (Never Smoked) [id number] SNOMED CT Sex Male Medications Medication Start Date End Date Route Frequency Dose Code Code System Medication Instructions Home Meds Xarelto 15MG Oral Tablet 01/18/2022 Unknown ORAL TWICE A DAY 1 TABLET 4776413 RxNorm TAKE 1 TABLET ORAL TWICE A DAY Xarelto 20MG Oral Tablet 01/18/2022 Unknown ORAL DAILY 1 TABLET [id number] RxNorm TAKE 1 TABLET ORAL DAILY Hospital [...]
--- OUTSIDE RECORDS SUMMARY | 2024-02-17 12:16 | XMS_ITS | Encounter Summary ---
Author Organization [facility] Address [address] [place] [address] Care Team Providers Care Process Development Engineer Name Role Phone Alma Rosa Flor ACHARYA Primary Care Provider [phone] Encounter Details Date Type Department Care Team (Late st Contact Info) Description 01/07/2022 Lab Re[address] [facility] Pathology & Laboratory Medicine - [address] [address] Outr Resulting Lab, Provider Social History Tobacco [...] * LYME AB (01/07/2022 11:35 EST) Pathologist [facility] Lyme Ab Negative Negative 01/08/2022 10:22 EST [facility] Blood VENOUS BLOOD / Unknown 01/07/2022 11:35 EST 01/07/2022 21:15 EST us Provider Outr Resulting Lab IMMUNOLOGY AND SEROL OGY ORDERABLES Final Result Performing Organization Address [facility] de Phone Number [facility] [address] [place] [address] * HIGH SENSITIVITY C-REACTIVE PROTEIN (CARDIOVASCULAR DISEASE) (01/07/2022 11:35 EST) [facility] High Sensitivity CRP <0.34 See Note mg/L 01/07/2022 21:39 EST [facility] Comment: Reference Range: ??Low Risk: ? <1.0 mg/L ??Average Risk: ?? 1.0 - 3.0 mg/L ??High Risk: ?>3.0 mg/L ??Indeterminate*: >10.0 mg/L ??*May be an indication of another source of inflammation or infection Blood VENOUS BLOOD / Unknown 01/07/2022 11:35 EST 01/07/2022 21:15 EST us Provider Outr Resulting Lab CHEMISTRY & BLOOD GA S ORDERABLES Final Result Performing Organization Address [facility] Co de Phone Number [facility] [address] [place] [address] documented in this encounter Visit Diagnoses Not on filedocumented in this encounter Care Teams Process Development Engineer Relationship Specialty Start Date End Date Flor St FNP PCP - General 09/16/19 documented as of this encounter
--- OUTSIDE RECORDS SUMMARY | 2024-02-17 12:16 | XMS_ITS | Encounter Summary ---
Author Organization [facility] Address [address] [place] [address] Care Team Providers Care Lpta Name Role Phone NeetujennieanicetoFlor PATRIZIA Primary Care Provider Encounter Details Date Type Department Care Team (Late st Contact Info) Description 12/20/2019 Lab Requisition [facility] Pathology & Laboratory Medicine - [address] [address] Outr Resulting Lab, Provider Social History Tobacco [...] 211 - 911 pg/mL 12/20/2019 23:16 EDT [facility] Blood VENOUS BLOOD / Unknown 12/20/2019 11:53 EDT 12/20/2019 22:01 EDT us Provider Outr Resulting Lab CHEMISTRY & BLOOD GA S ORDERABLES Final Result [facility] [address] [place] [address] documented in this encounter Visit Diagnoses Not on filedocumented in this encounter Care Teams Lpta Relationship Specialty Start Date End Date Flor St FNP PCP - General 09/16/19 documented as of this encounter
--- OUTSIDE RECORDS SUMMARY | 2024-02-17 12:16 | XMS_ITS | Encounter Summary ---
Author Organization [facility] Address [address] [place] [address] Care Team Providers Care Vocational Rehabilitation Consultant Name Role Phone NeetujennieanicetoFlor PATRIZIA Primary Care Provider Encounter Details Date Type Department Care Team (Late st Contact Info) Description 04/26/2022 13:45 EST Phlebotomy Only [facility] 2 Phlebotomy [address] [place] [address] Utility Aircrewman, Acc Phlebotomy Rib pain; Family history of [...] SERUM FREE LIGHT CHAINS (04/26/2022 14:00 EST) Maili Free Lt Chain 1.99(H) 0.33 - 1.94 mg/dL 04/29/2022 10:53 EST [facility] Lambda Free Lt Chain 1.50 0.57 - 2.63 mg/dL 04/29/2022 10:53 EST [facility] Maili/Lambda Ratio 1.33 0.26 - 1.65 04/29/2022 10:53 EST [facility] Blood VENOUS BLOOD / Unknown Venipuncture / Unknown 04/26/2022 14:00 EST 04/26/2022 15:04 EST us Flory Fried PA-C CHEMISTRY & BLOOD GAS OR DERABLES Final Result [facility] [address] [place] [phone] * SPEP WITH IMMUNOTYPING PERFORMABLE (04/26/2022 14:00 EST) Albumin % 62.4 55.8 - 66.1 % 04/29/2022 13:40 EST [facility] Albumin g/dL 4.3 3.6 - 5.2 g/dL 04/29/2022 13:40 EST [facility] Alpha-1 % 3.9 2.9 - 4.9 % 04/29/2022 13:40 EST [facility] Alpha-1 g/dL 0.30 0.15 - 0.40 g/dL 04/29/2022 13:40 [facility] Alpha-2 % 9.6 7.1 - 11.8 % 04/29/2022 13:40 [facility] Alpha-2 g/dL 0.70 0.50 - 1.00 g/dL 04/29/2022 13:40 [facility] Beta % 10.7 8.4 - 13.1 % 04/29/2022 13:40 [facility] Beta g/dL 0.70 0.60 - 1.20 g/dL 04/29/2022 13:40 [facility] Gamma % 13.4 11.1 - 18.8 % 04/29/2022 13:40 [facility] Gamma g/dL 0.90 0.60 - 1.60 g/dL 04/29/2022 13:40 [facility] SPEP Comment No apparent monoclonal protein seen on serum electrophoresis 04/29/2022 13:40 [facility] Comment:See scanned/suppleme ntary report. Immunotyping , Serum Current Interpretation: Negative for monoclonal immunoglobulins. Reviewed by: Jerry Albarran MD 04/29/2022 1223 04/29/2022 13:40 [facility] Total Protein 6.9 6.3 - 8.2 g/dL 04/29/2022 13:40 [facility] Blood VENOUS BLOOD / Unknown Venipuncture / Unknown 04/26/2022 14:00 EST 04/26/2022 15:04 EST us Flory Fried PA-C CHEMISTRY & BLOOD GAS OR DERABLES Final Result [facility] [address] [place] [address] * PROTEIN, TOTAL (04/26/2022 14:00 EST) Blood VENOUS BLOOD / Unknown Venipuncture / Unknown 04/26/2022 14:00 EST 04/26/2022 15:04 EST us Flory Fried PA-C CHEMISTRY & BLOOD GAS OR DERABLES Final Result [facility] [address] [place] [phone] documented in this encounter Visit Diagnoses Diagnosis Rib pain Chest pain, unspecified Family history of multiple myeloma Family history of other lymphatic and hematopoietic neoplasms documented in this encounter Care Teams Vocational Rehabilitation Consultant Relationship Specialty Start Date End Date Flor St FNP PCP - General 09/16/19 documented as of this encounter
--- OUTSIDE RECORDS SUMMARY | 2024-02-17 12:16 | XMS_ITS | Encounter Summary ---
Author Organization [facility] Address [address] [place] [address] Care Team Providers Care Construction Director Name Role Phone Flor St Primary Care Provider [phone] Reason for Visit * Reason Comments Pain * Consult (Routine) - Closed Specialty Diagnoses / Procedures Referred By Sylvester saldana Referred To Contact Orthopedic Surgery Diagnoses Neck pain Flor St FNP Phone: tel: fax: [facility] [place] [address] Phone: tel: fax: Referral ID Status Reason Start Date Expiration Date Visits Re quested Visits Authorized [id number] Closed 1 1 Encounter Details Date Type Department Care Team (Late st Contact Info) Description 12/21/2020 11:00 EDT Office Visit [facility] [place] [address] Nata Monroe PA-C [address] [facility] [place] [address] Neck pain (Primary Dx) Social [...] the clinic today, 12/21/2020, with 1. 100% HEALTH PROMOTER, radiates to his head causing him headaches. [...] identified Assessment: 70 y.o. male with 1. HEALTH PROMOTER most likely from degenerative disc and facet [...] needed. added in this encounter Care Teams Construction Director Relationship Specialty Start Date End Date Flor St FNP PCP - General 09/16/19 documented as of this encounter
--- OUTSIDE RECORDS SUMMARY | 2024-02-17 12:17 | XMS_ITS | Encounter Summary ---
Author Organization [facility] Address [address] [place] [address] Care Team Providers Care Lamination Technician Name Role Phone Unknown, Provider Primary Care Provider Unava ilable Encounter Details Date Type Department Care Team (Late st Contact Info) Description 11/06/2009 Results Only [facility] [phone] Ruth Sousa MD [address] [facility] [address] [place] [address] Social History Tobacco Use Types Packs/Day Years [...] ARLEN, KIM Rahman ? Accession #: ? [id number] ? : ? 1950 (Age: 59) ??M ? Collect Date: ? 11/06/2009 ? Location: ? [facility] ? Receive Date: ? 11/08/2009 ? Provider: RUTH SOUSA MD ? Copy to: MIKEL KAROLINA DIGITAL MARKETING STRATEGIST ? Final Pathologic Diagnosis: ? Skin of [...] Final Resul t [facility] [address] [place] [address] documented in this encounter Visit Diagnoses Not on filedocumented in this encounter Care Teams Lamination Technician Relationship Specialty Start Date End Date Unknown, Provider, PCP - General 11/09/09 12/14/15 documented as of this encounter
[2024-02-17 14:37] LABS: HCT 44.3 % (40.0-50.0); HGB 14.5 g/dL (13.5-17.5); MCHC 32.7 % (32.0-36.0); MCV 98 fL (80-95); Platelet Count 183 10^3/uL (130-400); RBC 4.53 10^6/uL (4.36-5.78); RDW 12.2 % (11.8-14.1); RDW-SD 43.7 fL; WBC 4.72 10^3/uL (4.4-10.8)
[2024-02-17 15:07] LABS: Anion Gap 7.8 mmol/L (3-11); BUN 18 mg/dL (7-18); CO2 31.2 mmol/L (21.0-32.0); CREATININE 1.2 mg/dL (0.70-1.30); Calcium 9.5 mg/dL (8.5-10.1); Chloride 106 mmol/L (98-107); Estimated GFR 64.65 (mL/min/1.73m2); Glucose 97 mg/dL (74-106); Potassium 4.7 mmol/L (3.5-5.1); Sodium 145 mmol/L (136-145); TSH 2.39 uIU/mL (0.36-3.74)
== END 2024-02-17 12:13 | disposition home or self-care (01) ==
LOC: NCHCN 12:12
PROVIDERS: PCP Family Medicine; Visit Provider Family Medicine
DX: I10 Essential (primary) hypertension (principal)
CPT/HCPCS: 80048; 85027; 84443

== ENCOUNTER 2024-08-16 18:34 | Outpatient (REF) | payer MEDICARE, BC, SELFPAY | END 2024-08-16 18:35 | disposition home or self-care (01) | LOC: NCHCN 18:34 | PROVIDERS: PCP Family Medicine; Visit Provider Family Medicine | DX: J02.9 Acute pharyngitis, unspecified (principal) | CPT/HCPCS: 87070 ==